=== PATIENT | female | born 1985 | race Caucasian/White ===

== ENCOUNTER 2020-09-02 08:48 | Inpatient (IN) | payer MEDICAID, SELFPAY ==
[2020-09-02] VITALS (14 sets, daily range): BP systolic 111–134; BP diastolic 2–92; PULSE 73–111; RESP 18–20; TEMP 36.5–36.9; O2SAT 94–100; BMI 34.2
--- NOTE | 2020-09-02 09:04 | W.ED.ABDPA2 ---
HPI - Abdominal Pain General: Chief Complaint: Abdominal Pain Stated Complaint: UPPER ABD PAIN W/ N/V Time Seen by Provider: 09/02/20 08:50 Source: patient Mode of arrival: ambulatory Limitations: no limitations History of Present Illness: HPI narrative: 35-year-old female states she has been having epigastric abdominal pain along with vomiting since last night. She states she ate chicken yesterday and started having pain after that. States her pain is currently a 7 out of 10. She continues to have vomiting. Denies any fever. She has had diarrhea as well. MD elicited complaint: abdominal pain Onset (ago): hour(s) Pain Consistency: constant Location: RUQ Associated Symptoms: Reports diarrhea, nausea and vomiting; Denies chills, dysuria and fever(s) Review of Systems Const: Denies: fever(s), chills, body aches or change in appetite Eyes: Denies: blurry vision or eye discomfort ENMT: Denies: throat pain or dental pain Card: Denies: chest pain Resp: Denies: dyspnea GI: Reports: abdominal pain, nausea, vomiting and diarrhea : Denies: dysuria Musc: Denies: neck pain or back pain Skin/Breast: Denies: rash Neuro: Denies: headache(s) Psych: Denies: depression Jorge/Lymph: Denies: easy bruising All/Imm: Denies: urticaria Physical Exam Const: COMMON NORMALS: no acute distress, patient oriented x3 and healthy appearing HENMT: COMMON NORMALS: normocephalic and atraumatic HEAD & SCALP: normocephalic and atraumatic Eye: COMMON NORMALS: Equal, round and reactive pupils present and EOMs intact bilaterally PUPIL: Yes Equal, round and reactive pupils present Neck/C-Spine: COMMON NORMALS: full ROM and supple Chest: COMMONS NORMALS: normal inspection of the chest and normal palpation of entire chest wall Resp: COMMON NORMALS: normal respiratory effort, No retractions, No use of accessory muscles and clear to auscultation bilaterally AUSCULTATION: clear to auscultation bilaterally Cardio: COMMON NORMALS: regular rate, regular rhythm and No murmurs present (Cardio) RATE: regular rate RHYTHM: regular rhythm GI: COMMON NORMALS: Normal to inspection, nondistended, normoactive bowel sounds present, Soft to palpation and no masses PALPATION: Yes Soft to palpation and Yes Tenderness to palpation present (GI) (epigastric and ruq tenderness) Extremity: COMMON NORMALS: normal to inspection and full ROM Neuro: COMMON NORMALS: patient oriented x3, moves all extremities and no focal motor deficits Psych: COMMON NORMALS: mental status grossly normal, Normal thought process present and cooperative THOUGHT PROCESS: Normal thought process present Skin: COMMON NORMALS: no rashes or lesions noted and no wounds GENERAL SKIN EXAM: no rashes or lesions noted Course Vital Signs: Vital signs: Vital Signs Temperature 97.9 F 09/02/20 09:01 Pulse Rate 98 09/02/20 10:24 Respiratory Rate 18 09/02/20 10:24 Blood Pressure 111/57 09/02/20 10:24 Pulse Oximetry 95 09/02/20 10:24 MDM - Abdominal Pain MDM Narrative: Medical decision making narrative: Patient presents with abdominal pain along with vomiting. CT shows a small bowel obstruction likely from adhesions. Will place an NG tube I spoke to Dr. Mirza of surgery and will admit. Patient has been stable while here. Lab Data: Labs: Lab Results 09/02/20 09/02/20 09/02/20 Range/Units 09:21 09:21 09:50 WBC 10.9 H (4.0-10.0) 10^3/ uL RBC 4.01 L (4.1-5.3) 10^6/u L Hgb 14.1 (11.5-15.3) g/dL Hct 41.0 (37.0-47.0) % MCV 102.2 H (81-99) fL MCH 35.2 H (28.0-34.0) pg MCHC 34.4 (30.0-36.0) g/dL RDW 13.1 (12.1-15.1) % Plt Count 327 (130-400) 10^3/c mm MPV 9.0 (7.4-10.4) fL Neut % (Auto) 74.6 % Lymph % (Auto) 17.2 % [place] % (Auto) 6.5 % Eos % (Auto) 0.8 % Baso % (Auto) 0.6 % Neut # (Auto) 8.15 H (1.8-7.7) 10^3/u L Lymph # (Auto) 1.9 (0.8-4.8) 10^3/u L [place] # (Auto) 0.7 (0.2-0.9) 10^3/u L Eos # (Auto) 0.1 (0.0-0.8) 10^3/u L Baso # (Auto) 0.1 (0.0-0.1) 10^3/u L Nucleated RBC % (a uto) 0 % Nucleated RBCs # 0.0 /100WBC Sodium 139 (136-145) mmol/L Potassium 3.9 (3.5-5.1) mmol/L Chloride 102 (98-107) mmol/L Carbon Dioxide 27 (22-29) mmol/L Anion Gap 13.9 (5-19) BUN 16 (6-20) mg/dL Creatinine 0.8 (0.5-0.9) mg/dL GFR Calculation 81.2 L (90-130) mL/min Glucose 109 (65-115) mg/dL Calculated Osmolal ity 290 (285-295) mOsm/k g Calcium 9.1 (8.5-10.5) mg/dL Total Bilirubin 0.2 (0.15-1.2) mg/dL AST 45 H (0-32) U/L ALT 42 H (0-33) U/L Alkaline Phosphata se 68 (35-105) IU/L Total Protein 6.6 (6.6-8.7) g/dL Albumin 3.9 (3.5-5.2) g/dL Globulin 2.7 (1.3-4.6) g/dL Lipase 37 (13-60) U/L HCG, Qual Negative (Negative) Imaging Data ^: US: Radiologist's impression: [address] [address] Ultrasound Report Signed Patient: Domi Charles Unit #: [id number] : 1985 Age/Sex: 35 / F ADM Date: 09/02/20 Loc: ER Room/Bed: Attending Dr: Ordering Provider/Ordering MD: Yamile Maldonado MD Date of Service: 09/02/20 Procedure(s): US gall bladder 43213 Accession Number(s): [id number] Report Number: [id number] WS: [id number] RIGHT UPPER QUADRANT ULTRASOUND HISTORY: ruq pain COMPARISON: None available. Liver: 16.8 cm in length. Normal size liver. No bile duct dilatation or mass. Gallbladder: Normally distended gallbladder with no stones or wall thickening. CBD: 0.4 cm Pancreas: Normal size and echogenicity. Right kidney: 10.6 cm in length. Normal size and echogenicity. No hydronephrosis or mass. Aorta and IVC: Unremarkable abdominal aorta and IVC. No ascites. US/US gall bladder [id number] IMPRESSION: Normal RIGHT upper quadrant ultrasound. CT Abd/Pel: Radiologist's impression: [facility] [address] [place] [address] CT Scan Report Signed Patient: Domi Charles Unit #: [id number] : 1985 Age/Sex: 35 / F ADM Date: 09/02/20 Loc: ER Room/Bed: Attending Dr: Ordering Provider/Ordering MD: Yamile Maldonado MD Date of Service: 09/02/20 Procedure(s): CT abdomen pelvis w con* [id number] Accession Number(s): [id number] Report Number: [id number] WS: [id number] CT ABDOMEN AND PELVIS WITH CONTRAST HISTORY: Abdominal and epigastric pain with nausea, vomiting and diarrhea. TECHNIQUE: Imaging performed of the abdomen and pelvis with IV contrast. Single phase imaging of the abdomen. Coronal and sagittal reformats are submitted. All CT scans at [facility] use at least one of these dose optimization techniques: automated exposure control; mA and/or kV adjustment per patient size (includes targeted exams where dose is matched to clinical indication); or iterative reconstruction. IV CONTRAST: Omnipaque 300; 95 mL IV. Oral contrast: No DLP: 883.06 mGy.cm COMPARISON: None available. Lower thorax: Lung bases are clear. Heart is normal size. No hiatal hernia. Liver/biliary system: Normal size liver. 12 mm cyst in the lateral LEFT lobe. Gallbladder: Normal. No gallstones or wall thickening. No pericholecystic fluid. Pancreas: Normal. Spleen: Normal. Adrenal glands: Normal. Right kidney: Normal. Left kidney: Cortical cyst measures 4 mm in the mid kidney. No obstruction. Aorta: Normal. Lymphadenopathy: None. Free fluid: There is a small amount of free fluid in the RIGHT lower quadrant surrounding several of the distal small bowel loops. No free air is identified. GI tract: Mildly dilated small bowel loops. Loops are distended with fluid measuring up to 2.8 cm in diameter. There is increased hyperemia involving the distal small bowel mucosa and there is a changing caliber in the RIGHT lower quadrant of the small bowel loops with adjacent free fluid. The appendix is normal. The abnormal small bowel process extends to the uterus and RIGHT fallopian tube. Abdominal wall: Unremarkable abdominal wall. No hernia. Pelvis: Small amount of free fluid in the pelvis. Uterus is midline. Free fluid in RIGHT lower quadrant Bones: Unremarkable. CT/CT abdomen pelvis w con* [id number] IMPRESSION: 1. Small bowel obstruction with a changing caliber in the RIGHT lower quadrant which may be due to adhesions. No mass is identified. The fluid extends to the uterus and surrounds the RIGHT fallopian tube. 2. Free fluid in the RIGHT lower quadrant adjacent to the small bowel changing caliber. 3. Normal appendix. Discharge Plan Discharge Patient Disposition: Admitted As Inpatient Clinical Impression: Small bowel obstruction Condition: Stable Coding Level of Care Code ED Incident Engineer for Nikig Fwd Exam Comprehensive
[2020-09-02] MEDS: morphine 4 mg/mL SDV 1 mL IVP (09:26)
[2020-09-02] MEDS: ondansetron 2 mg/ML SDV 2 mL 4 MG IVP (09:26)
[2020-09-02] MEDS: sodium chloride 0.9% 1,000 ML 999 ML IV (09:27)
[2020-09-02 09:33] LABS: Basophils # 0.1 10^3/uL (0.0-0.1); Basophils % 0.6 %; Eosinophils # 0.1 10^3/uL (0.0-0.8); Eosinophils % 0.8 %; Hemoglobin 14.1 g/dL (11.5-15.3); Lymphocytes # 1.9 10^3/uL (0.8-4.8); Lymphocytes % 17.2 %; Mean Corpuscular HGB Conc 34.4 g/dL (30.0-36.0); Mean Corpuscular Hemoglobin 35.2 pg (28.0-34.0); Mean Corpuscular Volume 102.2 fL (81-99); Monocytes # 0.7 10^3/uL (0.2-0.9); Monocytes % 6.5 %; Neutrophils # 8.15 10^3/uL (1.8-7.7); Neutrophils % 74.6 %; Nucleated Red Blood Cells % 0 %; Platelet Count 327 10^3/cmm (130-400); Red Blood Count 4.01 10^6/uL (4.1-5.3); Red Cell Distribution Width 13.1 % (12.1-15.1); White Blood Count 10.9 10^3/uL (4.0-10.0)
[2020-09-02 09:46] LABS: Alanine Aminotransferase 42 U/L (0-33); Albumin Level 3.9 g/dL (3.5-5.2); Alkaline Phosphatase 68 IU/L (35-105); Blood Urea Nitrogen 16 mg/dL (6-20); Calcium 9.1 mg/dL (8.5-10.5); Carbon Dioxide 27 mmol/L (22-29); Chloride 102 mmol/L (98-107); Globulin 2.7 g/dL (1.3-4.6); Glomerular Filtration Rate 81.2 mL/min (90-130); Glucose 109 mg/dL (65-115); Lipase 37 U/L (13-60); Osmolality Calculated 290 mOsm/kg (285-295); Total Bilirubin 0.2 mg/dL (0.15-1.2); Total Protein 6.6 g/dL (6.6-8.7)
--- NOTE | 2020-09-02 09:58 | CT_ITS ---
WS: [id number] CT ABDOMEN AND PELVIS WITH CONTRAST HISTORY: Abdominal and epigastric pain with nausea, vomiting and diarrhea. TECHNIQUE: Imaging performed of the abdomen and pelvis with IV contrast. Single phase imaging of the abdomen. Coronal and sagittal reformats are submitted. All CT scans at [facility] use at least one of these dose optimization techniques: automated exposure control; mA and/or kV adjustment per patient size (includes targeted exams where dose is matched to clinical indication); or iterativ e reconstruction. IV CONTRAST: Omnipaque 300; 95 mL IV. Oral contrast: No DLP: 883.06 mGy.cm COMPARISON: None available. Lower thorax: Lung bases are clear. Heart is normal size. No hiatal hernia. Liver/biliary system: Normal size liver. 12 mm cyst in the lateral LEFT lobe. Gallbladder: Normal. No gallstones or wall thickening. No pericholecystic fluid. Pancreas: Normal. Spleen: Normal. Adrenal glands: Normal. Right kidney: Normal. Left kidney: Cortical cyst measures 4 mm in the mid kidney. No obstruction. Aorta: Normal. Lymphadenopathy: None. Free fluid: There is a small amount of free fluid in the RIGHT lower quadrant surrounding several of the distal small bowel loops. No free air is identified. GI tract: Mildly dilated small bowel loops. Loops are distended with fluid measuring up to 2.8 cm in diameter. There is increased hyperemia involving the distal small bowel mucosa and there is a changin g caliber in the RIGHT lower quadrant of the small bowel loops with adjacent free fluid. The appendix is normal. The abnormal small bowel process extends to the uterus and RIGHT fallopian tube. Abdominal wall: Unremarkable abdominal wall. No hernia. Pelvis: Small amount of free fluid in the pelvis. Uterus is midline. Free fluid in RIGHT lower quadra nt Bones: Unremarkable. CT/CT abdomen pelvis w con* [id number] IMPRESSION: 1. Small bowel obstruction with a changing caliber in the RIGHT lower quadrant which may be due to adhesions. No mass is identified. The fluid extends to the uterus and surrounds the RIGHT fallopian tube. 2. Free fluid in the RIGHT lower quadrant adjacent to the small bowel changing caliber. 3. Normal appendix.
[2020-09-02 10:03] LABS: Anion Gap 13.9 (5-19); Potassium 3.9 mmol/L (3.5-5.1); Sodium 139 mmol/L (136-145)
[2020-09-02 10:11] LABS: Aspartate Amino Transferase 45 U/L (0-32)
[2020-09-02 10:19] LABS: HCG Qualitative Urine. Negative (Negative)
[2020-09-02] MEDS: iohexol 300 mg/mL 100 mL Btl IV (10:31)
[2020-09-02] MEDS: LORazepam 2 mg/mL INJ 1 mL 1 MG IVP (11:20)
[2020-09-02] MEDS: HYDROmorphone 1 mg/mL INJ 1 mL 0.5 MG IVP (11:20)
--- NOTE | 2020-09-02 11:48 | XR_ITS ---
WS: [id number] PORTABLE CHEST HISTORY: post NGT placement COMPARISON: None available. Nasogastric tube is been placed with tip terminating at the GE junction. The proximal port is above t he GE junction. Lungs are clear and well expanded. No pleural effusion or pneumothorax. Cardiac size: Normal. Mediastinum/Aorta: Normal mediastinum. No osseous abnormality seen. XR/XR chest 1V portable [id number] IMPRESSION: Nasogastric tube needs to be advanced at least 10 cm for more optimal positioni ng.
[2020-09-02] MEDS: sodium chloride 0.9% 1,000 ML 100 ML IV (16:23)
--- NOTE | 2020-09-02 17:45 | XR_ITS ---
WS: [id number] XR chest 1V portable [id number] REASON FOR EXAM: NG TUBE PLACEMENT CONFIRMATION FINDINGS: NG tube has been advanced since the previous examination of earlier this same day. The tube is moved from the midesophagus to a position compatible with the body of the stomach. The lung thomas appear clear and the heart and mediastinum are within normal limits. XR/XR chest 1V portable [id number] IMPRESSION: Nasogastric tube now in proper position.
--- NOTE | 2020-09-02 21:56 | PM.HP ---
Providers/Chief Complaint Admitting Physician: Maximiliano Mirza MD Primary Care Provider: Alena Doss Chief Complaint: UPPER ABD PAIN W/ N/V History of Present Illness Domi Charles is a 35 year old female who presents to the ER today with generalized abdominal pain worse on the right than the left associate with multiple episodes of nausea and vomiting since yesterday evening. Patient states that the pain is constant, sharp, does not radiate, no aggravating or relieving factors. She denies any fevers or chills. She states that she has a longstanding history of constipation for which she takes MiraLAX daily and she usually has loose bowel movements. No prior colonoscopy. No prior admissions for bowel obstruction. Review of Systems General: Reports: 10 or more systems reviewed and unremarkable except in HPI and below Medications/Allergies Home Medications Medication Instructions Recorded Confirmed Last Taken Type fexofenadine [Samaria] 180 mg PO DAILY@08 09/02/20 09/02/20 09/01/20 History Allergies Allergy/AdvReac Type Severity Reaction Status Date / Time No Known Allergies Allergy Verified 09/02/20 09:05 PFSH Acute PFSH: Surgical History H/O oophorectomy History of delivery Female Reproductive History: Date of last menstrual period: 07/17/20 Vitals/I&O/Wt Last Vital Signs Temp 98.4 F 09/02/20 20:00 Pulse 95 09/02/20 20:00 Resp 19 H 09/02/20 20:00 BP 134/82 09/02/20 20:00 Pulse Ox 94 09/02/20 20:00 Weight last 48 hrs Weight 187 lb Physical Exam Narrative: EXAM NARRATIVE: HEENT: Normocephalic Eye: Sclera /conjunctiva normal Respiratory and chest: Bilateral clear breath sounds on auscultation Cardiovascular: Normal S1 and S2 heart sounds Abdomen: Soft to palpation, mildly tender right lower quadrant, no guarding or rigidity Neurological: Oriented to place person and time Skin: Intact, no lesions appreciated on gross exam Data : 09/02/20 09:21 09/02/20 09:21 A&P Assessment and plan (1) Small bowel obstruction: 35-year-old female who presents with abdominal pain, nausea, vomiting with a longstanding history of constipation. She has had prior and oophorectomy. CT scan showed possible small bowel obstruction. Currently patient is hemodynamically stable with no evidence of peritonitis. Admit as inpatient NG tube to low intermittent suction IV fluids Pepcid for GI prophylaxis Lovenox for DVT prophylaxis Abdominal series in the morning CBC, BMP daily Status: Acute Attestations Medical Necessity Statement*: Patient will need greater than 2 nights of inpatient stay to ensure resolution of obstruction. Coding Level of Care Code Acute Weight Loss Consultant for Leidy Agosto Diagnoses Small bowel obstruction K56.609
[2020-09-02] MEDS: morphine 4 mg/mL SDV 1 mL 2 MG IVP (23:44)
[2020-09-02] MEDS: famotidine 20 mg/2 mL INJ IVP (23:45)
[2020-09-03] VITALS (10 sets, daily range): BP systolic 115–132; BP diastolic 66–83; PULSE 70–104; RESP 16–20; TEMP 36.7–37.2; O2SAT 89–98
[2020-09-03] MEDS: D5-NS 0.45% + KCL 20 mEq 20 MEQ/1,000 ML BAG 100 MEQ IV ×3 (02:27→22:04)
[2020-09-03 05:04] LABS: Basophils % 0.4 %; Eosinophils # 0.2 10^3/uL (0.0-0.8); Eosinophils % 2.5 %; Hematocrit 36.4 % (37.0-47.0); Hemoglobin 12.1 g/dL (11.5-15.3); Lymphocytes # 2.4 10^3/uL (0.8-4.8); Lymphocytes % 30.5 %; Mean Corpuscular HGB Conc 33.2 g/dL (30.0-36.0); Mean Corpuscular Hemoglobin 34.4 pg (28.0-34.0); Mean Corpuscular Volume 103.4 fL (81-99); Mean Platelet Volume 8.9 fL (7.4-10.4); Monocytes # 0.7 10^3/uL (0.2-0.9); Monocytes % 8.8 %; Neutrophils # 4.52 10^3/uL (1.8-7.7); Neutrophils % 57.4 %; Nucleated Red Blood Cells % 0 %; Platelet Count 280 10^3/cmm (130-400); Red Blood Count 3.52 10^6/uL (4.1-5.3); Red Cell Distribution Width 13.2 % (12.1-15.1); White Blood Count 7.9 10^3/uL (4.0-10.0)
[2020-09-03 05:30] LABS: Anion Gap 11.5 (5-19); Blood Urea Nitrogen 14 mg/dL (6-20); Calcium 8.3 mg/dL (8.5-10.5); Carbon Dioxide 26 mmol/L (22-29); Chloride 107 mmol/L (98-107); Glomerular Filtration Rate 62.7 mL/min (90-130); Glucose 91 mg/dL (65-115); Osmolality Calculated 292 mOsm/kg (285-295); Potassium 3.5 mmol/L (3.5-5.1); Sodium 141 mmol/L (136-145)
--- NOTE | 2020-09-03 05:31 | PC.NURSE ---
AT THE START OF THE SHIFT THE NG TUBE WAS ADVANCED APPROXIMATELY 10 CM FURTHER. STOMACH CONTENTS WERE CLEAR TO YELLOW BILE AT THIS TIME. THROUGH OUT THE NIGHT IT MAINTAINED THIS CONTENT. THE PATIENT REPORTS SHE WAS ABLE TO REST AND SLEEP WELL.
--- NOTE | 2020-09-03 06:00 | XR_ITS ---
WS: [id number] XR abdomen min 2V [id number] REASON FOR EXAM: sbo FINDINGS: The nasogastric tube has been passed to a position beyond the ligament of Treitz. Gas is seen within the colon and there is a dilated loop of small bowel in the upper mid abdomen. No free air or retroperitoneal air. No mass or significant calcification. XR/XR abdomen min 2V [id number] IMPRESSION: Nasogastric tube position and bowel gas pattern as above.
[2020-09-03] MEDS: enoxaparin 40 mg/0.4 mL Syringe SUBCUT (06:39)
[2020-09-03] MEDS: morphine 4 mg/mL SDV 1 mL 2 MG IVP ×4 (10:13→22:30)
[2020-09-03] MEDS: famotidine 20 mg/2 mL INJ IVP ×2 (10:13→22:29)
--- NOTE | 2020-09-03 12:51 | PC.CHAP ---
Pastoral Care Encounter/Spiritual Assessment Type of Contact [] Declined artificial insemination technician visit [] Patient/Family/Request visit [] Outpatient visit [] Follow-up visit [] Physician referral [] Code/Alert [] Routine visit [] Staff referral [] Actively dying [] Patient sleeping [] Family support [] [] Out of room [] Palliative care [] [] Receiving care in room [] Pre-surgical visit [] Trauma [] Long length of stay [] ICU visit [xx] Other: Follow up needed Relational/Emotional Strength [] Patient feels connected with others/family/visitors/staff [] Distress [] Loneliness/isolation [] Abandonment Spirituality of Patient [] Person of Sheila [] Attends [employer] of their Sheila [] Believes in Prayer [] Reads Bible or Christian materials [] There are Spiritual issues to be addressed Shirrer Interventions [] Prayer [] Active listening [] Non-anxious presence [] Spiritual/emotional support [] Crisis/trauma care [] Spiritual counseling [] Bereavement support [] Provided bereavement packet [] Provided Bible/devotional materials [] Provided toy/stuffed animal, coloring book to patient or family member [] Provided Communion [] Anointing/[place] [] Salvation [] Completed spiritual assessment [] Other: Impact on Illness or Injury [] Angry [] Fearful [] Anxious [] Often cries [] Exhaustion [] Unable to work [] Unable to attend amish [] Unable to walk/stand [] Unable to read [] Unable to drive [] Unable to eat/drink [] Unable to sleep [] Unable to be with family [] Patient intubated [] Other: Summary Very messy mishap occurred requiring housekeeping and med staff lelngth of time to clean up. No artificial insemination technician visit. Time spent with patient
--- NOTE | 2020-09-03 17:22 | P.PN_ITS ---
Subjective Subjective: Interval history: Patient denies significant abdominal pain, no nausea or vomiting, NG tube to suction, flatus present, no BM Vitals/I&O/Wt Last Vital Signs Temp 99.0 F 09/03/20 15:12 Pulse 89 09/03/20 15:12 Resp 17 09/03/20 15:12 BP 115/66 09/03/20 15:12 Pulse Ox 89 L 09/03/20 15:12 09/03/20 09/03/20 09/03/20 06:59 14:59 22:59 Intake Total 1000 / 1000 Output Total 300 / 500 Balance -300 / -500 1000 / 1000 Weight last 48 hrs Weight 187 lb Physical Exam Narrative: EXAM NARRATIVE: Abdomen: Soft, nondistended, minimally tender Data : 09/03/20 04:39 09/03/20 04:39 A&P Assessment and plan (1) Small bowel obstruction: 35-year-old female who presents with small bowel obstruction currently patient is hemodynamically stable with no evidence of peritonitis. Abdominal x- ray shows air in the colon Admit as inpatient NG tube to be clamped 1 bottle magnesium citrate and milk of molasses enema Abdominal series tomorrow morning Start clear liquid diet IV fluids Pepcid for GI prophylaxis Lovenox for DVT prophylaxis Abdominal series in the morning CBC, BMP daily Status: Acute Attestations Medical Necessity Statement*: Small bowel obstruction requiring continued inpatient stay Coding Level of Care Code Acute Certified Medicine Aide for Leidy Agosto Diagnoses Small bowel obstruction K56.609
[2020-09-04] VITALS (11 sets, daily range): BP systolic 116–131; BP diastolic 74–88; PULSE 70–90; RESP 16–20; TEMP 36.3–36.8; O2SAT 94–98
--- NOTE | 2020-09-04 03:27 | PC.NURSE ---
AT APPROXIMATELY 2200 THE PATIENT REPORTED SHE WAS HAVING AN INCREASE IN ABDOMINAL PAIN AND FELT LIKE HER STOMACH WAS GETTING FULL. SHE DENIED ANY BOWEL MOVEMENTS. SHE IS PASSING GAS. PATIENT HOOKED BACK UP TO SUCTION. AFTER ABOUT 30 MINUTES THE PATIENT WAS REASSESSED AND REPORTED SHE FELT SOME RELIEF. THE PATIENT HAS BEEN ABLE TO REST SINCE.
[2020-09-04] MEDS: morphine 4 mg/mL SDV 1 mL 2 MG IVP ×5 (03:43→22:51)
--- NOTE | 2020-09-04 06:00 | XRR_ITS ---
PROCEDURE INFORMATION: Exam: XR Abdomen, 2 Views Exam date and time: 09/04/2020 6:07 AM Age: 35 years old Clinical indication: Abdominal pain; Generalized; Additional info: Sbo TECHNIQUE: Imaging protocol: XR of the abdomen. Views: 2 Views. COMPARISON: CR XR abdomen min 2V [id number] 09/03/2020 6:31 AM FINDINGS: Tubes, catheters and devices: NG tube terminates in the distal stomach. Gastrointestinal tract: Minimal scattered air-fluid levels in bowel loops in the left upper quadrant, slightly decreased. Bowel gas is noted in the colon and distal rectum. Intraperitoneal space: No free air. Bones/joints: Left hip prosthesis. XR/XR abdomen min 2V [id number] IMPRESSION: Minimal scattered air-fluid levels in bowel loops in the left upper quadrant, slightly decreased. Bowel gas is noted in the colon and distal rectum.
[2020-09-04] MEDS: enoxaparin 40 mg/0.4 mL Syringe SUBCUT (06:25)
[2020-09-04 06:56] LABS: Basophils % 0.5 %; Eosinophils # 0.3 10^3/uL (0.0-0.8); Eosinophils % 4.7 %; Hemoglobin 11.2 g/dL (11.5-15.3); Lymphocytes # 1.8 10^3/uL (0.8-4.8); Lymphocytes % 32.4 %; Mean Corpuscular Hemoglobin 34.3 pg (28.0-34.0); Mean Platelet Volume 9.2 fL (7.4-10.4); Monocytes # 0.6 10^3/uL (0.2-0.9); Monocytes % 9.9 %; Neutrophils # 2.89 10^3/uL (1.8-7.7); Neutrophils % 52.1 %; Nucleated Red Blood Cells % 0 %; Platelet Count 271 10^3/cmm (130-400); Red Blood Count 3.27 10^6/uL (4.1-5.3); Red Cell Distribution Width 13.2 % (12.1-15.1); White Blood Count 5.6 10^3/uL (4.0-10.0)
[2020-09-04 07:03] LABS: Anion Gap 10.5 (5-19); Blood Urea Nitrogen 7 mg/dL (6-20); Calcium 8.3 mg/dL (8.5-10.5); Carbon Dioxide 28 mmol/L (22-29); Chloride 106 mmol/L (98-107); Glomerular Filtration Rate 81.2 mL/min (90-130); Glucose 112 mg/dL (65-115); Osmolality Calculated 291 mOsm/kg (285-295); Potassium 3.5 mmol/L (3.5-5.1); Sodium 141 mmol/L (136-145)
[2020-09-04] MEDS: ondansetron 2 mg/ML SDV 2 mL 4 MG IVP ×3 (08:12→22:50)
[2020-09-04] MEDS: famotidine 20 mg/2 mL INJ IVP ×2 (08:20→22:43)
[2020-09-04] MEDS: D5-NS 0.45% + KCL 20 mEq 20 MEQ/1,000 ML BAG 100 MEQ IV ×2 (08:21→18:31)
--- NOTE | 2020-09-04 09:04 | P.PN_ITS ---
Subjective Subjective: Interval history: Patient had NG tube clamped last night and this morning developed nausea and vomiting and the NG tube was hooked back to low intermittent suction. She received enemas yesterday with no significant respone. Today she complains of generalized abdominal pain Vitals/I&O/Wt Last Vital Signs Temp 98.1 F 09/04/20 07:19 Pulse 86 09/04/20 07:19 Resp 18 09/04/20 08:10 BP 118/77 09/04/20 07:19 Pulse Ox 98 09/04/20 07:19 09/03/20 09/04/20 09/04/20 22:59 06:59 14:59 Intake Total 1573.333 / 2933.333 360 / 2933.333 1000 / 1000 Balance 1573.333 / 2933.333 360 / 2933.333 1000 / 1000 Physical Exam Narrative: EXAM NARRATIVE: Abdomen: Soft, tender right lower quadrant, no guarding or rigidity, NG tube to low abdomen suction Data : 09/04/20 05:34 09/04/20 05:34 A&P Assessment and plan (1) Small bowel obstruction: 35-year-old female who presents with small bowel obstruction currently patient is hemodynamically stable with no evidence of peritonitis. Abdominal x- ray shows air in the colon NG tube to low intermittent suction Fleets enema and soapsuds enema today Abdominal series tomorrow morning Keep n.p.o. Continue IV fluids Pepcid for GI prophylaxis Lovenox for DVT prophylaxis CBC, BMP daily Status: Acute Attestations Medical Necessity Statement*: Patient will need greater than 2 nights of inpatient stay to ensure resolution of obstruction Coding Level of Care Code Acute Community Outreach Specialist for Leidy Agosto Diagnoses Small bowel obstruction K56.609
[2020-09-04] MEDS: Fleet Enema 133 mL Enema PR (14:38)
[2020-09-05] VITALS (9 sets, daily range): BP systolic 108–136; BP diastolic 69–84; PULSE 66–86; RESP 16–20; TEMP 36.4–36.7; O2SAT 97–99
[2020-09-05] MEDS: morphine 4 mg/mL SDV 1 mL 2 MG IVP ×3 (03:14→22:39)
[2020-09-05] MEDS: ondansetron 2 mg/ML SDV 2 mL 4 MG IVP ×2 (03:15→07:22)
[2020-09-05 05:44] LABS: Basophils % 0.4 %; Eosinophils # 0.2 10^3/uL (0.0-0.8); Eosinophils % 3.5 %; Hematocrit 33.2 % (37.0-47.0); Hemoglobin 10.5 g/dL (11.5-15.3); Lymphocytes # 1.5 10^3/uL (0.8-4.8); Lymphocytes % 27.5 %; Mean Corpuscular HGB Conc 31.6 g/dL (30.0-36.0); Mean Corpuscular Volume 107.4 fL (81-99); Mean Platelet Volume 9.4 fL (7.4-10.4); Monocytes # 0.6 10^3/uL (0.2-0.9); Monocytes % 10.9 %; Neutrophils # 3.17 10^3/uL (1.8-7.7); Neutrophils % 57.5 %; Nucleated Red Blood Cells % 0 %; Platelet Count 253 10^3/cmm (130-400); Red Blood Count 3.09 10^6/uL (4.1-5.3); Red Cell Distribution Width 13.1 % (12.1-15.1); White Blood Count 5.5 10^3/uL (4.0-10.0)
--- NOTE | 2020-09-05 06:00 | XRR_ITS ---
PROCEDURE INFORMATION: Exam: XR Abdomen, 2 Views Exam date and time: 09/05/2020 5:51 AM Age: 35 years old Clinical indication: Other: Sbo TECHNIQUE: Imaging protocol: XR of the abdomen. Views: 2 Views. COMPARISON: CR (ABDOMEN, ) 09/04/2020 6:07 AM FINDINGS: Tubes, catheters and devices: Continued positioning of the distal end of the enteric tube in the left upper abdomen likely in a jejunal loop. Heart/Mediastinum: Still no cardiomegaly or consolidation in the lung bases. Gastrointestinal tract: Still no bowel dilatation. Intraperitoneal space: Still no free air. Bones/joints: Left hip prosthesis still in normal alignment. No apparent acute bony disease. Other findings: Still no hepatosplenomegaly. XR/XR abdomen min 2V [id number] IMPRESSION: No acute findings or significant change. Tip of the enteric tube still in the left upper abdomen likely in a jejunal loop.
[2020-09-05 06:05] LABS: Anion Gap 9.8 (5-19); Blood Urea Nitrogen 3 mg/dL (6-20); Calcium 8.6 mg/dL (8.5-10.5); Carbon Dioxide 28 mmol/L (22-29); Chloride 105 mmol/L (98-107); Creatinine Clr Calc Pharmacy 87.2934; Glomerular Filtration Rate 70.8 mL/min (90-130); Glucose 91 mg/dL (65-115); Osmolality Calculated 284 mOsm/kg (285-295); Potassium 3.8 mmol/L (3.5-5.1); Sodium 139 mmol/L (136-145)
[2020-09-05] MEDS: enoxaparin 40 mg/0.4 mL Syringe SUBCUT (06:20)
[2020-09-05] MEDS: D5-NS 0.45% + KCL 20 mEq 20 MEQ/1,000 ML BAG 100 MEQ IV (06:21)
[2020-09-05] MEDS: famotidine 20 mg/2 mL INJ IVP ×2 (07:22→21:59)
--- NOTE | 2020-09-05 08:11 | CTR_ITS ---
PROCEDURE INFORMATION: Exam: CT Abdomen And Pelvis With Contrast Exam date and time: 09/05/2020 9:25 AM Age: 35 years old Clinical indication: Abdominal pain; Additional info: Sbo TECHNIQUE: Imaging protocol: Computed tomography of the abdomen and pelvis with intravenous contrast. Radiation optimization: All CT scans at this facility use at least one of these dose optimization techniques: automated exposure control; mA and/or kV adjustment per patient size (includes targeted exams where dose is matched to clinical indication); or iterative reconstruction. Contrast material: OMNI 300; Contrast volume: 95 ml; Contrast route: INTRAVENOUS (IV); COMPARISON: CT abdomen pelvis w con* [id number] 09/02/2020 10:21 AM RADIATION DOSE METRICS: Total DLP (mGy-cm): 962.74 FINDINGS: Tubes, catheters and devices: Distal end of the feeding tube is positioned in the proximal jejunum. Liver: 11 mm cyst in the left hepatic lobe has benign features. Follow-up is not necessary. Gallbladder and bile ducts: Normal. No calcified stones. No ductal dilation. Pancreas: Normal. No ductal dilation. Spleen: Normal. No splenomegaly. Adrenal glands: Normal. No mass. Kidneys and ureters: There is a sub cm cyst with benign features in the left kidney. Follow-up is not necessary. Stomach and bowel: There is mild mucosal thickening of the distal ileum and large bowel. There is diverticulosis of the colon without evidence of diverticulitis. There is diverticulosis of the colon without evidence of diverticulitis. Appendix: A normal appendix is identified. Intraperitoneal space: Unremarkable. No free air. No significant fluid collection. Vasculature: Unremarkable. No abdominal aortic aneurysm. Lymph nodes: Unremarkable. No enlarged lymph nodes. Urinary bladder: Unremarkable as visualized. Reproductive: 4.0 cm septated cystic lesion in the right ovary. Bones/joints: Left total hip replacement with resultant artifact obscuring adjacent structures. Soft tissues: Tiny fat containing umbilical hernia. CT/CT abdomen pelvis w con* [id number] IMPRESSION: 1. Mild mucosal thickening of the distal ileum and large bowel, consistent with nonspecific enteritis. 2. There is a 4.0 cm septated cystic lesion in the right ovary. Pelvic ultrasound recommended for further evaluation. COMMENTS: Consistent with the [employer]'s Incidental Findings Committee white paper (J Am Kacie Radiol 2018): Any incidental renal lesion less than 1 cm or classified as too small to characterize, or any incidental cystic renal lesion characterized as simple-appearing, is likely benign. No follow-up imaging is recommended for these lesions per consensus recommendations based on imaging criteria. Radiation Dose CTDIVOL = (mGy): DLP = 962.74 (mGy-cm)
--- NOTE | 2020-09-05 08:13 | PM.PN ---
Subjective Subjective: Interval history: Patient continues to complain of abdominal pain, no nausea or vomiting, NG tube to suction, denies passing flatus no BM Medications: Reviewed: Yes Vitals/I&O/Wt Last Vital Signs Temp 98.0 F 09/05/20 08:01 Pulse 66 09/05/20 08:01 Resp 18 09/05/20 08:01 BP 116/81 09/05/20 08:01 Pulse Ox 97 09/05/20 08:01 09/04/20 09/05/20 09/05/20 22:59 06:59 14:59 Intake Total 1000 / 3000 1000 / 3000 Output Total 200 / 400 200 / 400 Balance 800 / 2600 800 / 2600 Physical Exam Narrative: EXAM NARRATIVE: Abdomen: Soft, nondistended, tender Data : 09/05/20 05:10 09/05/20 05:10 A&P Assessment and plan (1) Small bowel obstruction: 35-year-old female who presents with small bowel obstruction currently patient is hemodynamically stable with no evidence of peritonitis. Abdominal x-ray shows air in the colon but patient passing any flatus, no BM even with enemas NG tube to low intermittent suction CT abdomen pelvis with p.o. and IV contrast Keep n.p.o. Continue IV fluids Pepcid for GI prophylaxis Lovenox for DVT prophylaxis CBC, BMP daily Status: Acute Attestations Medical Necessity Statement*: sbo requiring continued inpatient stay to ensure resolution Coding Level of Care Code Acute Treasury Associate for Leidy Agosto Diagnoses Small bowel obstruction K56.609
--- NOTE | 2020-09-05 09:49 | PC.NURSE ---
contrast contrast drank orally - ng clamped
[2020-09-05] MEDS: iohexol 300 mg/mL 100 mL Btl IV (12:55)
[2020-09-05] MEDS: iohexol 300 mg/mL 50 mL Btl PO (12:56)
--- NOTE | 2020-09-05 13:12 | PC.NURSE ---
Dr Hermes Mirza in pts room with CT update - orders rec'd to leave NG clamped -
[2020-09-05] MEDS: ketorolac 30 mg/mL INJ 15 MG IVP ×2 (15:53→21:59)
--- NOTE | 2020-09-05 18:54 | PC.NURSE ---
LATE ENTRY AT APPROXIMATELY 1730 WHILE IN PTS ROOM - THIS NURSE QUESTIONED PT REGARDING ABILITY TO TOLERATE CLEAR LIQUID - PT STATES SHE IS TOLERATING IT WELL AND HAS BEEN EATING SOME OF HER HUSBANDS JOHNATHAN FRIAMELIE - EDUCATED PT TO DIET OF CLEAR LIQUID AND DR ALMAZAN'S ORDERS TO REMAIN CLEAR LIQUID - ZULEIKA WELL
[2020-09-06] MEDS: diphenhydrAMINE 50 mg/mL SDV 1mL 12.5 MG IVP (00:20)
[2020-09-06 00:31] VITALS: BP 126/86; PULSE 72; RESP 18; TEMP 36.9; O2SAT 98
[2020-09-06] MEDS: D5-NS 0.45% + KCL 20 mEq 20 MEQ/1,000 ML BAG 100 MEQ IV (03:18)
[2020-09-06 04:11] VITALS: BP 120/75; PULSE 48; RESP 18; TEMP 36.3; O2SAT 95
[2020-09-06] MEDS: enoxaparin 40 mg/0.4 mL Syringe SUBCUT (05:43)
--- NOTE | 2020-09-06 06:08 | PC.NURSE ---
SHIFT SUMMARY Rested well after receiving IV Benadryl for sleep. Was medicated with IV Toradol for abd pain but c/o it did not work as well and received IV Morphine to relieve pain. No further c/o through night. Abd is tender on right side but soft. Bowel sounds present and reports is passing gas but no BM. IV infusing without difficulty at 100ml/hr rate. NG tube intact and remains clamped. Kalyan clear liquid diet well.
[2020-09-06 07:50] VITALS: BP 121/77; PULSE 93; RESP 16; TEMP 36.7; O2SAT 95
[2020-09-06] MEDS: HYDROcodone-acetaminophen 5-325 mg Tablet 1 TAB PO ×2 (08:55→14:45)
[2020-09-06 11:22] VITALS: BP 122/86; PULSE 78; RESP 14; TEMP 36.6; O2SAT 99
--- NOTE | 2020-09-06 13:54 | PM.PN ---
Subjective Subjective: Interval history: Patient did well overnight after NG tube was clamped, denies any nausea or vomiting, passing flatus, no BM Medications: Reviewed: Yes Vitals/I&O/Wt Last Vital Signs Temp 97.9 F 09/06/20 11:22 Pulse 78 09/06/20 11:22 Resp 14 09/06/20 11:22 BP 122/86 09/06/20 11:22 Pulse Ox 99 09/06/20 11:22 09/05/20 09/06/20 09/06/20 22:59 06:59 14:59 Intake Total 1000 / 1600 600 / 1600 1999 Balance 1000 / 1500 600 / 1500 1999 Physical Exam Narrative: EXAM NARRATIVE: Abdomen: Soft, mildly tender, no guarding or rigidity Data : 09/05/20 05:10 09/05/20 05:10 A&P Assessment and plan (1) Small bowel obstruction: 35-year-old female who presents with small bowel obstruction currently patient is hemodynamically stable with no evidence of peritonitis. CT did not show any evidence of obstruction. DC NG tube Advance to full liquid diet Continue IV fluids Pepcid for GI prophylaxis Lovenox for DVT prophylaxis CBC, BMP daily If she does well today she can go home on full liquid diet which can be advanced as tolerated. Status: Acute Attestations Medical Necessity Statement*: Small bowel obstruction, appears to be resolving Coding Level of Care Code Acute Human Resources Receptionist for Leidy Agosto Diagnoses Small bowel obstruction K56.609
--- NOTE | 2020-09-06 14:03 | P.DS_ITS ---
Discharge Providers Date of Admission: 09/02/20 11:16 Date of Discharge: September 06, 2020 Attending Provider at Admission: Maximiliano Mriza MD Attending Provider at Discharge: Maximiliano Mirza MD Primary Care Provider: Alena Doss Diagnoses at Discharge Discharge Diagnosis (1) Small bowel obstruction: Status: Acute Reason for Visit Reason for Visit: UPPER ABD PAIN W/ N/V Hospital Course Hospital Course This is a 35-year-old female presented to the ER with abdominal pain nausea vomiting and was noted to have small bowel obstruction which is assumed to be secondary to adhesions. Patient was managed conservatively with NG tube and bowel rest. By day 3 patient was passing bowel movements and a subsequent CT scan showed contrast within the colon. At time of discharge patient is tolerating full liquid diet, ambulating and pain controlled with oral pain medications. Her vital signs are stable. CT scan of the abdomen pelvis showed possible enteritis and therefore she was discharged home on oral Cipro and Flagyl Discharge Data Data Completed and Pending: Completed Studies During Hospitalization Category Date Time Status CT abdomen pelvis w con* [id number] Rout ine Cat Scan 09/05/20 08:[address] abdomen pelvis w con* [id number] Urge nt Cat Scan 09/02/20 09:58 Completed XR abdomen min 2V [id number] Routine Exams 09/03/20 06:00 Completed XR abdomen min 2V [id number] Routine Exams 09/04/20 06:00 Completed XR abdomen min 2V [id number] Routine Exams 09/05/20 06:00 Completed XR chest 1V rachel ble [id number] Routine Exams 09/02/20 11:48 Completed XR chest 1V rachel ble [id number] Stat Exams 09/02/20 17:45 Completed US gall bladder 7 6705 Urgent Ultrasound 09/02/20 09:04 Completed Vitals: Last Vital Signs Temp 97.9 F 09/06/20 11:22 Pulse 78 09/06/20 11:22 Resp 14 09/06/20 11:22 BP 122/86 09/06/20 11:22 Pulse Ox 99 09/06/20 11:22 Discharge Plan Discharge Patient Disposition: Home Condition: Stable Prescriptions: New ciprofloxacin HCl [Cipro] 500 mg tablet 500 mg PO BID Qty: 10 RF: 0 lactulose 10 gram/15 mL solution 15 ml PO BID Qty: 237 RF: 2 metronidazole [Flagyl] 500 mg tablet 500 mg PO Q8H 5 Days Qty: 15 RF: 0 pantoprazole [Protonix] 40 mg tablet,delayed release (DR/EC) 40 mg PO DAILY 42 Days RF: 3 Continued Samaria 180 mg Tablet 180 mg PO DAILY@08 RF: 0 Discharge Orders: Discharge Order (Routine); Ordered 09/06/20 Ordered By: Maximiliano Mirza Referrals: Alena Doss, CAREER PLACEMENT SPECIALIST, [place] [Primary Care Provider] - Maximiliano Mirza MD [Physician] - 6 Weeks Discharge Diet: Advance as tolerated Discharge Activity: Resume usual activity Discharge Attestations Time Spent in Discharge Care*: less than 30 min Quality Metrics Clinical Quality Measures During this hospital stay, did patient experience: None Coding Level of Care Code Acute Criminal Justice Social Worker for Chg Fwd Diagnoses Small bowel obstruction K56.609
[2020-09-06 15:56] VITALS: BP 133/88; PULSE 85; RESP 16; TEMP 36.7; O2SAT 97
[2020-09-06 16:03] VITALS: BP 133/88; PULSE 85; RESP 16; TEMP 36.7; O2SAT 97
== END 2020-09-06 16:03 | disposition home or self-care (01) | DRG 390 ==
LOC: ER 11:13 → MEDSURG 11:37
PROVIDERS: Admitting Provider Surgery; Emergency Provider Emergency Medicine; PCP Chiropractor Orthopedic; Visit Provider Surgery
DX: K56.50 Intestinal adhesions [bands], unspecified as to partial versus complete obstruction (principal); K59.00 Constipation, unspecified
CPT/HCPCS: 12345; 36415; 71045; 74019; 74177; 76705; 80048; 80053; 81025; 83690; 85025; 96372; 96375; 99283; J1170; J1200; J1650; J1885; J2060; J2270; J2405; J3490; J7030; Q9967

== ENCOUNTER → 2020-10-01 14:53 | Outpatient (BNVA) | payer BC, MEDICAID, SELFPAY | PROVIDERS: PCP Chiropractor Orthopedic; Referring Provider Surgery; Visit Provider Surgery | DX: Z20.828 Contact with and (suspected) exposure to other viral communicable diseases (principal); K56.609 Unspecified intestinal obstruction, unspecified as to partial versus complete obstruction | CPT/HCPCS: 87635 ==

== ENCOUNTER 2020-10-07 07:55 | Day surgery (SDC) | payer BC, MEDICAID, SELFPAY ==
[2020-10-05 13:56] VITALS: BMI 34.2
[2020-10-07 08:12] VITALS: BP 141/78; PULSE 87; RESP 16; TEMP 36.6; O2SAT 98
[2020-10-07] MEDS: sodium chloride 0.9% 1,000 ML 30 ML IV (08:29)
--- NOTE | 2020-10-07 08:36 | ANES.PREANE2 ---
Pre-Anesthetic Assessment Pre-Anesthetic Assessment: Height/Weight: Height 1.57 m Weight 84.822 kg Temp Pulse Resp BP Pulse Ox 97.8 F 87 16 141/78 98 10/07/20 08:12 10/07/20 08:12 10/07/20 08:12 10/07/20 08:12 10/07/20 08:12 Preop Diagnosis: diagnostic Proposed Procedure: Operation Date: 10/07/20 08:45 Proposed Procedures p Colonoscopy 67656 k56.609(Not Applicable) - Maximiliano Mirza MD Was Beta Barbi taken within 24 hours: N/A Last intake: Intake Last Liquid Date 10/06/20 Last Liquid Time 22:00 Last Solid Date 10/05/20 Last Solid Time 22:00 Social: Social History: Tobacco and No alcohol Exam: Pre-Anes Outpt Exam: alert, oriented x 3, clear to auscultation bilaterally and regular rate & rhythm Airway: Submandibular: WNL Cervical ROM: WNL MP: 2 Dentition: False GI: GI: GERD Metabolic: Metabolic: Morbid obesity Anesthetic Plan: ASA status: 2 Anesthesia: MAC Risk of > 500 ml blood loss (7ml/kg in children): No Meds/Allergies Current Medications: Current Medications Generic Name Dose Route Start Last Admin Trade Name Freq PRN Reason Stop Dose Admin Sodium Chloride 1,000 mls @ 30 ml s/hr 10/07/20 08:15 10/07/20 08:29 Sodium Chloride 0.9% IV 10/08/20 08:14 30 mls/hr .Q24H ABELARDO Administration PFSH Anesthesia PFSH: Medical History (Updated 09/30/20 @ 15:12 by Maximiliano Mirza MD) Small bowel obstruction Surgical History (Updated 09/30/20 @ 15:12 by Maximiliano Mirza MD) H/O oophorectomy History of delivery History of hip replacement, total x 3 Family History Grandmother Cancer lung Other Diabetes Denies family history of CAD (coronary artery disease) Anesthesia complication Bleeding disorder Social History Smoking and tobacco status: current every day smoker Alcohol intake: current Alcohol intake frequency: few times a week Alcohol type: hard liquor Household members: children Marital status: Single Current occupational status: employed History of recent travel: No Female Reproductive History: Date of last menstrual period: 07/17/20 Data Anesthesia Cardiac Studies: No Data to Display
--- NOTE | 2020-10-07 09:10 | W.PM.OPSUD ---
Surgery/Procedure H&P Update DATE OF PROCEDURE: October 07, 2020 DATE H&P PERFORMED: 09/28/20 H&P UPDATE INFORMATION: I have reviewed H&P completed within last 30 days, I have examined patient prior to procedure and No changes to prior documentation PREOP DIAGNOSIS: diagnostic PLANNED PROCEDURE: Operation Date: 10/07/20 08:45 Proposed Procedures p Colonoscopy 51709 k56.609(Not Applicable) - Maximiliano Mirza MD
[2020-10-07 09:43] VITALS: BP 111/64; PULSE 85; RESP 16; TEMP 36.2; O2SAT 98
--- NOTE | 2020-10-07 09:47 | ANE.PACU2 ---
Inpatient post-anesthesia follow up: Vital signs: Temperature 97.8 F Pulse Rate 87 Respiratory Rate 16 Blood Pressure 141/78 Pulse Oximetry 98 Oxygen Delivery Me thod Room Air Oxygen Flow Rate Fraction of Inspir ed Oxygen
[2020-10-07 10:03] VITALS: BP 123/77; PULSE 81; RESP 22; O2SAT 100
--- NOTE | 2020-10-07 10:29 | ANE.PACU2 ---
Inpatient post-anesthesia follow up: Airway intact: Yes Vital signs: Temperature 97.2 F Pulse Rate 81 Respiratory Rate 22 Blood Pressure 123/77 Pulse Oximetry 100 Oxygen Delivery Me thod Room Air Oxygen Flow Rate Fraction of Inspir ed Oxygen Hydration adequate: Yes Nausea and vomiting: No Pain level: 1 Mental status: Baseline
== END 2020-10-07 10:16 | disposition home or self-care (01) ==
PROVIDERS: Anesthesiology; PCP Chiropractor Orthopedic; Visit Provider Surgery
PROC: 0DJD8ZZ Inspection of Lower Intestinal Tract, Via Natural or Artificial Opening Endoscopic (ICD-10-PCS; CPT 45378; principal; 2020-10-07 08:45)
DX: K57.30 Diverticulosis of large intestine without perforation or abscess without bleeding (principal); F17.210 Nicotine dependence, cigarettes, uncomplicated; K21.9 Gastro-esophageal reflux disease without esophagitis; E66.01 Morbid (severe) obesity due to excess calories; Z68.34 Body mass index [BMI] 34.0-34.9, adult
CPT/HCPCS: 12345; 36415; 45380; 84702; 88305; J2405; J2704; J7030

== ENCOUNTER 2020-10-11 07:53 | Outpatient (CLI) | payer BC, MEDICAID, SELFPAY ==
--- NOTE | 2020-10-11 08:30 | FL_ITS ---
WS: [id number] DOUBLE CONTRAST UPPER GI EXAMINATION HISTORY: K56.609 - Unspecified intestinal obstruction, unspecified as to partial versus complete obst ruction COMPARISON: None available. FLUOROSCOPY TIME: 1.5 minutes. Integrated Circuit Layout Designer film reveals normal distribution of gas throughout the GI tract. No suspicious masses or calcif ications. Barium mixture traversed normally throughout the esophagus. No filling defects within the stomach. Du odenal bulb was normally distensible and pliable. No gastroesophageal reflux Very small reducible hiatal hernia was demonstrated during the examination. FL/FL upper GI w air* [id number] IMPRESSION: 1. Small reducible hiatal hernia. 2. Otherwise negative.
== END 2020-10-11 07:54 | disposition home or self-care (01) ==
LOC: RAD 07:56
PROVIDERS: PCP Chiropractor Orthopedic; Visit Provider Surgery
DX: K56.609 Unspecified intestinal obstruction, unspecified as to partial versus complete obstruction (principal); K44.9 Diaphragmatic hernia without obstruction or gangrene
CPT/HCPCS: 74246

== ENCOUNTER 2020-10-18 09:03 | Outpatient (CLI) | payer BC, MEDICAID, SELFPAY ==
--- NOTE | 2020-10-18 09:30 | US_ITS ---
WS: [id number] ULTRASOUND PELVIS TECHNIQUE: Transabdominal and transvaginal. ULTRASOUND PELVIS TECHNIQUE: Transabdominal. CLINICAL INFORMATION: N83.9 - Noninflammatory disorder of ovary, fallopian tube and broad ligament, u nspecified : No. COMPARISON: None. FINDINGS: Uterus Orientation: Anteverted. Size: 6.6,7.9 cm x 4.9 cm x 3.7 cm. Masses: None. Cervix: 3.4 cm. Incidental nabothian cysts. Endometrium: History of endometrial ablation Endometrium thickness: 0.4 cm. Adnexa: Left ovary removed. Simple right ovarian cyst measuring 1.2 x 0.8 x 1.0 cm Right ovary size: 3.0 cm x 2.5 cm x 2.7 cm. Right ovary volume: 10.6 ccm3. Free fluid: None. Other findings: None. US/US pelvic with transvaginal IMPRESSION: 1. Normal uterus and endometrium. History of endometrial ablation. Endometrium measures 4 mm. 2. Left ovary has been removed. 3. Simple right ovarian cyst measuring 1.2 cm. 4. No other significant findings.
== END 2020-10-18 09:04 | disposition home or self-care (01) ==
LOC: US 09:05
PROVIDERS: PCP Chiropractor Orthopedic; Visit Provider Surgery
DX: N83.9 Noninflammatory disorder of ovary, fallopian tube and broad ligament, unspecified (principal)
CPT/HCPCS: 76830; 76856

== ENCOUNTER → 2021-03-18 15:03 | Outpatient (BNVA) | payer BC, MEDICAID, SELFPAY | PROVIDERS: PCP Chiropractor Orthopedic; Visit Provider Family Medicine | DX: M79.671 Pain in right foot (principal); M25.571 Pain in right ankle and joints of right foot; M25.561 Pain in right knee | CPT/HCPCS: 73562; 73610; 73630 ==

== ENCOUNTER → 2021-05-13 13:49 | Outpatient (BNVA) | payer BC, MEDICAID, SELFPAY | PROVIDERS: PCP Chiropractor Orthopedic; Visit Provider Obstetrics & Gynecology | DX: R10.31 Right lower quadrant pain (principal); N94.10 Unspecified dyspareunia; N83.201 Unspecified ovarian cyst, right side | CPT/HCPCS: 76830 ==

== ENCOUNTER → 2021-05-18 11:21 | Outpatient (BNVA) | payer BC, MEDICAID, SELFPAY | PROVIDERS: PCP Chiropractor Orthopedic; Visit Provider Obstetrics & Gynecology | DX: R23.8 Other skin changes (principal); A63.0 Anogenital (venereal) warts; R10.2 Pelvic and perineal pain | CPT/HCPCS: 80053; 85025 ==

== ENCOUNTER → 2021-06-16 12:51 | Outpatient (BNVA) | payer BC, MEDICAID, SELFPAY | PROVIDERS: PCP Chiropractor Orthopedic; Visit Provider Obstetrics & Gynecology | DX: A63.0 Anogenital (venereal) warts (principal); R10.2 Pelvic and perineal pain; N93.9 Abnormal uterine and vaginal bleeding, unspecified | CPT/HCPCS: 87635 ==

== ENCOUNTER 2021-06-21 09:15 | Inpatient (IN) | payer BC, MEDICAID, SELFPAY ==
[2021-06-20 12:24] VITALS: BMI 34.2
[2021-06-21] VITALS (23 sets, daily range): BP systolic 109–143; BP diastolic 7–90; PULSE 78–109; RESP 12–29; TEMP 36.2–37.3; O2SAT 93–98; BMI 34.2
[2021-06-21] MEDS: sodium chloride 0.9% 1,000 ML 30 ML IV (06:34)
[2021-06-21] MEDS: CELEcoxib 200 mg Capsule 400 MG PO (06:44)
[2021-06-21] MEDS: gabapentin 300 mg Capsule PO (06:44)
[2021-06-21] MEDS: ketorolac 30 mg/mL INJ IVP ×3 (06:44→21:15)
[2021-06-21] MEDS: scopolamine 1.5 Patch 1 PATCH TRANSDERMA (06:44)
[2021-06-21] MEDS: acetaminophen 1,000 MG/100 ML PIGGYBACK 400 MG IV (06:44)
[2021-06-21] MEDS: phenazopyridine 100 mg Tablet 200 MG PO (06:44)
--- NOTE | 2021-06-21 06:44 | ANES.PREANE2 ---
Pre-Anesthetic Assessment Pre-Anesthetic Assessment: Height/Weight: Height 1.57 m Weight 84.822 kg Temp Pulse Resp BP Pulse Ox 97.2 F L 102 H 18 130/86 97 06/21/21 06:10 06/21/21 06:10 06/21/21 06:10 06/21/21 06:10 06/21/21 06:10 Preop Diagnosis: abnormal uterine bleeding, pelvic pain Proposed Procedure: Operation Date: 06/21/21 07:00 Proposed Procedures p Total Abdominal Hysterectomy 85626 r10.2 a63.0(Not Applicable) - Roxi Ramirez MD s Salpingo Oophorectomy (Open)(Not Applicable) - Roxi Ramirez MD Familial anesthetic complications: None Was Beta Barbi taken within 24 hours: N/A Was Clonidine taken within 24 hours: N/A Last intake: Intake Last Liquid Date 06/20/21 Last Liquid Time 19:30 Last Solid Date 06/20/21 Last Solid Time 19:30 Social: Social History: Alcohol and Tobacco Comment: 1-2 shots a day Exam: Pre-Anes Outpt Exam: alert, oriented x 3, clear to auscultation bilaterally and regular rate & rhythm Airway: Cervical ROM: WNL MP: 3 Dentition: Full Musc/skel: Comments: chronci pain - hip Anesthetic Plan: ASA status: 2 Anesthesia: General Risk of > 500 ml blood loss (7ml/kg in children): No Meds/Allergies Current Medications: Current Medications Generic Name Dose Route Start Last Admin Trade Name Freq PRN Reason Stop Dose Admin Sodium Chloride 1,000 mls @ 30 ml s/hr 06/21/21 06:00 06/21/21 06:34 Sodium Chloride 0.9% IV 06/22/21 05:59 30 mls/hr .Q24H ABELARDO Administration PFSH Anesthesia PFSH: Medical History Chronic nausea Lffe-Vfmfx-Utdqpjg disease Small bowel obstruction Surgical History H/O oophorectomy (~2006) Left History of bilateral tubal ligation (~2005) At time of section. History of delivery (~2005) 2001, 2002, and 2006. 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 Last in 2017 S/P endometrial ablation (~03/2019) Performed at [facility]. Status post colonoscopy (10/07/20) Diverticulosis Family History Grandmother Cancer lung Other Diabetes Denies family history of CAD (coronary artery disease) Anesthesia complication Bleeding disorder Social History (Updated 06/03/21 @ 07:32 by Ania Pacheco LPN) Smoking and tobacco status: current every day smoker cigarettes Packs smoked per day: 1 [ Other cigarette details: Started age 16. ] Alcohol intake: current Alcohol intake frequency: few times a week Alcohol type: hard liquor Household members: children Marital status: Single Current occupational status: employed History of recent travel: No Female Reproductive History: Date of last menstrual period: 07/17/20 Spontaneous abortions: No Data Anesthesia Cardiac Studies: No Data to Display
--- NOTE | 2021-06-21 06:55 | W.PM.OPSUD ---
Surgery/Procedure H&P Update DATE OF PROCEDURE: June 21, 2021 DATE H&P PERFORMED: 06/16/21 H&P UPDATE INFORMATION: I have reviewed H&P completed within last 30 days, I have examined patient prior to procedure and No changes to prior documentation PREOP DIAGNOSIS: abnormal uterine bleeding, pelvic pain PLANNED PROCEDURE: Operation Date: 06/21/21 07:00 Proposed Procedures p Total Abdominal Hysterectomy 34176 r10.2 a63.0(Not Applicable) - Roxi Ramirez MD s Salpingo Oophorectomy (Open)(Not Applicable) - Roxi Ramirez MD
[2021-06-21 07:10] LABS: Alanine Aminotransferase 47 U/L (0-33); Albumin Level 4.1 g/dL (3.5-5.2); Alkaline Phosphatase 64 IU/L (35-105); Anion Gap 15.3 (5-19); Aspartate Amino Transferase 76 U/L (0-32); Blood Urea Nitrogen 11 mg/dL (6-20); Carbon Dioxide 23 mmol/L (22-29); Chloride 103 mmol/L (98-107); Globulin 2.7 g/dL (1.3-4.6); Glomerular Filtration Rate 94.2 mL/min (90-130); Glucose 106 mg/dL (65-115); Osmolality Calculated 286 mOsm/kg (285-295); Potassium 3.3 mmol/L (3.5-5.1); Sodium 138 mmol/L (136-145); Total Bilirubin 0.9 mg/dL (0.15-1.2); Total Protein 6.8 g/dL (6.6-8.7)
[2021-06-21 07:53] LABS: OR HCG Qualitative Urine Negative (Negative)
[2021-06-21 07:53] LABS: Basophils % 0.4 %; Eosinophils # 0.2 10^3/uL (0.0-0.8); Eosinophils % 1.9 %; Hematocrit 36.7 % (37.0-47.0); Hemoglobin 12.4 g/dL (11.5-15.3); Lymphocytes # 1.6 10^3/uL (0.8-4.8); Lymphocytes % 17.6 %; Mean Corpuscular HGB Conc 33.8 g/dL (30.0-36.0); Mean Corpuscular Hemoglobin 36.8 pg (28.0-34.0); Mean Corpuscular Volume 108.9 fl (81-99); Mean Platelet Volume 9.2 fL (7.4-10.4); Monocytes # 0.9 10^3/uL (0.2-0.9); Monocytes % 10.3 %; Neutrophils # 6.31 10^3/uL (1.8-7.7); Neutrophils % 69.4 %; Nucleated Red Blood Cells % 0 %; Platelet Count 302 10^3/cmm (130-400); Red Blood Count 3.37 10^6/uL (4.1-5.3); Red Cell Distribution Width 14.4 % (12.1-15.1); White Blood Count 9.1 10^3/uL (4.0-10.0)
--- NOTE | 2021-06-21 09:28 | PM.OP ---
Operative Report Date of procedure: June 21, 2021 Pre-op Diagnosis: abnormal uterine bleeding, pelvic pain Post-op diagnosis: same Post-op Findings: Small uterus, normal appearing fallopian tubes and right ovary Procedure Done: total abdominal hysterectomy with bilateral salpingectomy and right oophorectomy. Left ovary previously removed Specimens removed/disposition: uterus, fallopian tubes and right ovary to pathology Surgeon: Roxi Ramirez Anesthesia: General Estimated blood loss (mL): 50 IV fluids (mL): 1,000 Urine output (mL): 50 Complications: none Condition: stable Disposition: floor Brief History: The patient presented for abnormal uterine bleeding and pelvic pain. Procedure: The patient was taken to the operating room where general anesthesia was administered and found to be adequate. She was prepped and draped in the normal sterile fashion in the dorsal supine position. A romano catheter was placed. A Pfannenstiel skin incision was made and carried down to the underlying layer of fascia. The previous scars were removed. The fascia was nicked in the midline and extended laterally with the Jacobo scissors. The fascia was then tented up and the rectus muscles dissected off sharply. The rectus muscles were in the midline and the abdomen entered bluntly with the digit. This peritoneal incision was extended superiorly and inferiorly with good visualization of the bladder. The O'Jordi-O'Mclean retractor was placed and the bowel packed away. There was adhesions of the omentum to the left pelvic sidewall. The round ligament was suture-ligated and opened. This was performed bilaterally. A window was made medial to the infundibulopelvic ligament and inferior to the fallopian tube and ovary. The infundibulopelvic ligament was clamped cut and suture-ligated bilaterally. There was no left ovary as it had been previously removed. The bladder flap was created sharply with the metzenbaum scissors and the bladder reflected caudally. The uterine arteries were then clamped cut and suture-ligated. The cardinal ligaments were cauterized down to the angle of the vagina. The vaginal cuff was clamped and cut and the specimen was removed. The vaginal cuff was closed with 0 Vicryl incorporating the uterosacral ligaments into the lateral aspects of the vaginal cuff. There was excellent hemostasis. The O'Jordi-O'Mclean retractor as well as the packing was removed. The peritoneum was closed with 3-0 Monocryl in a running fashion. The fascia was closed with 0 Vicryl in a running fashion with 2 separate sutures overlapping in the midline. The skin was closed with absorbable rashi. The patient tolerated the procedure well. Sponge lap and needle counts were correct x2. She was taken to the recovery room in stable condition.
[2021-06-21] MEDS: HYDROmorphone 1 mg/mL INJ 1 mL 0.5 MG IVP ×3 (09:38→10:01)
[2021-06-21] MEDS: HYDROcodone-acetaminophen 5-325 mg Tablet PO (15:44)
--- NOTE | 2021-06-21 18:53 | PC.NURSE ---
BLADDER SCAN DONE AFTER PATIENT VOIDED 300MLS AND NO RESIDUAL SEEN. THIS TRAIN DIRECTOR TALKED WITH DR. BRAGG AND SHE IS GOOD WITH NO MORE SCANS. ALSO TOLD NOT TO REMOVED THE WHITE TAPE LIKE DRESSING THAT IS COVERING THE INCISION, MAY REMOVE FOAM TAPE AND ABD DRESSING BUT NOT THE ONE THAT IS COVERING THE INCISION. THIS TRAIN DIRECTOR WILL SHOW NEXT SHIFT WHAT WE ARE TALKING ABOUT.
[2021-06-21] MEDS: docusate sodium 100 mg Capsule PO (21:15)
[2021-06-21] MEDS: nicotine 14 mg Patch 1 PATCH TRANSDERMA (21:16)
[2021-06-22] MEDS: HYDROcodone-acetaminophen 5-325 mg Tablet PO ×3 (02:16→20:25)
[2021-06-22 04:50] VITALS: BP 108/63; PULSE 75; TEMP 36.8; O2SAT 97
[2021-06-22 06:18] LABS: Hematocrit 33.6 % (37.0-47.0); Mean Corpuscular HGB Conc 32.7 g/dL (30.0-36.0); Mean Corpuscular Hemoglobin 37.3 pg (28.0-34.0); Mean Corpuscular Volume 113.9 fl (81-99); Mean Platelet Volume 9.5 fL (7.4-10.4); Platelet Count 265 10^3/cmm (130-400); Red Blood Count 2.95 10^6/uL (4.1-5.3); Red Cell Distribution Width 14.6 % (12.1-15.1); White Blood Count 11.8 10^3/uL (4.0-10.0)
--- NOTE | 2021-06-22 06:35 | P.PN_ITS ---
Subjective Subjective: Interval history: The patient has passed gas last night. She is doing well this morning. A nicotine patch was placed. Her pain is well controlled. She is ambulating and reports no vaginal bleeding. Medications: Reviewed: Yes Vitals/I&O/Wt Last Vital Signs Temp 98.2 F 06/22/21 04:50 Pulse 75 06/22/21 04:50 Resp 16 06/21/21 22:00 BP 108/63 06/22/21 04:50 Pulse Ox 97 06/22/21 04:50 06/21/21 06/21/21 06/22/21 14:59 22:59 06:59 Intake Total 150 / 150 2060 / 2210 Output Total 150 / 150 1450 / 1600 700 / 2300 Balance 0 / 0 610 / 610 -700 / -90 Weight last 48 hrs Weight 187 lb Weight 187 lb Physical Exam Narrative: EXAM NARRATIVE: The patient has no concerns this morning Const: COMMON NORMALS: no acute distress, patient oriented x3, no limitations, healthy appearing, alert and well nourished GENERAL APPEARANCE: cooperative, comfortable, well kempt and well developed ORIENTATION/CONSCIOUSNESS: Yes awake, Yes oriented to person, Yes oriented to place and Yes oriented to time Resp: COMMON NORMALS: normal respiratory effort EFFORT & INSPECTION: Yes able to speak in complete sentences GI: COMMON NORMALS: Soft to palpation and non-tender PALPATION: Yes Soft to palpation Extremity: COMMON NORMALS: no clubbing, cyanosis or edema and no calf tenderness Neuro: COMMON NORMALS: patient oriented x3 SENSORIUM/ORIENTATION: Yes alert, Yes oriented to person, Yes oriented to place and Yes oriented to time Psych: COMMON NORMALS: mental status grossly normal, Normal thought process present, cooperative, normal affect and speech normal APPEARANCE: Yes grossly normal and Yes well kempt ATTITUDE: Yes calm and Yes engaged ACTIVITY/MOTOR BEHAVIOR: Yes appropriate eye contact SPEECH: Yes normal speech THOUGHT PROCESS: Normal thought process present Urinary Catheter Management^: [place]: Cath Placed During This Visit: yes, but has since been removed by the nurse Reason for Continuing Indwelling Catheter: Other Urinary Catheter Date of Insertion: 06/21/21 Urinary Catheter Time of Insertion: 07:30 Date Urinary Catheter Removed: 06/21/21 Time Urinary Catheter Discontinued: 16:05 Data : 06/22/21 05:04 06/21/21 06:30 Attestations Medical Necessity Statement*: The patient had abdominal hysterectomy. She will be here for 2 days. Coding Level of Care Code Acute Cardiac Care Unit Nurse for Leidy Agosto
[2021-06-22] MEDS: ibuprofen 800 mg tablet PO ×2 (09:27→17:09)
[2021-06-22] MEDS: docusate sodium 100 mg Capsule PO ×2 (09:27→17:09)
[2021-06-22 11:00] VITALS: BP 132/81; PULSE 80; RESP 17; TEMP 37.2
--- NOTE | 2021-06-22 16:02 | PC.RESP ---
sent smoking cessation information
[2021-06-22 16:08] VITALS: BP 138/79; PULSE 82; RESP 14; TEMP 36.8
[2021-06-22 22:58] VITALS: BP 105/71; PULSE 76; RESP 18; TEMP 37; O2SAT 97
[2021-06-22] MEDS: nicotine 14 mg Patch 1 PATCH TRANSDERMA (23:11)
[2021-06-23 04:00] VITALS: BP 113/74; PULSE 67; RESP 16; TEMP 36.7
--- NOTE | 2021-06-23 08:27 | P.DS_ITS ---
Discharge Providers Date of Admission: 06/21/21 09:15 Date of Discharge: June 23, 2021 Attending Provider at Admission: Roxi Ramirez MD Attending Provider at Discharge: Roxi Ramirez MD Primary Care Provider: Alena Doss Diagnoses at Discharge Discharge Diagnosis (1) Postoperative state: Status: Acute Reason for Visit Reason for Visit: pelvic pain Hospital Course Hospital Course The patient was admitted for surgery. She did well postoperatively and was ready for discharge on day #2. Physical Exam Narrative: EXAM NARRATIVE: The patient is doing well this morning. No concerns. Const: COMMON NORMALS: no acute distress, patient oriented x3, healthy appear ing, alert and well nourished GENERAL APPEARANCE: cooperative, comfortable, well kempt and well developed ORIENTATION/CONSCIOUSNESS: Yes awake, Yes oriented to person, Yes oriented to place and Yes oriented to time Resp: COMMON NORMALS: normal respiratory effort EFFORT & INSPECTION: Yes able to speak in complete sentences GI: COMMON NORMALS: Soft to palpation and non-tender PALPATION: Yes Soft to palpation Extremity: COMMON NORMALS: no clubbing, cyanosis or edema and no calf tenderness Neuro: COMMON NORMALS: patient oriented x3 SENSORIUM/ORIENTATION: Yes alert, Yes oriented to person, Yes oriented to place and Yes oriented to time Psych: APPEARANCE: Yes well kempt Skin: WOUNDS: Yes surgical site (clean/dry/covered) Urinary Catheter Management^: [place]: Cath Placed During This Visit: yes, but has since been removed by the nurse Reason for Continuing Indwelling Catheter: Other Urinary Catheter Date of Insertion: 06/21/21 Urinary Catheter Time of Insertion: 07:30 Date Urinary Catheter Removed: 06/21/21 Time Urinary Catheter Discontinued: 16:05 Discharge Data Data Completed and Pending: Completed Studies During Hospitalization Category Date Time Status Pathology: Surgic al [PTH] Routine Pth 06/21/21 09:18 Completed Pending at discharge Category Date Time Status Antibody Identifi cation Routine Lab 06/21/21 06:30 Results Antigen Typing Pa tient Routine Lab 06/21/21 06:30 Results Leukocyte Reduced RBC Routine Lab 06/21/21 06:30 Results Type and Screen R outine Lab 06/21/21 06:30 Results Urine Culture [place] Lab 06/21/21 07:40 Results Vitals: Last Vital Signs Temp 98.1 F 06/23/21 04:00 Pulse 67 06/23/21 04:00 Resp 16 06/23/21 04:00 BP 113/74 06/23/21 04:00 Pulse Ox 97 06/22/21 22:58 Discharge Plan Discharge Patient Disposition: Home Condition: Stable Prescriptions: New hydrocodone-acetaminophen 5-325 mg Tablet 1 tab PO Q4H PRN (Reason: Moderate To Severe Pain) Qty: 30 RF: 0 Continued tramadol 50 mg tablet 50 mg PO BID PRN (Reason: Pain) RF: 0 calcium carbonate [Tums] 200 mg calcium (500 mg) tablet,chewable 200 mg PO BID PRN (Reason: Heartburn) RF: 0 naproxen 250 mg tablet 250 mg PO BID PRN (Reason: Pain) RF: 0 ibuprofen [Advil] 200 mg tablet 200 mg PO DAILY PRN (Reason: Pain) RF: 0 Discharge Orders: Discharge Order (Routine); Ordered 06/23/21 Ordered By: Roxi Ramirez Referrals: Roxi Ramirez MD [Physician] - 06/27/21 10:30 am Patient Instructions: Abdominal Hysterectomy (DC), OB Abdominal Surgery - [facility], OB Discharge Report, OB Food/Drug Interaction Guide, Opioid Safety Discharge Attestations Time Spent in Discharge Care*: less than 30 min Quality Metrics Clinical Quality Measures During this hospital stay, did patient experience: None Coding Level of Care Code Acute Chg FW DC note Diagnoses Postoperative state Z98.890
[2021-06-23] MEDS: ibuprofen 800 mg tablet PO (08:51)
[2021-06-23] MEDS: docusate sodium 100 mg Capsule PO (08:51)
[2021-06-23] MEDS: HYDROcodone-acetaminophen 5-325 mg Tablet PO (11:26)
[2021-06-23 11:45] VITALS: BP 129/73; PULSE 82; RESP 16; TEMP 36.8; O2SAT 98
== END 2021-06-23 11:45 | disposition home or self-care (01) | DRG 743 ==
LOC: OBGYN 06-22 11:11
PROVIDERS: Admitting Provider Obstetrics & Gynecology; PCP Chiropractor Orthopedic; Visit Provider Obstetrics & Gynecology
PROC: 0UT90ZZ Resection of Uterus, Open Approach (ICD-10-PCS; CPT 58150; principal; 2021-06-21 07:00)
PROC: 0UT90ZZ Resection of Uterus, Open Approach (ICD-10-PCS; CPT 58720; 2021-06-21 07:00)
DX: N93.9 Abnormal uterine and vaginal bleeding, unspecified (principal); R10.2 Pelvic and perineal pain; M91.10 Juvenile osteochondrosis of head of femur [Legg-Calve-Perthes], unspecified leg; Z96.649 Presence of unspecified artificial hip joint; F17.210 Nicotine dependence, cigarettes, uncomplicated
CPT/HCPCS: 36415; 80053; 80500; 84703; 85025; 85027; 86850; 86870; 86900; 86902; 86920; 87086; 88307; 96365; 96374; J0690; J1100; J1170; J1885; J2405; J2704; J2710; J3010; J3490; J7030

== ENCOUNTER 2021-06-24 12:59 | Emergency (ER) | payer BC, MEDICAID, SELFPAY ==
[2021-06-24 13:09] VITALS: BP 132/71; PULSE 90; RESP 18; TEMP 36.9; O2SAT 96; BMI 35.9
--- NOTE | 2021-06-24 14:47 | W.ED.WOUNDLC ---
Documented by User: Melissa San PA-C 06/24/21 15:48 HPI - Wound/Laceration General: Chief Complaint: Wound/Laceration Stated Complaint: HYSTERECTOMY YESTERDAY:INCISION BLEEDING TODAY Time Seen by Provider: 06/24/21 14:41 Source: patient Mode of arrival: ambulatory Limitations: no limitations History of Present Illness: HPI narrative: 36-year-old female presents to the ER today for worsening drainage from her hysterectomy incision. Patient had a total hysterectomy on Sunday by Dr. Ramirez. Patient was released from the hospital yesterday and was doing well. She was told she could go home and shower which she did this morning quickly and when she got out of the shower she felt a gush and has since had continued drainage from under the bandage. Patient reports she has changed the pad on the outside twice at this point. She reports some achy tenderness but no significant pain at this time. The drainage is red/clear. There is no michael blood reported. Patient denies any fever or chills at this time. Patient denies headache, chest pain, shortness of breath, nausea, vomiting, diarrhea, constipation. Onset (ago): hour(s) (4) Associated symptoms: Denies chills, fever(s), nausea or vomiting Review of Systems Const: Denies: fever(s), chills or body aches ENMT: Denies: throat pain, nasal discharge or nasal congestion Card: Denies: chest pain or palpitations Resp: Denies: dyspnea or wheezing GI: Denies: abdominal pain, nausea, vomiting, diarrhea or constipation Musc: Denies: back pain or extremity pain Skin/Breast: Reports: other (Red/clear drainage from hysterectomy incision site); Denies: rash Neuro: Denies: headache(s) [facility] PFSH: Medical History Chronic nausea Mbzm-Reutm-Ycrlolc disease Small bowel obstruction Surgical History H/O oophorectomy (~2006) Left History of bilateral tubal ligation (~2005) At time of section. History of delivery (~2005) 2001, 2002, and 2005. 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 Last in 2017 S/P endometrial ablation (~03/2019) Performed at [facility]. Status post colonoscopy (10/07/20) Diverticulosis Family History Grandmother Cancer lung Other Diabetes Denies family history of CAD (coronary artery disease) Anesthesia complication Bleeding disorder Social History Smoking and tobacco status: current every day smoker cigarettes Packs smoked per day: 1 [ Other cigarette details: Started age 16. ] Alcohol intake: current Alcohol intake frequency: few times a week Alcohol type: hard liquor Household members: children Marital status: Single Current occupational status: employed History of recent travel: No Female Reproductive History: Date of last menstrual period: 07/17/20 Spontaneous abortions: No Physical Exam Const: COMMON NORMALS: no acute distress, patient oriented x3 and healthy appearing GENERAL APPEARANCE: cooperative and comfortable HENMT: COMMON NORMALS: normocephalic HEAD & SCALP: normocephalic Eye: COMMON NORMALS: conjunctivae normal CONJUNCTIVA: Yes conjunctivae normal Neck/C-Spine: COMMON NORMALS: no lymphadenopathy Resp: COMMON NORMALS: normal respiratory effort, No retractions and clear to auscultation bilaterally AUSCULTATION: clear to auscultation bilaterally, no rales, no rhonchi and no wheezes Cardio: COMMON NORMALS: regular rate, regular rhythm and No murmurs present (Cardio) RATE: regular rate RHYTHM: regular rhythm GI: COMMON NORMALS: Soft to palpation PALPATION: Yes Soft to palpation OTHER: Patient is nontender other than over area of recent surgery in the lower abdomen. There is noted to be a serous drainage coming from beneath the silver bandage covering the incision site. There is no michael blood noted. The incision itself is not overly tender. No swelling is noted. No erythema noted surrounding the bandage. : COMMON NORMALS: Yes no CVA tenderness BLADDER/KIDNEY EXAM: Yes no CVA tenderness Back/Pelvis: COMMON NORMALS: no CVA tenderness and thoracic and lumbar spine normal to inspection Extremity: COMMON NORMALS: normal to inspection and full ROM Neuro: COMMON NORMALS: patient oriented x3 Psych: COMMON NORMALS: mental status grossly normal and Normal thought process present APPEARANCE: Yes grossly normal THOUGHT PROCESS: Normal thought process present Skin: OTHER: see abdominal exam Course ED course: Patient presents to the ER today for drainage from a recent incision site. Patient had a hysterectomy on Sunday and was released from the hospital yesterday. She was showering today when she noticed a gush of fluid and has had continued drainage from beneath the bandage. Patient denies any increased pain. Denies any fever or chills. Dr. Newman also saw this patient and agreed, this is likely a seroma. We will get a CBC to rule out systemic infection and contact Dr. Ramirez office. Consultations: Consultation #1: I spoke with Dr. Baez regarding pts wound draining. She felt like if pt has an appt on Sunday that she can keep that and follow up unless something changes and pt starts having increased pain, fever, or redness. Time: 15:45 Vital Signs: Vital signs: Vital Signs Temperature 98.5 F 06/24/21 13:09 Pulse Rate 82 06/24/21 15:29 Respiratory Rate 18 06/24/21 15:29 Blood Pressure 137/79 06/24/21 15:29 Pulse Oximetry 98 06/24/21 15:29 MDM - Wound/Laceration Lab Data: Attestation: I reviewed the patient's lab results. Lab results narrative: Stable/improved from discharge Labs: Lab Results 06/24/21 15:09 WBC 11.2 10^3/uL H 10 ^3/uL (4.0-10.0) RBC 3.04 10^6/uL L 10 ^6/uL (4.1-5.3) Hgb 11.4 g/dL L g/dL (11.5-15.3) Hct 34.7 % L % (37.0-47.0) MCV 114.1 fl H fl (81-99) MCH 37.5 pg H pg (28.0-34.0) MCHC 32.9 g/dL g/dL (30.0-36.0) RDW 14.7 % % (12.1-15.1) Plt Count 288 10^3/cmm 10^3 /cmm (130-400) MPV 9.5 fL fL (7.4-10.4) Neut % (Auto) 68.9 % % Lymph % (Auto) 18.5 % % Upton % (Auto) 9.0 % % Eos % (Auto) 2.1 % % Baso % (Auto) 0.6 % % Neut # (Auto) 7.69 10^3/uL 10^3 /uL (1.8-7.7) Lymph # (Auto) 2.1 10^3/uL 10^3/ uL (0.8-4.8) Upton # (Auto) 1.0 10^3/uL H 10^ 3/uL (0.2-0.9) Eos # (Auto) 0.2 10^3/uL 10^3/ uL (0.0-0.8) Baso # (Auto) 0.1 10^3/uL 10^3/ uL (0.0-0.1) Nucleated RBC % (a uto) 0 % % Nucleated RBCs # 0.0 /100WBC /100W BC Critical Care Time Critical Care Time: Critical Care Time: No Discharge Plan Discharge Patient Disposition: Home Clinical Impression: Seroma after procedure Condition: Stable Prescriptions: No Action tramadol 50 mg tablet 50 mg PO BID PRN (Reason: Pain) RF: 0 calcium carbonate [Tums] 200 mg calcium (500 mg) tablet,chewable 200 mg PO BID PRN (Reason: Heartburn) RF: 0 naproxen 250 mg tablet 250 mg PO BID PRN (Reason: Pain) RF: 0 ibuprofen [Advil] 200 mg tablet 200 mg PO DAILY PRN (Reason: Pain) RF: 0 hydrocodone-acetaminophen 5-325 mg Tablet 1 tab PO Q4H PRN (Reason: Moderate To Severe Pain) Qty: 30 RF: 0 Discharge Orders: Discharge ED (Routine); Ordered 06/24/21 Ordered By: Melissa San Referrals: Roxi Ramirez MD [Primary Care Provider] - Discharge Diet: Usual diet Discharge Activity: Limit activity as instructed Patient Instructions: Seroma (DC), Opioid Safety Activity Restrictions/Additional Instructions: Continue home medications as prescribed. Continue home care as recommended by [employer]. Follow-up Sunday at already scheduled appointment. Return to the ER with any new or worsening symptoms including fever, nausea, vomiting, redness. Coding Level of Care Code ED New Client Banking Services Clerk for Chg Fwd Exam Comprehensive Documented by User: Aniket Newman DO 06/27/21 06:53 HPI - Wound/Laceration General: Chief Complaint: Wound/Laceration Stated Complaint: HYSTERECTOMY YESTERDAY:INCISION BLEEDING TODAY Time Seen by Provider: 06/24/21 14:41 History of Present Illness: HPI narrative: 36-year-old female who recently had a hysterectomy. Reviewed history of present illness with the patient and with DANY Ayoub. Onset (ago): hour(s) Location: abdomen Associated symptoms: Denies chills, fever(s), nausea, numbness, pain or vomiting Treatments prior to arrival: bandage Review of Systems Const: Denies: fever(s) or chills ENMT: Denies: throat pain, ear or mastoid pain, nasal discharge or nasal congestion Card: Denies: chest pain, edema, dyspnea on exertion or orthopnea Resp: Denies: dyspnea, productive cough or non-productive cough GI: Denies: nausea or vomiting : Denies: flank pain, difficulty voiding, dysuria, urinary frequency or urinary urgency Skin/Breast: Denies: rash or pruritus PFSH ED PFSH: Medical History Chronic nausea Dcau-Xyqpf-Diwmkzt disease Small bowel obstruction Surgical History H/O oophorectomy (~2006) Left History of bilateral tubal ligation (~2005) At time of section. History of delivery (~2005) 2001, 2002, and 2005. 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 Last in 2017 S/P endometrial ablation (~03/2019) Performed at [facility]. Status post colonoscopy (10/07/20) Diverticulosis Family History Grandmother Cancer lung Other Diabetes Denies family history of CAD (coronary artery disease) Anesthesia complication Bleeding disorder Social History (Reviewed 06/27/21 @ 06:52 by TAMRA Calles Smoking and tobacco status: current every day smoker cigarettes Packs smoked per day: 1 [ Other cigarette details: Started age 16. ] Alcohol intake: current Alcohol intake frequency: few times a week Alcohol type: hard liquor Household members: children Marital status: Single Current occupational status: employed History of recent travel: No Physical Exam Const: COMMON NORMALS: no acute distress GENERAL APPEARANCE: cooperative and comfortable ORIENTATION/CONSCIOUSNESS: Yes awake, Yes oriented to person, Yes oriented to place and Yes oriented to time HENMT: COMMON NORMALS: normocephalic, atraumatic and hearing grossly normal bilaterally HEAD & SCALP: normocephalic and atraumatic Neck/C-Spine: COMMON NORMALS: no JVD Resp: COMMON NORMALS: normal respiratory effort, No retractions, No use of accessory muscles and clear to auscultation bilaterally AUSCULTATION: clear to auscultation bilaterally Cardio: COMMON NORMALS: no JVD, regular rate, regular rhythm and No murmurs present (Cardio) RATE: regular rate RHYTHM: regular rhythm GI: COMMON NORMALS: Soft to palpation and No hepatosplenomegaly present AUSCULTATION: Yes normoactive bowel sounds PALPATION: Yes Soft to palpation, No Tenderness to palpation present (GI), No Guarding due to palpation present (GI) and Yes No hepatosplenomegaly present OTHER: Suprapubic Pfannenstiel incision noted with drainage. There is bandage in place was not removed there is no redness no erythema no pain and express small amounts of serous fluid with palpation which is also painless. Extremity: COMMON NORMALS: normal to inspection, capillary refill normal, no clubbing, cyanosis or edema, no calf tenderness and no pedal edema Neuro: SENSORIUM/ORIENTATION: Yes oriented to person, Yes oriented to place and Yes oriented to time Skin: COMMON NORMALS: no rashes or lesions noted GENERAL SKIN EXAM: no rashes or lesions noted Course Vital Signs: Vital signs: Vital Signs Temperature 98.5 F 06/24/21 13:09 Pulse Rate 82 06/24/21 15:29 Respiratory Rate 18 06/24/21 15:29 Blood Pressure 137/79 06/24/21 15:29 Pulse Oximetry 98 06/24/21 15:29 MDM - Wound/Laceration MDM Narrative: Medical decision making narrative: Patient seen and evaluated. Discussed with DANY Ayoub. Agree with assessment and plan. On exam patient appears to have a simple seroma that has begun draining no further intervention needed at this time if has any worsening change symptoms or develops fever return to emergency room immediately otherwise follow-up with gynecology early next week. Lab Data: Labs: Lab Results 06/24/21 15:09 WBC 11.2 10^3/uL H 10 ^3/uL (4.0-10.0) RBC 3.04 10^6/uL L 10 ^6/uL (4.1-5.3) Hgb 11.4 g/dL L g/dL (11.5-15.3) Hct 34.7 % L % (37.0-47.0) MCV 114.1 fl H fl (81-99) MCH 37.5 pg H pg (28.0-34.0) MCHC 32.9 g/dL g/dL (30.0-36.0) RDW 14.7 % % (12.1-15.1) Plt Count 288 10^3/cmm 10^3 /cmm (130-400) MPV 9.5 fL fL (7.4-10.4) Neut % (Auto) 68.9 % % Lymph % (Auto) 18.5 % % Upton % (Auto) 9.0 % % Eos % (Auto) 2.1 % % Baso % (Auto) 0.6 % % Neut # (Auto) 7.69 10^3/uL 10^3 /uL (1.8-7.7) Lymph # (Auto) 2.1 10^3/uL 10^3/ uL (0.8-4.8) Upton # (Auto) 1.0 10^3/uL H 10^ 3/uL (0.2-0.9) Eos # (Auto) 0.2 10^3/uL 10^3/ uL (0.0-0.8) Baso # (Auto) 0.1 10^3/uL 10^3/ uL (0.0-0.1) Nucleated RBC % (a uto) 0 % % Nucleated RBCs # 0.0 /100WBC /100W BC Discharge Plan Discharge Patient Disposition: Home Clinical Impression: Seroma after procedure Condition: Stable Prescriptions: No Action tramadol 50 mg tablet 50 mg PO BID PRN (Reason: Pain) RF: 0 calcium carbonate [Tums] 200 mg calcium (500 mg) tablet,chewable 200 mg PO BID PRN (Reason: Heartburn) RF: 0 naproxen 250 mg tablet 250 mg PO BID PRN (Reason: Pain) RF: 0 ibuprofen [Advil] 200 mg tablet 200 mg PO DAILY PRN (Reason: Pain) RF: 0 hydrocodone-acetaminophen 5-325 mg Tablet 1 tab PO Q4H PRN (Reason: Moderate To Severe Pain) Qty: 30 RF: 0 Discharge Orders: Discharge ED (Routine); Ordered 06/24/21 Ordered By: Melissa San Referrals: Roxi Ramirez MD [Primary Care Provider] - Discharge Diet: Usual diet Discharge Activity: Limit activity as instructed Patient Instructions: Seroma (DC), Opioid Safety Activity Restrictions/Additional Instructions: Continue home medications as prescribed. Continue home care as recommended by [employer]. Follow-up Sunday at already scheduled appointment. Return to the ER with any new or worsening symptoms including fever, nausea, vomiting, redness. Coding Level of Care Code ED New Client Banking Services Clerk for Leidy Fwd Exam Comprehensive
[2021-06-24 15:14] VITALS: BP 150/80; PULSE 87; RESP 18; O2SAT 96
[2021-06-24 15:20] LABS: Basophils # 0.1 10^3/uL (0.0-0.1); Basophils % 0.6 %; Eosinophils # 0.2 10^3/uL (0.0-0.8); Eosinophils % 2.1 %; Hematocrit 34.7 % (37.0-47.0); Hemoglobin 11.4 g/dL (11.5-15.3); Lymphocytes # 2.1 10^3/uL (0.8-4.8); Lymphocytes % 18.5 %; Mean Corpuscular HGB Conc 32.9 g/dL (30.0-36.0); Mean Corpuscular Hemoglobin 37.5 pg (28.0-34.0); Mean Corpuscular Volume 114.1 fl (81-99); Mean Platelet Volume 9.5 fL (7.4-10.4); Neutrophils # 7.69 10^3/uL (1.8-7.7); Neutrophils % 68.9 %; Nucleated Red Blood Cells % 0 %; Platelet Count 288 10^3/cmm (130-400); Red Blood Count 3.04 10^6/uL (4.1-5.3); Red Cell Distribution Width 14.7 % (12.1-15.1); White Blood Count 11.2 10^3/uL (4.0-10.0)
[2021-06-24 15:29] VITALS: BP 137/79; PULSE 82; RESP 18; O2SAT 98
== END 2021-06-24 16:05 | disposition home or self-care (01) ==
PROVIDERS: Emergency Provider Physician Assistant; PCP Obstetrics & Gynecology
DX: N99.843 Postprocedural seroma of a genitourinary system organ or structure following other procedure (principal); F17.210 Nicotine dependence, cigarettes, uncomplicated
CPT/HCPCS: 85025; 99283

== ENCOUNTER → 2021-08-16 08:07 | Outpatient (BNVA) | payer BC, MEDICAID, SELFPAY | PROVIDERS: PCP Obstetrics & Gynecology; Visit Provider Nurse Practitioner | DX: Z20.822 Contact with and (suspected) exposure to COVID-19 (principal) | CPT/HCPCS: 87635 ==

== ENCOUNTER 2022-02-01 05:41 | Inpatient (IN) | payer BC, SELFPAY ==
[2022-02-01] VITALS (14 sets, daily range): BP systolic 111–166; BP diastolic 67–98; PULSE 91–110; RESP 16–22; TEMP 36.3–36.8; O2SAT 95–99; BMI 35.1
--- NOTE | 2022-02-01 06:06 | CTR_ITS ---
PROCEDURE INFORMATION: Exam: CT Abdomen And Pelvis Without Contrast Exam date and time: 02/01/2022 6:33 AM Age: 36 years old Clinical indication: Nausea and vomiting; Abdominal pain; Prior surgery; Surgery type: Hysterectomy. Csection x3; Patient HX: C/p periumbilical pain with n/v. History of sbo. TECHNIQUE: Imaging protocol: Computed tomography of the abdomen and pelvis without contrast. Radiation optimization: All CT scans at this facility use at least one of these dose optimization techniques: automated exposure control; mA and/or kV adjustment per patient size (includes targeted exams where dose is matched to clinical indication); or iterative reconstruction. COMPARISON: CT abdomen pelvis w con* [id number] 09/05/2020 12:39 PM RADIATION DOSE METRICS: Total DLP (mGy-cm): 1544.45 FINDINGS: Liver: A small cyst measuring 1.9 cm is again seen in the left hepatic lobe. The liver is otherwise unremarkable. Gallbladder and bile ducts: Normal. No calcified stones. No ductal dilation. Pancreas: Normal. No ductal dilation. Spleen: Normal. No splenomegaly. Adrenal glands: Normal. No mass. Kidneys and ureters: Normal. No hydronephrosis. Stomach and bowel: There is diverticulosis without evidence of diverticulitis. In the right lower quadrant, there is loops of small bowel demonstrating wall thickening, fecalization and haziness of the surrounding fat, resulting in mild prominence of small bowel loops in the right hemiabdomen and scattered air-fluid levels. Appendix: No evidence of appendicitis. Intraperitoneal space: Unremarkable. No free air. No significant fluid collection. Vasculature: Unremarkable. No abdominal aortic aneurysm. Lymph nodes: Unremarkable. No enlarged lymph nodes. Urinary bladder: Unremarkable as visualized. Reproductive: The uterus is surgically absent. Bones/joints: The patient is status post left total hip arthroplasty. Soft tissues: Unremarkable. CT/CT abdomen pelvis wo con [id number] IMPRESSION: Inflammation of small bowel loops in the right lower quadrant, resulting in bowel obstruction. Mechanical, infectious and inflammatory etiologies should be considered.
[2022-02-01] MEDS: ondansetron 2 mg/ML SDV 2 mL 4 MG IVP (06:15)
[2022-02-01] MEDS: morphine 4 mg/mL SDV 1 mL IVP ×4 (06:15→20:48)
[2022-02-01] MEDS: sodium chloride 0.9% 1,000 ML 999 ML IV (06:16)
--- NOTE | 2022-02-01 06:18 | W.ED.ABDPA2 ---
HPI - Abdominal Pain General: Chief Complaint: Abdominal Pain Stated Complaint: abd pain/ n/v Time Seen by Provider: 02/01/22 05:52 Source: patient Mode of arrival: ambulatory History of Present Illness: 36-year-old female presents emergency room complaining constipation take multiple laxatives is getting watery results has not had any fever sweats chills no dysuria urgency or frequency MD elicited complaint: abdominal pain Onset (ago): day(s) (5) Pain Consistency: constant Location: None Severity: moderate Quality: cramping Radiation: none Migration to: no migration Exacerbating factors: nothing Relieving factors: nothing Associated Symptoms: Reports constipation, GI cramping, nausea, poor appetite and vomiting; Denies anorexia, belching, bloating, change in bowel habits, change in stool character, chills, coffee ground emesis, diarrhea, dyspepsia, dysuria, excessive flatus, fever(s), heartburn, hematochezia, hematuria, hematemesis, fecal incontinence, loose stools, melena and syncope Related Data: Date of Last Menstrual Period: 07/17/20 Review of Systems Const: Denies: fever(s), chills or body aches Card: Denies: chest pain, palpitations, irregular heart rhythm, edema, swelling of feet/ankles, lightheadedness or syncope GI: Reports: abdominal pain, nausea, vomiting, constipation and GI cramping; Denies: hematemesis, coffee ground emesis, heartburn, diarrhea, bloating, belching, excessive flatus, fecal incontinence, change in bowel habits, change in stool character, hematochezia or melena : Denies: flank pain, difficulty voiding, dysuria, urinary frequency, urinary urgency or hematuria Musc: Denies: neck pain or back pain Neuro: Denies: headache(s) PFSH ED PFSH: Medical History Chronic nausea Zwpx-[id number]-Ysnmcuj disease Partial small bowel obstruction Small bowel obstruction Surgical History H/O oophorectomy (~2006) Left History of bilateral tubal ligation (~2005) At time of section. History of delivery (~2005) 2001, 2002, and 2006. 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 Last in 2017 S/P endometrial ablation (~03/2019) Performed at [facility]. Status post colonoscopy (10/07/20) Diverticulosis Family History Grandmother Cancer lung Other Diabetes Denies family history of CAD (coronary artery disease) Anesthesia complication Bleeding disorder Social History Smoking and tobacco status: current every day smoker cigarettes Packs smoked per day: 1 [ Other cigarette details: Started age 16.] Alcohol intake: current Alcohol intake frequency: few times a week Alcohol type: hard liquor Household members: children Marital status: Single Current occupational status: employed History of recent travel: No Female Reproductive History: Date of last menstrual period: 07/17/20 Spontaneous abortions: No Physical Exam Const: GENERAL APPEARANCE: cooperative and comfortable ORIENTATION/CONSCIOUSNESS: Yes awake, Yes oriented to person, Yes oriented to place and Yes oriented to time HENMT: COMMON NORMALS: normocephalic, atraumatic and hearing grossly normal bilaterally HEAD & SCALP: normocephalic and atraumatic Neck/C-Spine: COMMON NORMALS: no JVD Resp: COMMON NORMALS: normal respiratory effort, No retractions, No use of accessory muscles and clear to auscultation bilaterally AUSCULTATION: clear to auscultation bilaterally Cardio: COMMON NORMALS: no JVD, regular rate, regular rhythm and No murmurs present (Cardio) RATE: regular rate RHYTHM: regular rhythm GI: COMMON NORMALS: No hepatosplenomegaly present AUSCULTATION: Yes Absent bowel sounds PALPATION: Yes Tenderness to palpation present (GI), No Guarding due to palpation present (GI) and Yes No hepatosplenomegaly present PERCUSSION: tympanic to percussion Extremity: COMMON NORMALS: normal to inspection, capillary refill normal, no clubbing, cyanosis or edema, no calf tenderness and no pedal edema Neuro: SENSORIUM/ORIENTATION: Yes oriented to person, Yes oriented to place and Yes oriented to time Skin: COMMON NORMALS: no rashes or lesions noted GENERAL SKIN EXAM: no rashes or lesions noted Course Vital Signs: Vital signs: Vital Signs Temperature 97.8 F 02/03/22 11:52 Pulse Rate 74 02/03/22 11:52 Respiratory Rate 17 02/03/22 11:52 Blood Pressure 138/90 02/03/22 11:52 Pulse Oximetry 99 02/03/22 11:52 MDM - Abdominal Pain Medical Decision Making Small bowel obstruction discussed with surgery will admit NG placed Medical Records I reviewed the patient's medical records. Lab Data I reviewed the patient's lab results. : 02/03/22 03:31 02/03/22 03:31 Labs/Radiology: Radiology Impressions Abdomen/Pelvis CT 02/01/22 06:06 IMPRESSION: Inflammation of small bowel loops in the right lower quadrant, resulting in bowel obstruction. Mechanical, infectious and inflammatory etiologies should be considered. Chest/Abdomen X-ray 02/02/22 06:29 IMPRESSION: No sign of bowel obstruction at this time. Laboratory Results WBC 12.3 10^3/uL (4.0-10.0) H 02/01/22 06:10 RBC 4.10 10^6/uL (4.1-5.3) 02/01/22 06:10 Hgb 14.6 g/dL (11.5-15.3) 02/01/22 06:10 Hct 43.6 % (37.0-47.0) 02/01/22 06:10 MCV 106.3 fl (81-99) H 02/01/22 06:10 MCH 35.6 pg (28.0-34.0) H 02/01/22 06:10 MCHC 33.5 g/dL (30.0-36.0) 02/01/22 06:10 RDW 13.9 % (12.1-15.1) 02/01/22 06:10 Plt Count 362 10^3/cmm (130-400) 02/01/22 06:10 MPV 8.6 fL (7.4-10.4) 02/01/22 06:10 Neut % (Auto) 74.7 % 02/01/22 06:10 Lymph % (Auto) 16.0 % 02/01/22 06:10 [place] % (Auto) 7.0 % 02/01/22 06:10 Eos % (Auto) 1.5 % 02/01/22 06:10 Baso % (Auto) 0.4 % 02/01/22 06:10 Neut # (Auto) 9.17 10^3/uL (1.8-7.7) H 02/01/22 06:10 Lymph # (Auto) 2.0 10^3/uL (0.8-4.8) 02/01/22 06:10 [place] # (Auto) 0.9 10^3/uL (0.2-0.9) 02/01/22 06:10 Eos # (Auto) 0.2 10^3/uL (0.0-0.8) 02/01/22 06:10 Baso # (Auto) 0.1 10^3/uL (0.0-0.1) 02/01/22 06:10 Nucleated RBC % (auto) 0 % 02/01/22 06:10 Nucleated RBCs # 0.0 /100WBC 02/01/22 06:10 Sodium 136 mmol/L (136-145) 02/01/22 06:10 Potassium 4.2 mmol/L (3.5-5.1) 02/01/22 06:10 Chloride 100 mmol/L (98-107) 02/01/22 06:10 Carbon Dioxide 26 mmol/L (22-29) 02/01/22 06:10 Anion Gap 14.2 (5-19) 02/01/22 06:10 BUN 9 mg/dL (6-20) 02/01/22 06:10 Creatinine 0.7 mg/dL (0.5-0.9) 02/01/22 06:10 GFR Calculation 94.2 mL/min (90-130) 02/01/22 06:10 Glucose 120 mg/dL (65-115) H 02/01/22 06:10 Calculated Osmolality 282 mOsm/kg (285-295) L 02/01/22 06:10 Lactic Acid 1.7 mmol/L (0.5-2.2) 02/01/22 06:10 Calcium 9.8 mg/dL (8.5-10.5) 02/01/22 06:10 Total Bilirubin 0.3 mg/dL (0.15-1.2) 02/01/22 06:10 AST 50 U/L (0-32) H 02/01/22 06:10 ALT 46 U/L (0-33) H 02/01/22 06:10 Alkaline Phosphatase 73 IU/L (35-105) 02/01/22 06:10 Total Protein 7.3 g/dL (6.6-8.7) 02/01/22 06:10 Albumin 4.5 g/dL (3.5-5.2) 02/01/22 06:10 Globulin 2.8 g/dL (1.3-4.6) 02/01/22 06:10 Lipase 55 U/L (13-60) 02/01/22 06:10 Discharge Plan Discharge Patient Disposition: Admitted As Inpatient Admit Provider: Kanu Dillon Clinical Impression: Small bowel obstruction Condition: Stable Discharge Diet: GI Soft Discharge Activity: Resume usual activity Coding Level of Care Code ED Associate Professor Of Automation for Nikig Fwd Exam Comprehensive
[2022-02-01 06:20] LABS: Basophils # 0.1 10^3/uL (0.0-0.1); Basophils % 0.4 %; Eosinophils # 0.2 10^3/uL (0.0-0.8); Eosinophils % 1.5 %; Hematocrit 43.6 % (37.0-47.0); Hemoglobin 14.6 g/dL (11.5-15.3); Mean Corpuscular HGB Conc 33.5 g/dL (30.0-36.0); Mean Corpuscular Hemoglobin 35.6 pg (28.0-34.0); Mean Corpuscular Volume 106.3 fl (81-99); Mean Platelet Volume 8.6 fL (7.4-10.4); Monocytes # 0.9 10^3/uL (0.2-0.9); Neutrophils # 9.17 10^3/uL (1.8-7.7); Neutrophils % 74.7 %; Nucleated Red Blood Cells % 0 %; Platelet Count 362 10^3/cmm (130-400); Red Cell Distribution Width 13.9 % (12.1-15.1); White Blood Count 12.3 10^3/uL (4.0-10.0)
[2022-02-01 06:46] LABS: Alanine Aminotransferase 46 U/L (0-33); Albumin Level 4.5 g/dL (3.5-5.2); Alkaline Phosphatase 73 IU/L (35-105); Anion Gap 14.2 (5-19); Aspartate Amino Transferase 50 U/L (0-32); Blood Urea Nitrogen 9 mg/dL (6-20); Calcium 9.8 mg/dL (8.5-10.5); Carbon Dioxide 26 mmol/L (22-29); Chloride 100 mmol/L (98-107); Globulin 2.8 g/dL (1.3-4.6); Glomerular Filtration Rate 94.2 mL/min (90-130); Glucose 120 mg/dL (65-115); Lactic Sepsis W/Reflex 1.7 mmol/L (0.5-2.2); Lipase 55 U/L (13-60); Osmolality Calculated 282 mOsm/kg (285-295); Potassium 4.2 mmol/L (3.5-5.1); Sodium 136 mmol/L (136-145); Total Bilirubin 0.3 mg/dL (0.15-1.2); Total Protein 7.3 g/dL (6.6-8.7)
[2022-02-01] MEDS: cetacaine Spray 5 gm Can 1 SPRAY TOPICAL (07:37)
[2022-02-01] MEDS: LORazepam 2 mg/mL INJ 1 mL IVP (07:37)
--- NOTE | 2022-02-01 09:01 | PC.NURSE ---
room assignment given- nurse unavailable for report- report attempted
--- NOTE | 2022-02-01 09:13 | PC.NURSE ---
report given to Shirley OLVERA
[2022-02-01] MEDS: enoxaparin 40 mg/0.4 mL Syringe SUBCUT (09:58)
[2022-02-01] MEDS: pantoprazole 40 mg SDV IVP (09:58)
[2022-02-01] MEDS: ketorolac 30 mg/mL INJ IVP ×2 (10:05→20:07)
[2022-02-01] MEDS: sodium chloride 0.9% 1,000 ML 150 ML IV ×3 (10:07→23:23)
--- NOTE | 2022-02-01 13:16 | PC.CHAP ---
Pastoral Care Encounter/Spiritual Assessment Type of Contact [] Declined industrial arts teacher visit [] Patient/Family/Request visit [] Outpatient visit [] Follow-up visit [] Physician referral [] Code/Alert x[] Routine visit [] Staff referral [] Actively dying [] Patient sleeping [] Family support [] [] Out of room [] Palliative care [] [] Receiving care in room [] Pre-surgical visit [] Trauma [] Long length of stay [] ICU visit [] Other: Relational/Emotional Strength [x] Patient feels connected with others/family/visitors/staff [] Distress [] Loneliness/isolation [] Abandonment Spirituality of Patient [x] Person of Sheila [] Attends Gnosticism of their Sheila [x] Believes in Prayer [] Reads Bible or Religion materials [] There are Spiritual issues to be addressed Fabric Pattern Grader Interventions [x] Prayer [xx] Active listening x] Non-anxious presence [] Spiritual/emotional support [] Crisis/trauma care [] Spiritual counseling [] Bereavement support [] Provided bereavement packet [] Provided Bible/devotional materials [] Provided toy/stuffed animal, coloring book to patient or family member [] Provided Communion [] Anointing/[place] [] Salvation [x] Completed spiritual assessment [] Other: Impact on Illness or Injury [] Angry [] Fearful [] Anxious [] Often cries [] Exhaustion [] Unable to work [] Unable to attend gnosticism [] Unable to walk/stand [] Unable to read [] Unable to drive [] Unable to eat/drink [] Unable to sleep [] Unable to be with family [] Patient intubated [] Other: Summary Time spent with patient 10 min
[2022-02-01 13:19] LABS: Add Urine Microscopic? NO; Charge for UA Resulting for Rev
[2022-02-01 13:22] LABS: Bilirubin Urine Neg (Negative); Blood Urine Neg (Negative); Glucose Urine UA Norm (Normal); Ketones Urine Negative (Negative); Leukocyte Esterase Urine Negative (Negative); Nitrate Urine Negative (Negative); Protein Urine Neg (Negative); Specific Gravity, Urine 1.005 (1.005-1.030); Urine Appearance Clear (CLEAR); Urine Color Yellow (Yellow); Urobilinogen Urine Norm (Negative); pH Urine 7 (5-7)
--- NOTE | 2022-02-01 15:07 | P.HP_ITS ---
Providers/Chief Complaint Admitting Physician: Kanu Dillon DO Primary Care Provider: Roxi Ramirez MD Chief Complaint: abd pain/ n/v History of Present Illness oDmi Charles is a 36 year old female who presented to the hospital with a 1 week history of diffuse abdominal pain nausea and vomiting. She has a history of small bowel obstruction which resolved nonoperatively. She has had 3 sections, tubal ligation, a left oophorectomy and tubal ligations. Her abdomi nal pain is diffuse, dull and constant. Palpation makes pain worse. Nothing makes it better. Pain does not radiate. Emesis has been nonbilious and nonbloody. She reports having diarrhea for the last year and a half, ever since her last small bowel obstruction. Denies any hematochezia or melena. Review of Systems General: Reports: 10 or more systems reviewed and unremarkable except in HPI and below Medications/Allergies Home Medications Medication Instructions Recorded Confirmed Last Taken Type tramadol 50 mg tablet 50 - 100 mg PO Q6H PRN 08/11/21 02/01/22 Unknown History albuterol sulfate 90 mcg/actuation 2 puff INHALATION Q6H PRN #8.5 g 08/19/21 02/01/22 Unknown Rx aerosol inhaler (ProAir HFA) Vitamin B-12 1 tab PO DAILY 02/01/22 02/01/22 Unknown History Vitamin D3 1 cap PO DAILY 02/01/22 02/01/22 Unknown History ascorbic acid (vitamin C) 500 mg 500 mg PO DAILY 02/01/22 02/01/22 Unknown History tablet (Vitamin C) naproxen sodium 220 mg tablet 220 mg PO Q12H PRN 02/01/22 02/01/22 Unknown History (Aleve) omeprazole 20 mg capsule,delayed 20 mg PO BID 02/01/22 02/01/22 Unknown History release podofilox 0.5 % topical solution 1 applic TOPICAL .THREE TIMES A 02/01/22 02/01/22 Unknown History WEEK zinc 50 mg tablet 50 mg PO DAILY 02/01/22 02/01/22 Unknown History Allergies Allergy/AdvReac Type Severity Reaction Status Date / Time No Known Allergies Allergy Verified 02/01/22 07:57 PFSH Acute PFSH: Medical History (Updated 02/01/22 @ 15:19 by Kanu Dillon DO) Chronic nausea Glys-Dmuli-Racyavg disease Partial small bowel obstruction Small bowel obstruction Surgical History H/O oophorectomy (~2006) Left History of bilateral tubal ligation (~2005) At time of section. History of delivery (~2005) 2001, 2002, and 2005. 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 Last in 2017 S/P endometrial ablation (~03/2019) Performed at [facility]. Status post colonoscopy (10/07/20) Diverticulosis Family History Grandmother Cancer lung Other Diabetes Denies family history of CAD (coronary artery disease) Anesthesia complication Bleeding disorder Social History Smoking and tobacco status: current every day smoker cigarettes Packs smoked per day: 1 [ Other cigarette details: Started age 16.] Alcohol intake: current Alcohol intake frequency: few times a week Alcohol type: hard liquor Household members: children Marital status: Single Current occupational status: employed History of recent travel: No Female Reproductive History: Date of last menstrual period: 07/17/20 Spontaneous abortions: No Vitals/I&O/Wt Last Vital Signs Temp 97.4 F L 02/01/22 08:34 Pulse 95 02/01/22 14:36 Resp 18 02/01/22 14:36 BP 127/67 02/01/22 09:00 Pulse Ox 97 02/01/22 14:36 Weight last 48 hrs Weight 192 lb Physical Exam Narrative: General : Patient is well developed , no acute distress, oriented x3 Head : Normal cephalic, a-traumatic. Ears : TM's are without erythema or bulging, Pinnae and external canal are normal.? Hearing is normal. ? Eyes : PERRLA,? Sclera and injection are normal. No conjunctival discharge. Nose : Mucous membranes are without erythema. Throat : buccal mucosa is normal, gums are without significant recession or hypertrophy. Lungs : Clear to ausculation, trachea is midline. Cor : Rate and rhythm are normal.? ? Abdomen : Soft, mild distension, minimal RLQ tenderness, no g/r/m Extremities : No edema, no cyanosis or clubbing, dorsalis pedis pulses are present bilaterally, non-tender to palpation of calves.? Upper extremities are normal bilaterally. Back : non-tender to palpation, no CVA tenderness. Neuro : CN II - XII intact, Upper and lower extremities have equal and full strength Data : 02/01/22 06:10 02/01/22 06:10 CT Abd/Pel: My impression: Inflammation R side of abdomen with air-fluid levels in small bowel. A&P Assessment and plan (1) Partial small bowel obstruction: Secondary to adhesions versus infections etiology. Status: Acute Plan IVF Daily labs NPO NGT to LIWS Abdominal exams No acute surgical intervention at this time. Attestations Medical Necessity Statement*: partial small bowel obstruction Coding Level of Care Code Established Pt Acute Burglar Alarm Installer for Chg Fwd Patient Type Established History Expanded Problem Focused Exam Expanded Problem Focused Medical Decision Making Low Complexity Diagnoses Partial small bowel obstruction K56.600
[2022-02-01] MEDS: nicotine 14 mg Patch 1 PATCH TRANSDERMA (21:33)
[2022-02-02] VITALS (13 sets, daily range): BP systolic 105–189; BP diastolic 67–89; PULSE 75–90; RESP 16–20; TEMP 36.5–36.8; O2SAT 92–99
[2022-02-02] MEDS: morphine 4 mg/mL SDV 1 mL IVP ×6 (01:03→22:38)
[2022-02-02] MEDS: ketorolac 30 mg/mL INJ IVP ×2 (04:04→11:39)
[2022-02-02 04:56] LABS: Basophils % 0.5 %; Eosinophils # 0.3 10^3/uL (0.0-0.8); Eosinophils % 3.5 %; Hematocrit 35.8 % (37.0-47.0); Hemoglobin 11.7 g/dL (11.5-15.3); Lymphocytes # 2.9 10^3/uL (0.8-4.8); Lymphocytes % 39.2 %; Mean Corpuscular HGB Conc 32.7 g/dL (30.0-36.0); Mean Corpuscular Hemoglobin 36.3 pg (28.0-34.0); Mean Corpuscular Volume 111.2 fl (81-99); Mean Platelet Volume 8.7 fL (7.4-10.4); Monocytes # 0.7 10^3/uL (0.2-0.9); Monocytes % 9.4 %; Neutrophils # 3.47 10^3/uL (1.8-7.7); Neutrophils % 47.1 %; Nucleated Red Blood Cells % 0 %; Platelet Count 278 10^3/cmm (130-400); Red Blood Count 3.22 10^6/uL (4.1-5.3); Red Cell Distribution Width 14.2 % (12.1-15.1); White Blood Count 7.4 10^3/uL (4.0-10.0)
[2022-02-02 05:25] LABS: Blood Urea Nitrogen 14 mg/dL (6-20); Calcium 8.7 mg/dL (8.5-10.5); Carbon Dioxide 24 mmol/L (22-29); Chloride 106 mmol/L (98-107); Glomerular Filtration Rate 80.7 mL/min (90-130); Glucose 89 mg/dL (65-115); Magnesium 1.8 mg/dL (1.7-2.3); Osmolality Calculated 288 mOsm/kg (285-295); Phosphorus 5.2 mg/dL (2.5-4.5); Sodium 139 mmol/L (136-145)
[2022-02-02 05:30] LABS: Anion Gap 12.6 (5-19); Potassium 3.6 mmol/L (3.5-5.1)
[2022-02-02] MEDS: sodium chloride 0.9% 1,000 ML 150 ML IV ×2 (05:49→17:15)
--- NOTE | 2022-02-02 06:29 | XRR_ITS ---
PROCEDURE INFORMATION: Exam: XR Abdomen Exam date and time: 02/02/2022 5:45 AM Age: 36 years old Clinical indication: Condition or disease; Intestinal condition; Obstruction; Prior surgery; Surgery type: Hysterectomy. Csection x 3; Patient HX: F/u for rlq sbo. Ng tube in place. TECHNIQUE: Imaging protocol: XR of the abdomen. Views: 2 Views. Upright and supine views. COMPARISON: CT abdomen pelvis con [id number] 02/01/2022 6:33 AM FINDINGS: Tubes, catheters and devices: There is an enteric tube extending down into the stomach. Heart/Mediastinum: The cardiac silhouette is not enlarged. The mediastinal contours are normal. Lungs: No pneumonia or pulmonary edema. Pleural space: No pleural effusion or pneumothorax. Gastrointestinal tract: No dilated gas-filled loops of bowel. No suspicious air-fluid levels. Gas is primarily in the colon and rectum. Intraperitoneal space: No gross pneumoperitoneum. Bones/joints: Prior left bipolar hip arthroplasty. XR/XR acute abdomen series [id number] IMPRESSION: No sign of bowel obstruction at this time.
--- NOTE | 2022-02-02 09:33 | PM.PN ---
Subjective Subjective: Patient reports feeling better this morning. No N/V. She reports that she is not passing flatus or having BM's since arrival. Vitals/I&O/Wt Last Vital Signs Temp 97.8 F 02/02/22 07:57 Pulse 90 02/02/22 08:29 Resp 18 02/02/22 08:29 BP 119/83 02/02/22 07:57 Pulse Ox 94 02/02/22 08:29 02/01/22 02/02/22 02/02/22 22:59 06:59 14:59 Intake Total 1000 / 1000 1670 / 2670 Output Total 925 / 925 700 / 1625 Balance 75 / 75 970 / 1045 Weight last 48 hrs Weight 192 lb 1.6 oz Weight 192 lb Physical Exam Narrative: Gen: NAD, AAOx3 Abd: S, mod D, mild diffuse tenderness, no g/r/m Data : 02/02/22 04:39 02/02/22 04:39 KUB: My impression: NGT in proper position. No air-fluid levels or bowel dilation A&P Assessment and plan (1) Partial small bowel obstruction: Secondary to adhesions versus infections etiology. Status: Acute Plan IVF Daily labs- replace electrolytes NPO NGT to LIWS Abdominal exams Stool studies Xray doesn't show significant obstruction. No acute surgical intervention at this time. Attestations Medical Necessity Statement*: Patient has NGT Coding Level of Care Code Acute Bondactor Machine Operator for Leidy Agosto Medical Decision Making Low Complexity Diagnoses Partial small bowel obstruction K56.600
[2022-02-02] MEDS: nicotine 14 mg Patch 1 PATCH TRANSDERMA (10:13)
[2022-02-02] MEDS: magnesium sulfate premix 2 GM/50 ML PIGGYBACK IV (10:13)
[2022-02-02] MEDS: potassium chloride premix 100 ML 25 MEQ IV (10:13)
[2022-02-02] MEDS: pantoprazole 40 mg SDV IVP (10:13)
[2022-02-02] MEDS: enoxaparin 40 mg/0.4 mL Syringe SUBCUT (10:14)
--- NOTE | 2022-02-02 10:58 | PC.CHAP ---
Pastoral Care Encounter/Spiritual Assessment Type of Contact [] Declined cloth washer operator visit [] Patient/Family/Request visit [] Outpatient visit [] Follow-up visit [] Physician referral [] Code/Alert [x] Routine visit [] Staff referral [] Actively dying [] Patient sleeping [] Family support [] [] Out of room [] Palliative care [] [] Receiving care in room [x] Pre-surgical visit [] Trauma [] Long length of stay [] ICU visit [] Other: Relational/Emotional Strength [x] Patient feels connected with others/family/visitors/staff [] Distress [] Loneliness/isolation [] Abandonment Spirituality of Patient [] Person of Sheila [] Attends Anabaptist of their Sheila [] Believes in Prayer [] Reads Bible or Faith materials [] There are Spiritual issues to be addressed Food Storeroom Clerk Interventions [] Prayer [] Active listening [] Non-anxious presence [] Spiritual/emotional support [] Crisis/trauma care [] Spiritual counseling [] Bereavement support [] Provided bereavement packet [] Provided Bible/devotional materials [] Provided toy/stuffed animal, coloring book to patient or family member [] Provided Communion [] Anointing/[place] [] Salvation [] Completed spiritual assessment [] Other: Impact on Illness or Injury [] Angry [] Fearful [] Anxious [] Often cries [] Exhaustion [] Unable to work [] Unable to attend zoroastrian [] Unable to walk/stand [] Unable to read [] Unable to drive [] Unable to eat/drink [] Unable to sleep [] Unable to be with family [] Patient intubated [] Other: Summary She is feeling better + 1 well be going home Time spent with patient 10 mins
[2022-02-03] VITALS: BP 130/82; PULSE 75; RESP 17; TEMP 36.7; O2SAT 98
[2022-02-03] MEDS: sodium chloride 0.9% 1,000 ML 150 ML IV (00:22)
[2022-02-03 03:22] VITALS: RESP 18; O2SAT 98
[2022-02-03] MEDS: morphine 4 mg/mL SDV 1 mL IVP (03:22)
[2022-02-03 03:54] LABS: Basophils % 0.6 %; Eosinophils # 0.2 10^3/uL (0.0-0.8); Eosinophils % 3.4 %; Hemoglobin 11.2 g/dL (11.5-15.3); Lymphocytes # 2.1 10^3/uL (0.8-4.8); Lymphocytes % 31.3 %; Mean Corpuscular Hemoglobin 35.9 pg (28.0-34.0); Mean Corpuscular Volume 112.2 fl (81-99); Monocytes # 0.6 10^3/uL (0.2-0.9); Monocytes % 8.5 %; Neutrophils # 3.72 10^3/uL (1.8-7.7); Neutrophils % 55.8 %; Nucleated Red Blood Cells % 0 %; Platelet Count 280 10^3/cmm (130-400); Red Blood Count 3.12 10^6/uL (4.1-5.3); Red Cell Distribution Width 14.1 % (12.1-15.1); White Blood Count 6.7 10^3/uL (4.0-10.0)
[2022-02-03 04:00] VITALS: BP 107/68; PULSE 80; RESP 16; TEMP 36.7; O2SAT 96
[2022-02-03 04:22] LABS: Anion Gap 10.1 (5-19); Blood Urea Nitrogen 11 mg/dL (6-20); Calcium 8.4 mg/dL (8.5-10.5); Carbon Dioxide 26 mmol/L (22-29); Chloride 105 mmol/L (98-107); Glomerular Filtration Rate 94.2 mL/min (90-130); Glucose 96 mg/dL (65-115); Magnesium 2.2 mg/dL (1.7-2.3); Osmolality Calculated 283 mOsm/kg (285-295); Phosphorus 3.8 mg/dL (2.5-4.5); Potassium 4.1 mmol/L (3.5-5.1); Sodium 137 mmol/L (136-145)
[2022-02-03 07:35] VITALS: BP 140/85; PULSE 83; RESP 17; TEMP 36.9; O2SAT 94
[2022-02-03] MEDS: nicotine 14 mg Patch 1 PATCH TRANSDERMA (08:51)
[2022-02-03] MEDS: enoxaparin 40 mg/0.4 mL Syringe SUBCUT (08:52)
[2022-02-03] MEDS: pantoprazole 40 mg SDV IVP (08:52)
[2022-02-03 09:03] VITALS: PULSE 81; RESP 18; O2SAT 97
--- NOTE | 2022-02-03 09:41 | PM.DCS ---
Discharge Providers Date of Admission: 02/01/22 07:29 Date of Discharge: February 03, 2022 Attending Provider at Admission: Kanu Dillon DO Attending Provider at Discharge: Kanu Dillon DO Consults: none Primary Care Provider: Roxi Ramirez MD Diagnoses at Discharge Discharge Diagnosis (1) Partial small bowel obstruction: Details from hospital stay: Partial small bowel obstruction Gastroenteritis Status: Acute Reason for Visit Reason for Visit: abd pain/ n/v Brief History: Patient presented with her second episode of partial small bowel obstruction which resolved. Hospital Course Hospital Course 36-year-old female who presented to hospital with her second episode of partial small bowel obstruction. She was having 2 days of abdominal pain prior to arrival. CT showed extensive enteritis, consistent with gastroenteritis. Partial obstruction related to adhesions cannot be ruled out however. An NG tube was placed and she was made NPO. She progressed until she was able to tolerate a soft diet and was discharged home in good condition. Physical Exam Narrative: General : Patient is well developed , no acute distress, oriented x3 Head : Normal cephalic, a-traumatic. Ears : TM's are without erythema or bulging, Pinnae and external canal are normal.? Hearing is normal. ? Eyes : PERRLA,? Sclera and injection are normal. No conjunctival discharge. Nose : Mucous membranes are without erythema. Throat : buccal mucosa is normal, gums are without significant recession or hypertrophy. Lungs : Clear to ausculation, trachea is midline. Cor : Rate and rhythm are normal.? ? Abdomen : Soft, mild distension, minimal RLQ tenderness, no g/r/m Extremities : No edema, no cyanosis or clubbing, dorsalis pedis pulses are present bilaterally, non-tender to palpation of calves.? Upper extremities are normal bilaterally. Back : non-tender to palpation, no CVA tenderness. Neuro : CN II - XII intact, Upper and lower extremities have equal and full strength Discharge Data Studies Completed and Pending Completed Studies During Hospitalization Category Date Time Status CT abdomen pelvis wo con [id number] Stat Cat Scan 02/01/22 06:06 Completed XR acute abdomen series [id number] Routine Exams 02/02/22 06:29 Completed Pending at discharge Category Date Time Status Basic Metabolic Panel AM LABS Lab 02/04/22 04:00 Ordered Complete Blood Count w/Auto AM LABS Lab 02/04/22 04:00 Ordered Magnesium AM LABS Lab 02/04/22 04:00 Ordered Phosphorus AM LABS Lab 02/04/22 04:00 Ordered Rota Virus AG Stool Routine Lab 02/02/22 21:15 Received Stool Culture, Bacterial [Enteric Bacterial Panel by Lab 02/02/22 21:15 Received PCR] Routine stool Ova and Parasite [Enteric Parasite Panel by PCR] Lab 02/02/22 21:15 Received Routine Radiology Impressions Abdomen/Pelvis CT 02/01/22 06:06 IMPRESSION: Inflammation of small bowel loops in the right lower quadrant, resulting in bowel obstruction. Mechanical, infectious and inflammatory etiologies should be considered. Chest/Abdomen X-ray 02/02/22 06:29 IMPRESSION: No sign of bowel obstruction at this time. Laboratory Results WBC 6.7 10^3/uL (4.0-10.0) 02/03/22 03:31 RBC 3.12 10^6/uL (4.1-5.3) L 02/03/22 03:31 Hgb 11.2 g/dL (11.5-15.3) L 02/03/22 03:31 Hct 35.0 % (37.0-47.0) L 02/03/22 03:31 MCV 112.2 fl (81-99) H 02/03/22 03:31 MCH 35.9 pg (28.0-34.0) H 02/03/22 03:31 MCHC 32.0 g/dL (30.0-36.0) 02/03/22 03:31 RDW 14.1 % (12.1-15.1) 02/03/22 03:31 Plt Count 280 10^3/cmm (130-400) 02/03/22 03:31 MPV 9.0 fL (7.4-10.4) 02/03/22 03:31 Neut % (Auto) 55.8 % 02/03/22 03:31 Lymph % (Auto) 31.3 % 02/03/22 03:31 [place] % (Auto) 8.5 % 02/03/22 03:31 Eos % (Auto) 3.4 % 02/03/22 03:31 Baso % (Auto) 0.6 % 02/03/22 03:31 Neut # (Auto) 3.72 10^3/uL (1.8-7.7) 02/03/22 03:31 Lymph # (Auto) 2.1 10^3/uL (0.8-4.8) 02/03/22 03:31 [place] # (Auto) 0.6 10^3/uL (0.2-0.9) 02/03/22 03:31 Eos # (Auto) 0.2 10^3/uL (0.0-0.8) 02/03/22 03:31 Baso # (Auto) 0.0 10^3/uL (0.0-0.1) 02/03/22 03:31 Nucleated RBC % (auto) 0 % 02/03/22 03:31 Nucleated RBCs # 0.0 /100WBC 02/03/22 03:31 Sodium 137 mmol/L (136-145) 02/03/22 03:31 Potassium 4.1 mmol/L (3.5-5.1) 02/03/22 03:31 Chloride 105 mmol/L (98-107) 02/03/22 03:31 Carbon Dioxide 26 mmol/L (22-29) 02/03/22 03:31 Anion Gap 10.1 (5-19) 02/03/22 03:31 BUN 11 mg/dL (6-20) 02/03/22 03:31 Creatinine 0.7 mg/dL (0.5-0.9) 02/03/22 03:31 GFR Calculation 94.2 mL/min (90-130) 02/03/22 03:31 Glucose 96 mg/dL (65-115) 02/03/22 03:31 Calculated Osmolality 283 mOsm/kg (285-295) L 02/03/22 03:31 Lactic Acid 1.7 mmol/L (0.5-2.2) 02/01/22 06:10 Calcium 8.4 mg/dL (8.5-10.5) L 02/03/22 03:31 Phosphorus 3.8 mg/dL (2.5-4.5) 02/03/22 03:31 Magnesium 2.2 mg/dL (1.7-2.3) 02/03/22 03:31 Total Bilirubin 0.3 mg/dL (0.15-1.2) 02/01/22 06:10 AST 50 U/L (0-32) H 02/01/22 06:10 ALT 46 U/L (0-33) H 02/01/22 06:10 Alkaline Phosphatase 73 IU/L (35-105) 02/01/22 06:10 Total Protein 7.3 g/dL (6.6-8.7) 02/01/22 06:10 Albumin 4.5 g/dL (3.5-5.2) 02/01/22 06:10 Globulin 2.8 g/dL (1.3-4.6) 02/01/22 06:10 Lipase 55 U/L (13-60) 02/01/22 06:10 Urine Color Yellow (Yellow) 02/01/22 10:00 Urine Appearance Clear (CLEAR) 02/01/22 10:00 Urine pH 7 (5-7) 02/01/22 10:00 Ur Specific [place] 1.005 (1.005-1.030) 02/01/22 10:00 Urine Protein Neg (Negative) 02/01/22 10:00 Urine Glucose (UA) Norm (Normal) 02/01/22 10:00 Urine Ketones Negative (Negative) 02/01/22 10:00 Urine Blood Neg (Negative) 02/01/22 10:00 Urine Nitrate Negative (Negative) 02/01/22 10:00 Urine Bilirubin Neg (Negative) 02/01/22 10:00 Urine Urobilinogen Norm mg/dL (Negative) 02/01/22 10:00 Ur Leukocyte Esterase Negative (Negative) 02/01/22 10:00 Vitals Last Vital Signs Temp 98.5 F 02/03/22 07:35 Pulse 81 02/03/22 09:03 Resp 18 02/03/22 09:03 BP 140/85 02/03/22 07:35 Pulse Ox 97 02/03/22 09:03 Discharge Plan Discharge Patient Disposition: Home Condition: Stable Prescriptions: Continued albuterol sulfate [ProAir HFA] 90 mcg/actuation HFA aerosol inhaler 2 puff inhalation Q6H PRN (Reason: shortness of breath or wheezing) Qty: 8.5 0RF tramadol 50 mg tablet 50 - 100 mg PO Q6H PRN (Reason: Pain) 0RF Vitamin C 500 mg Tablet 500 mg PO DAILY 0RF podofilox 0.5 % solution 1 applic TOPICAL .THREE TIMES A WEEK 0RF Aleve 220 mg Tablet 220 mg PO Q12H PRN (Reason: Pain) 0RF omeprazole 20 mg capsule,delayed release(DR/EC) 20 mg PO BID 0RF zinc 50 mg Tablet 50 mg PO DAILY 0RF Vitamin B-12 1 tab PO DAILY 0RF Vitamin D3 1 cap PO DAILY 0RF Discharge Orders: Discharge Order (Routine); Ordered 02/03/22 Ordered By: Kanu Dillon Referrals: Roxi Ramirez MD [Primary Care Provider] - Discharge Diet: GI Soft Discharge Activity: Resume usual activity Patient Instructions: Opioid Safety Discharge Attestations Time Spent in Discharge Care*: less than 30 min Quality Metrics Clinical Quality Measures [ No reported AMI, CVA or VTE this stay] Coding Level of Care Code Established Pt Acute Chg FW DC note Patient Type Established History Expanded Problem Focused Exam Expanded Problem Focused Medical Decision Making Low Complexity Diagnoses Partial small bowel obstruction K56.600
[2022-02-03] MEDS: ketorolac 30 mg/mL INJ IVP (10:28)
[2022-02-03 11:52] VITALS: BP 138/90; PULSE 74; RESP 17; TEMP 36.6; O2SAT 99
== END 2022-02-03 15:22 | disposition home or self-care (01) | DRG 390 ==
LOC: ER 07:44 → MEDSURG 08:38
PROVIDERS: Admitting Provider Surgery; Emergency Provider Family Medicine; PCP Obstetrics & Gynecology; Visit Provider Surgery
DX: K56.51 Intestinal adhesions [bands], with partial obstruction (principal); F17.210 Nicotine dependence, cigarettes, uncomplicated; K52.9 Noninfective gastroenteritis and colitis, unspecified
CPT/HCPCS: 36415; 74022; 74176; 80048; 80053; 81003; 83605; 83630; 83690; 83735; 84100; 85025; 87425; 87506; 96361; 96374; 96375; 96376; 99285; C9113; J1650; J1885; J2060; J2270; J2405; J3475; J3480; J7030

== ENCOUNTER → 2022-02-09 08:06 | Outpatient (BNVA) | payer BC, SELFPAY | PROVIDERS: PCP Obstetrics & Gynecology; Visit Provider Surgery | DX: Z09 Encounter for follow-up examination after completed treatment for conditions other than malignant neoplasm (principal) | CPT/HCPCS: 99202 ==

== ENCOUNTER 2023-01-16 18:54 | Emergency (ER) | payer BC, MEDICAID, SELFPAY ==
--- NOTE | 2023-01-16 19:03 | XRR_ITS ---
PROCEDURE INFORMATION: Exam: XR Left Ribs with PA Chest Exam date and time: 01/16/2023 7:14 PM Age: 37 years old Clinical indication: Chest wall pain; Left TECHNIQUE: Imaging protocol: Radiologic exam of the left ribs with PA chest. Views: 3 views COMPARISON: CR XR chest 1V portable [id number] 09/02/2020 5:55 PM FINDINGS: Lungs: Unremarkable. No consolidation. Pleural spaces: Unremarkable. No pleural effusion. No pneumothorax. Heart/Mediastinum: Unremarkable. No cardiomegaly. Bones/joints: Unremarkable. XR/XR ribs LT mn 3V w CXR1V [id number] IMPRESSION: No acute findings.
[2023-01-16 19:34] VITALS: BP 152/94; PULSE 116; RESP 18; TEMP 36.8; O2SAT 97
--- NOTE | 2023-01-16 20:44 | ED_ITS ---
HPI - URI/Sore Throat General: Chief Complaint: Upper Respiratory Infection Stated Complaint: Left side rib pain Time Seen by Provider: 01/16/23 20:43 History of Present Illness: 37-year-old female comes in today with complaints of left lateral rib pain. Patient reports cough with congestion for about 10 days. Patient reports last week she had coughed real hard instead some left lateral rib discomfort. Over the past 2 to 3 days patient has had worsening left rib pain. Patient at this time is on antibiotics, doxycycline, and prednisone for a lower respiratory infection. Patient appears in mild to moderate pain. Patient appears in no acute distress. Associated symptoms: Deny chest pain, fever(s) or vomiting Review of Systems Const: Denies: fever(s) Card: Denies: chest pain Resp: Denies: dyspnea GI: Denies: vomiting : Denies: flank pain Musc: Reports: other (Rib pain) Skin/Breast: Denies: rash PFSH ED PFSH: Medical History Chronic nausea Hgnt-Icqut-Vrajgmt disease Partial small bowel obstruction Small bowel obstruction Surgical History H/O oophorectomy (~2006) Left History of bilateral tubal ligation (~2005) At time of section. History of delivery (~2005) 2001, 2002, and 2005. 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 Last in 2017 S/P endometrial ablation (~03/2019) Performed at [facility]. Status post colonoscopy (10/07/20) Diverticulosis Family History Grandmother Cancer lung Other Diabetes Denies family history of CAD (coronary artery disease) Anesthesia complication Bleeding disorder Social History Smoking and tobacco status: current every day smoker cigarettes Packs smoked per day: 1 [ Other cigarette details: Started age 16.] Alcohol intake: current Alcohol intake frequency: few times a week Alcohol type: hard liquor Substance/Drug Use: never Household members: children Marital status: Single Current occupational status: employed Female Reproductive History: Spontaneous abortions: No Physical Exam Const: COMMON NORMALS: alert HENMT: COMMON NORMALS: normocephalic HEAD & SCALP: normocephalic Neck/C-Spine: COMMON NORMALS: full ROM Chest: CHEST: Yes tenderness (Left lateral ribs) Resp: COMMON NORMALS: normal respiratory effort and clear to auscultation bilaterally AUSCULTATION: clear to auscultation bilaterally Back/Pelvis: COMMON NORMALS: thoracic and lumbar spine normal to inspection Extremity: COMMON NORMALS: no pedal edema Neuro: SENSORIUM/ORIENTATION: Yes alert Skin: COMMON NORMALS: turgor normal GENERAL SKIN EXAM: turgor normal Course Vital Signs: Vital signs: Vital Signs Temperature 98.3 F 01/16/23 19:34 Pulse Rate 116 H 01/16/23 19:34 Respiratory Rate 18 01/16/23 19:34 Blood Pressure 152/94 01/16/23 19:34 Pulse Oximetry 97 01/16/23 19:34 Oxygen Delivery Me thod Room Air 01/16/23 19:34 MDM - URI/Sore Throat Medical Decision Making 37-year-old female comes in today with complaints of left lateral rib pain. On exam patient has some tenderness to palpation in the left lateral ribs without crepitus or subcu emphysema. Lungs are clear to auscultation. No spinal tenderness is noted on palpation. No edema is noted. Differential diagnosis includes but not limited to fracture of the rib, pneumonia, costochondritis. X- ray notes no fracture or pneumonia. Reviewed exam with patient with recommendations for treatment for costochondritis. Patient reported understanding and agreed to plan. Lab Data Radiology Impressions Ribs X-Ray 01/16/23 19:03 IMPRESSION: No acute findings. Discharge Plan Discharge Patient Disposition: Home Clinical Impression: Sprain of ribs, initial encounter Condition: Stable Prescriptions: New hydrocodone-acetaminophen 5-325 mg tablet 1 tab PO Q8H PRN (Reason: pain (scale score 7-10)) Qty: 7 0RF No Action albuterol sulfate [ProAir HFA] 90 mcg/actuation HFA aerosol inhaler 2 puff inhalation Q6H PRN (Reason: shortness of breath or wheezing) Qty: 8.5 0RF tramadol 50 mg tablet 50 - 100 mg PO Q6H PRN (Reason: Pain) Vitamin C 500 mg Tablet 500 mg PO DAILY podofilox 0.5 % solution 1 applic TOPICAL .THREE TIMES A WEEK Aleve 220 mg Tablet 220 mg PO Q12H PRN (Reason: Pain) omeprazole 20 mg capsule,delayed release(DR/EC) 20 mg PO BID zinc 50 mg Tablet 50 mg PO DAILY Vitamin B-12 1 tab PO DAILY Vitamin D3 1 cap PO DAILY Discharge Orders: Discharge ED (Routine); Ordered 01/16/23 Ordered By: Chris Encarnacion Referrals: Sunny Botello [Primary Care Provider] - Discharge Diet: Usual diet Discharge Activity: Increase activity as tolerated Patient Instructions: Costochondritis (ED) Activity Restrictions/Additional Instructions: Increase activity as tolerated. Use ice or heat for further pain relief. Use Tylenol and ibuprofen to control pain. Use hydrocodone for severe pain. Follow-up with primary care for further recommendations. Return to ED for worsening symptoms such as fever greater than 100.4, increasing shortness of breath, or new concerns. Coding Level of Care Code ED Nurse Aide Evaluator for Leidy Agosto
[2023-01-16] MEDS: HYDROcodone-acetaminophen 7.5-325 mg Tablet 1 TAB PO (21:29)
== END 2023-01-16 21:31 | disposition home or self-care (01) ==
PROVIDERS: Emergency Provider Nurse Practitioner Family; PCP Family Medicine
DX: S23.41XA Sprain of ribs, initial encounter (principal); F17.210 Nicotine dependence, cigarettes, uncomplicated; X50.9XXA Other and unspecified overexertion or strenuous movements or postures, initial encounter
CPT/HCPCS: 71101; 99283

== ENCOUNTER 2023-07-05 10:42 | Observation (INO) | payer BC, MEDICAID, SELFPAY ==
[2023-07-05] VITALS (10 sets, daily range): BP systolic 107–145; BP diastolic 67–104; PULSE 89–128; RESP 16–18; TEMP 36.7–37; O2SAT 92–98; BMI 26.6
--- NOTE | 2023-07-05 11:24 | ED_ITS ---
HPI - Abdominal Pain General: Chief Complaint: Abdominal Pain Stated Complaint: low abd pain Time Seen by Provider: 07/05/23 11:07 Source: patient Mode of arrival: ambulatory History of Present Illness: 38-year-old female presents emergency room complaining of worsening abdominal pain. She is not had a bowel movement on the last 24 hours the several days prior to that she only had small mucousy stools nothing solid. She denies any medic easy melena hematemesis coffee-ground emesis no dysuria urgency or frequency. She has a history of previous bowel obstruction was treated earlier this yearconservatively with success. No fevers sweats or chills at home. MD elicited complaint: abdominal pain Onset (ago): week(s) (1) Location: Diffuse and Suprapubic Severity: mild Quality: cramping Exacerbating factors: nothing Relieving factors: nothing Associated Symptoms: Reports poor appetite; Denies chills, coffee ground emesis, dysuria, fever(s), hematemesis, loose stools and melena Review of Systems Const: Denies: fever(s) or chills Card: Denies: chest pain Resp: Denies: dyspnea GI: Denies: abdominal pain, hematemesis, coffee ground emesis or melena : Denies: dysuria, urinary frequency or urinary urgency Musc: Denies: neck pain or back pain Skin/Breast: Denies: rash PFSH ED PFSH: Medical History Chronic nausea Gvrd-Kpuah-Bvvxcts disease Partial small bowel obstruction Small bowel obstruction Surgical History H/O oophorectomy (~2006) Left History of bilateral tubal ligation (~2005) At time of section. History of delivery (~2005) 2001, 2002, and 2005. 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 Last in 2017 S/P endometrial ablation (~03/2019) Performed at [facility]. Status post colonoscopy (10/07/20) Diverticulosis Family History Grandmother Cancer lung Other Diabetes Denies family history of CAD (coronary artery disease) Anesthesia complication Bleeding disorder Social History Smoking and tobacco/nicotine status: current every day tobacco/nicotine user cigarettes Packs smoked per day: 1 [ Other cigarette details: Started age 16.] Alcohol intake: current Alcohol intake frequency: few times a week Alcohol type: hard liquor Substance/Drug Use: never Household members: children Marital status: Single Current occupational status: employed Female Reproductive History: Spontaneous abortions: No Physical Exam Const: GENERAL APPEARANCE: cooperative and comfortable ORIENTATION/CONS CIOUSNESS: Yes awake, Yes oriented to person, Yes oriented to place and Yes oriented to time HENMT: COMMON NORMALS: normocephalic, atraumatic and hearing grossly normal bilaterally HEAD & SCALP: normocephalic and atraumatic Resp: COMMON NORMALS: normal respiratory effort, No retractions, No use of accessory muscles and clear to auscultation bilaterally AUSCULTATION: clear to auscultation bilaterally Cardio: COMMON NORMALS: regular rate, regular rhythm and No murmurs present (Cardio) RATE: regular rate RHYTHM: regular rhythm GI: COMMON NORMALS: No hepatosplenomegaly present AUSCULTATION: Yes Absent bowel sounds PALPATION: Yes Tenderness to palpation present (GI) (Diffuse), No Guarding due to palpation present (GI) and Yes No hepatosplenomegaly present Extremity: COMMON NORMALS: normal to inspection, capillary refill normal, no clubbing, cyanosis or edema, no calf tenderness and no pedal edema Neuro: SENSORIUM/ORIENTATION: Yes oriented to person, Yes oriented to place and Yes oriented to time Skin: COMMON NORMALS: no rashes or lesions noted GENERAL SKIN EXAM: no rashes or lesions noted Course Vital Signs: Vital signs: Vital Signs Temperature 98.0 F 07/05/23 11:06 Pulse Rate 114 H 07/05/23 13:18 Respiratory Rate 18 07/05/23 13:18 Blood Pressure 145/98 07/05/23 13:18 Pulse Oximetry 92 07/05/23 13:18 Oxygen Delivery Me thod Room Air 07/05/23 13:18 MDM - Abdominal Pain Medical Decision Making Labs reviewed. CT shows: Inflammation suggestive of colitis patient significantly hypokalemic. She has had persistent nausea and vomiting. She is still tachycardic despite fluids we will place her on observation continue IV fluids potassium replacement. Medical Records I reviewed the patient's medical records. Lab Data I reviewed the patient's lab results. 07/05/23 11:47 07/05/23 11:47 Labs/Radiology: Laboratory Results WBC 5.56 10^3/uL (3.29-11.43) 07/05/23 11:47 RBC 2.84 10^6/uL (3.85-5.65) L 07/05/23 11:47 Hgb 12.20 g/dL (11.27-16.99) 07/05/23 11:47 Hct 33.6 % (36-47) L 07/05/23 11:47 MCV 118.3 fl (85-98) H 07/05/23 11:47 MCH 43.0 pg (27-33) H 07/05/23 11:47 MCHC 36.3 g/dL (30-55) 07/05/23 11:47 RDW 14.2 % (12.1-15.1) 07/05/23 11:47 Plt Count 193 10^3/cmm (157-399) 07/05/23 11:47 MPV 9.3 fL (7.4-10.4) 07/05/23 11:47 Neut % (Auto) 60.6 % 07/05/23 11:47 Lymph % (Auto) 25.9 % 07/05/23 11:47 [place] % (Auto) 9.0 % 07/05/23 11:47 Eos % (Auto) 3.4 % 07/05/23 11:47 Baso % (Auto) 0.9 % 07/05/23 11:47 Neut # (Auto) 3.37 10^3/uL (1.8-7.7) 07/05/23 11:47 Lymph # (Auto) 1.4 10^3/uL (0.8-4.8) 07/05/23 11:47 [place] # (Auto) 0.5 10^3/uL (0.2-0.9) 07/05/23 11:47 Eos # (Auto) 0.2 10^3/uL (0.0-0.8) 07/05/23 11:47 Baso # (Auto) 0.1 10^3/uL (0.0-0.1) 07/05/23 11:47 Nucleated RBC % (auto) 0 % 07/05/23 11:47 Nucleated RBCs # 0.0 /100WBC 07/05/23 11:47 Sodium 140 mmol/L (136-145) 07/05/23 11:47 Potassium 2.9 mmol/L (3.5-5.1) L 07/05/23 11:47 Chloride 98 mmol/L (98-107) 07/05/23 11:47 Carbon Dioxide 32 mmol/L (22-29) H 07/05/23 11:47 Anion Gap 12.9 (5-19) 07/05/23 11:47 BUN 7 mg/dL (6-20) 07/05/23 11:47 Creatinine 0.5 mg/dL (0.5-0.9) 07/05/23 11:47 GFR Calculation 137.4 mL/min (90-130) H 07/05/23 11:47 Glucose 85 mg/dL (65-115) 07/05/23 11:47 Calculated Osmolality 287 mOsm/kg (285-295) 07/05/23 11:47 Lactic Acid 2.1 mmol/L (0.5-2.2) 07/05/23 11:47 Calcium 8.4 mg/dL (8.5-10.5) L 07/05/23 11:47 Total Bilirubin 0.6 mg/dL (0.15-1.2) 07/05/23 11:47 AST 99 U/L (0-32) H 07/05/23 11:47 ALT 49 U/L (0-33) H 07/05/23 11:47 Alkaline Phosphatase 103 U/L (35-105) 07/05/23 11:47 Total Protein 6.5 g/dL (6.6-8.7) L 07/05/23 11:47 Albumin 4.3 g/dL (3.5-5.2) 07/05/23 11:47 Globulin 2.2 g/dL (1.3-4.6) 07/05/23 11:47 Lipase 57 U/L (13-60) 07/05/23 11:47 Urine Color Yellow (Yellow) 07/05/23 13:36 Urine Appearance Clear (CLEAR) 07/05/23 13:36 Urine pH 7 (5-7) 07/05/23 13:36 Ur Specific [place] 1.010 (1.005-1.030) 07/05/23 13:36 Urine Protein Neg (Negative) 07/05/23 13:36 Urine Glucose (UA) Norm (Normal) 07/05/23 13:36 Urine Ketones Negative (Negative) 07/05/23 13:36 Urine Blood Neg (Negative) 07/05/23 13:36 Urine Nitrate Negative (Negative) 07/05/23 13:36 Urine Bilirubin Neg (Negative) 07/05/23 13:36 Urine Urobilinogen Norm mg/dL (Negative) 07/05/23 13:36 Ur Leukocyte Esterase Negative (Negative) 07/05/23 13:36 All radiology interpretation(s) finalized by discharge Discharge Plan Discharge Patient Disposition: Admitted As Inpatient Admit Provider: Rohan Mason Clinical Impression: Nausea and vomiting, Acute hypokalemia, Colitis Condition: Stable Coding Level of Care Code ED Slot Operations Director for Leidy Agosto
[2023-07-05 11:51] LABS: Basophils # 0.1 10^3/uL (0.0-0.1); Basophils % 0.9 %; Eosinophils # 0.2 10^3/uL (0.0-0.8); Eosinophils % 3.4 %; Hematocrit 33.6 % (36-47); Lymphocytes # 1.4 10^3/uL (0.8-4.8); Lymphocytes % 25.9 %; Mean Corpuscular HGB Conc 36.3 g/dL (30-55); Mean Corpuscular Volume 118.3 fl (85-98); Mean Platelet Volume 9.3 fL (7.4-10.4); Monocytes # 0.5 10^3/uL (0.2-0.9); Neutrophils # 3.37 10^3/uL (1.8-7.7); Neutrophils % 60.6 %; Nucleated Red Blood Cells % 0 %; Platelet Count 193 10^3/cmm (157-399); Red Blood Count 2.84 10^6/uL (3.85-5.65); Red Cell Distribution Width 14.2 % (12.1-15.1); White Blood Count 5.56 10^3/uL (3.29-11.43)
[2023-07-05 12:07] LABS: Lactic Sepsis W/Reflex 2.1 mmol/L (0.5-2.2)
[2023-07-05 12:11] LABS: Alanine Aminotransferase 49 U/L (0-33); Albumin Level 4.3 g/dL (3.5-5.2); Alkaline Phosphatase 103 U/L (35-105); Anion Gap 12.9 (5-19); Aspartate Amino Transferase 99 U/L (0-32); Blood Urea Nitrogen 7 mg/dL (6-20); Calcium 8.4 mg/dL (8.5-10.5); Carbon Dioxide 32 mmol/L (22-29); Chloride 98 mmol/L (98-107); Globulin 2.2 g/dL (1.3-4.6); Glomerular Filtration Rate 137.4 mL/min (90-130); Glucose 85 mg/dL (65-115); Lipase 57 U/L (13-60); Osmolality Calculated 287 mOsm/kg (285-295); Sodium 140 mmol/L (136-145); Total Bilirubin 0.6 mg/dL (0.15-1.2); Total Protein 6.5 g/dL (6.6-8.7)
[2023-07-05 12:14] LABS: Potassium 2.9 mmol/L (3.5-5.1)
--- NOTE | 2023-07-05 12:14 | CT_ITS ---
WS: [id number] CT ABDOMEN AND PELVIS WITH CONTRAST HISTORY: abd pain, 1 week with vomiting. TECHNIQUE: Imaging performed of the abdomen and pelvis with IV contrast. Single phase imaging of the abdomen. Coronal and sagittal reformats are submitted. All CT scans at [facility] use at [facility] one of these dose optimization techniques: automated exposure control; mA and/or kV adjustment per patient size (includes targeted exams where dose is matched to clinical indication); or iterative re construction. IV CONTRAST: Omnipaque 350; 100 mL IV. Oral contrast: Yes. DLP: 506.50 mGy.cm COMPARISON: 02/01/2022, 09/05/2020 Lower thorax: Lung bases are clear. Heart is normal size. No hiatal hernia. Liver/biliary system: Liver is enlarged with scattered hepatic steatosis. Heterogeneous appearance of the liver is probably areas of fatty sparing in steatosis. Low-attenuation mass in the LEFT lobe of liver measures 2.4 x 1.6 cm and has been present since at least 09/05/[address] Very slight incr ease in size since that examination. Gallbladder: Normal. No gallstones or wall thickening. No pericholecystic fluid. Pancreas: Normal size pancreas and pancreatic duct. No adjacent inflammation. Spleen: Normal size spleen. No mass or infarct. Adrenal glands: Normal. Right kidney: Normal. Left kidney: Too small to characterize cortical hypodensities. No mass or obstruction. Aorta: Normal. Lymphadenopathy: None. Free fluid: None. GI tract: Normal stomach. Normal small bowel. Normal appendix. There is diffuse mild submucosal edema with mild mucosal enhancement. This is most significant in the RIGHT colon but also persists in the descending colon towards the rectum. There is no obstructive pattern and no significant pericolonic i nflammation. There are a few scattered diverticula. Abdominal wall: Fat containing umbilical hernia. Pelvis: No free fluid or adenopathy within the pelvis. Bones: Prior LEFT hip arthroplasty. IMPRESSION: 1. Mild diffuse submucosal edema with mucosal enhancement throughout the colon. Most typical for inf ectious colitis. Mild acute exacerbation of ulcerative colitis should be considered. Similar findings but to a lesser extent were present on the CT of 02/01/2022. 2. Hepatic steatosis with stable low-attenuation mass in the LEFT lobe of the liver. This is probabl y a cyst. 3. No free air or ascites. 4. Normal appendix.
[2023-07-05] MEDS: ondansetron 2 mg/ML SDV 2 mL 4 MG IVP (12:16)
[2023-07-05] MEDS: sodium chloride 0.9% 1,000 ML 999 ML IV (12:16)
[2023-07-05] MEDS: iohexol 350 mg/mL 500 mL Btl (per mL) IV (12:23)
[2023-07-05] MEDS: potassium chloride premix 100 ML 25 MEQ IV (12:34)
[2023-07-05 13:36] LABS: Reflex Lactate Order REFLEX LACTIC ORDERD
[2023-07-05 13:50] LABS: Add Urine Microscopic? NO; Charge for UA Resulting for Rev
[2023-07-05 13:55] LABS: Urine Appearance Clear (CLEAR); Urine Color Yellow (Yellow); pH Urine 7 (5-7)
[2023-07-05 13:56] LABS: Bilirubin Urine Neg (Negative); Blood Urine Neg (Negative); Glucose Urine UA Norm (Normal); Ketones Urine Negative (Negative); Leukocyte Esterase Urine Negative (Negative); Nitrate Urine Negative (Negative); Protein Urine Neg (Negative); Urobilinogen Urine Norm (Negative)
--- NOTE | 2023-07-05 15:08 | PM.HP ---
Providers/Chief Complaint Admitting Physician: Rohan Mason MD Primary Care Provider: Sunny Botello Chief Complaint: low abd pain History of Present Illness Domi Charles is a 38 year old female with past medical history of recurrent colitis, small bowel obstruction, previous colonoscopy did not show any sign of microscopic colitis or malignancy present today with chief complaint abdominal cramps, mucous diarrhea and recurrent vomiting. 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 She has not noticed any fever she has not noticed blood in the stool. She drinks 6 shots of hard liquor every day, she smokes as well She takes care of her children and grandchildren, active, works full-time at a gas station Review of Systems Const: Reports: chills Eyes: Denies: change in vision ENMT: Denies: throat pain Card: Denies: chest pain Resp: Denies: dyspnea GI: Reports: abdominal pain, nausea and vomiting : Denies: flank pain Musc: Denies: neck pain Medications/Allergies Home Medications Medication Instructions Recorded Confirmed Last Taken Type tramadol 50 mg tablet 50 - 100 mg PO Q6H PRN Pain 08/11/21 07/05/23 Unknown History albuterol sulfate 90 mcg/actuation 2 puff inhalation Q6H PRN 08/19/21 07/05/23 Unknown Rx aerosol inhaler (ProAir HFA) shortness of breath or wheezing #8.5 grams Vitamin B-12 1 tab PO QAM 02/01/22 07/05/23 07/05/23 History Vitamin D3 1 cap PO QAM 02/01/22 07/05/23 07/05/23 History ascorbic acid (vitamin C) 500 mg 500 mg PO QAM 02/01/22 07/05/23 07/05/23 History tablet (Vitamin C) naproxen sodium 220 mg tablet 220 mg PO Q12H PRN Pain 02/01/22 07/05/23 Unknown History (Aleve) polyethylene glycol 3350 17 4 g PO QAM 07/04/23 07/05/23 07/05/23 History gram/dose oral powder (Miralax) prednisone 10 mg tablet 30 mg PO DAILY 5 days #15 tabs 07/04/23 07/05/23 Unknown Rx multivitamin with minerals-folic 1 tab PO QAM 07/05/23 07/05/23 07/05/23 History acid 80 mcg chewable tablet zinc acetate 50 mg (zinc) capsule 50 mg PO QAM 07/05/23 07/05/23 07/05/23 History Allergies Allergy/AdvReac Type Severity Reaction Status Date / Time No Known Allergies Allergy Verified 07/04/23 17:54 PFSH Acute PFSH: Medical History Chronic nausea Batz-Fmtdq-Aydimqp disease Partial small bowel obstruction Small bowel obstruction Surgical History H/O oophorectomy (~2006) Left History of bilateral tubal ligation (~2005) At time of section. History of delivery (~2005) 2001, 2002, and 2005. 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 Last in 2017 S/P endometrial ablation (~03/2019) Performed at [facility]. Status post colonoscopy (10/07/20) Diverticulosis Family History Grandmother Cancer lung Other Diabetes Denies family history of CAD (coronary artery disease) Anesthesia complication Bleeding disorder Social History Smoking and tobacco/nicotine status: current every day tobacco/nicotine user cigarettes Packs smoked per day: 1 [ Other cigarette details: Started age 16.] Alcohol intake: current Alcohol intake frequency: few times a week Alcohol type: hard liquor Substance/Drug Use: never Household members: children Marital status: Single Current occupational status: employed Female Reproductive History: Spontaneous abortions: No Vitals/I&O/Wt Last Vital Signs Temp 98.0 F 07/05/23 11:06 Pulse 109 H 07/05/23 14:16 Resp 18 07/05/23 14:16 BP 137/104 07/05/23 14:16 Pulse Ox 93 07/05/23 14:16 O2 Del Method Room Air 07/05/23 14:16 Weight last 48 hrs Weight 70.307 kg Physical Exam Narrative: Pleasant cooperative This is 50 Abdomen tender midepigastric region S1, S2 Pleasant cooperative Plan: Nonfocal neuro exam No active signs of dehydration Not in any acute discomfort Data 07/05/23 11:47 07/05/23 11:47 A&P Assessment and plan (1) Nausea and vomiting: (2) Acute hypokalemia: (3) Colitis: (4) Chronic nausea: Plan Colitis Hypokalemia: Repleted, check mag level Start liquid diet Start Zosyn Continue IV fluids Check lipase level Patient drinks alcohol on daily basis Active smoker Previous colonoscopy biopsy did not show any malignancy or microscopic colitis I will hold off on adding steroids at this point Will request autoimmune disease work-up DVT prophylaxis on board Patient is full code Check B12, MPO antibodies Anticoagulant antibodies. Attestations Medical Necessity Statement*: Anticipating discharge within 48 hours Diagnoses Nausea and vomiting R11.2 Acute hypokalemia E87.6 Colitis K52.9 Chronic nausea R11.0
[2023-07-05 15:40] LABS: Lactic Acid level (Lactate) 1.8 mmol/L (0.5-2.2)
[2023-07-05 15:41] LABS: Procalcitonin 0.08 ng/mL (0-0.5)
[2023-07-05] MEDS: sodium chloride 0.9% 1,000 ML 75 ML IV (16:03)
[2023-07-05] MEDS: enoxaparin 40 mg/0.4 mL Syringe SUBCUT (16:04)
[2023-07-05] MEDS: piperacillin-tazobactam 3.375 GM in sodium chloride 0.9% (plus) 50 ML IV (17:30)
[2023-07-05] MEDS: pantoprazole 40 mg SDV IVP (17:30)
[2023-07-05 18:33] LABS: Vitamin B12 515 pg/mL (232-1245)
[2023-07-05] MEDS: acetaminophen 500 mg Tablet PO (21:15)
[2023-07-05] MEDS: nicotine 14 mg Patch 1 PATCH TRANSDERMA (21:15)
[2023-07-06] VITALS: BP 119/78; PULSE 82; RESP 18; TEMP 37; O2SAT 97
[2023-07-06] MEDS: piperacillin-tazobactam 3.375 GM in sodium chloride 0.9% (plus) 50 ML IV ×2 (00:32→08:08)
[2023-07-06 04:22] VITALS: BP 120/60; PULSE 75; RESP 16; TEMP 37; O2SAT 98
--- NOTE | 2023-07-06 04:24 | PC.NURSE ---
went to empty hat that is in bathroom hat was in bathroom floor and i was not able to get an out put but pt said that she has voided in toilet 2x
[2023-07-06 05:06] VITALS: PULSE 100
--- NOTE | 2023-07-06 05:12 | PM.DCS ---
Discharge Providers Date of Admission: 07/05/23 14:02 Date of Discharge: July 06, 2023 Attending Provider at Admission: Rohan Mason MD Attending Provider at Discharge: Rohan Mason MD Primary Care Provider: Sunny Botello Diagnoses at Discharge Discharge Diagnosis (1) Nausea and vomiting: Status: Acute (2) Acute hypokalemia: Status: Acute (3) Colitis: Status: Acute (4) Chronic nausea: Status: Acute Reason for Visit Reason for Visit: low abd pain Hospital Course Hospital Course 38-year-old female, with recurrent history of SBO, enteritis previous colonoscopy did not show any malignancy or microscopic colitis findings, presented with chief complaint of abdominal cramps she has been experiencing the symptoms for the last few months which got worse in last 48 hours, she has been noticing mucus diarrhea, she has not noticed any blood in her stool, she is denying fever. She was put on IV antibiotics Zosyn along IV fluids. Signs of dehydration improved, nausea and vomiting improved as well. She tolerated clear liquid diet. She drinks alcohol on daily basis, she was given thiamine and folic acid. I did career technical counselor patient to follow-up with general surgery for EGD and colonoscopy considering history of recurrent colitis/enteritis. I will discharge patient on Protonix 6 to 8-week regimen I will give her general surgery follow-up. Her electrolytes were replenished during hospitalization. Previous pathology report was reviewed which did not show any sign of microscopic colitis and steroids were not used. No sign of malignancy. No history of GI cancer in the family. Physical Exam Narrative: Awake and alert GCS 15 Pleasant and cooperative S1, S2 Doing well on room air Discharge Data Studies Completed and Pending Completed Studies During Hospitalization Category Date Time Status CT abdomen pelvis w con* [id number] Stat Cat Scan 07/05/23 12:14 Completed Pending at discharge Category Date Time Status SHARRI Profile Custom [[facility] SHARRI Profile] Routine Lab 07/05/23 16:08 Received SHARRI Screen w/ Reflex Routine Lab 07/05/23 16:08 Received Basic Metabolic Panel AM LABS Lab 07/06/23 04:00 Ordered C Reactive Protein AM LABS Lab 07/06/23 04:00 Ordered Complete Blood Count w/Auto AM LABS Lab 07/06/23 04:00 Ordered Comprehensive Metabolic Panel AM LABS Lab 07/06/23 04:00 Ordered Enteric Bacteria [Salmonella / Shigella / Campy] Lab 07/05/23 18:30 Received Routine Gliadin Antibody IgG and IgA Routine Lab 07/05/23 16:08 Received Magnesium AM LABS Lab 07/06/23 04:00 Ordered Myeloperoxidase Antibody (MPO) Routine Lab 07/05/23 16:08 Received PHOS [Phosphorus] AM LABS Lab 07/06/23 04:00 Ordered Laboratory Results WBC 5.56 10^3/uL (3.29-11.43) 07/05/23 11:47 RBC 2.84 10^6/uL (3.85-5.65) L 07/05/23 11:47 Hgb 12.20 g/dL (11.27-16.99) 07/05/23 11:47 Hct 33.6 % (36-47) L 07/05/23 11:47 MCV 118.3 fl (85-98) H 07/05/23 11:47 MCH 43.0 pg (27-33) H 07/05/23 11:47 MCHC 36.3 g/dL (30-55) 07/05/23 11:47 RDW 14.2 % (12.1-15.1) 07/05/23 11:47 Plt Count 193 10^3/cmm (157-399) 07/05/23 11:47 MPV 9.3 fL (7.4-10.4) 07/05/23 11:47 Neut % (Auto) 60.6 % 07/05/23 11:47 Lymph % (Auto) 25.9 % 07/05/23 11:47 Armstrong % (Auto) 9.0 % 07/05/23 11:47 Eos % (Auto) 3.4 % 07/05/23 11:47 Baso % (Auto) 0.9 % 07/05/23 11:47 Neut # (Auto) 3.37 10^3/uL (1.8-7.7) 07/05/23 11:47 Lymph # (Auto) 1.4 10^3/uL (0.8-4.8) 07/05/23 11:47 Armstrong # (Auto) 0.5 10^3/uL (0.2-0.9) 07/05/23 11:47 Eos # (Auto) 0.2 10^3/uL (0.0-0.8) 07/05/23 11:47 Baso # (Auto) 0.1 10^3/uL (0.0-0.1) 07/05/23 11:47 Nucleated RBC % (auto) 0 % 07/05/23 11:47 Nucleated RBCs # 0.0 /100WBC 07/05/23 11:47 Sodium 140 mmol/L (136-145) 07/05/23 11:47 Potassium 2.9 mmol/L (3.5-5.1) L 07/05/23 11:47 Chloride 98 mmol/L (98-107) 07/05/23 11:47 Carbon Dioxide 32 mmol/L (22-29) H 07/05/23 11:47 Anion Gap 12.9 (5-19) 07/05/23 11:47 BUN 7 mg/dL (6-20) 07/05/23 11:47 Creatinine 0.5 mg/dL (0.5-0.9) 07/05/23 11:47 GFR Calculation 137.4 mL/min (90-130) H 07/05/23 11:47 Glucose 85 mg/dL (65-115) 07/05/23 11:47 Calculated Osmolality 287 mOsm/kg (285-295) 07/05/23 11:47 Lactic Acid 2.1 mmol/L (0.5-2.2) 07/05/23 11:47 Lactic Acid (Sepsis) 1.8 mmol/L (0.5-2.2) 07/05/23 15:08 Calcium 8.4 mg/dL (8.5-10.5) L 07/05/23 11:47 Total Bilirubin 0.6 mg/dL (0.15-1.2) 07/05/23 11:47 AST 99 U/L (0-32) H 07/05/23 11:47 ALT 49 U/L (0-33) H 07/05/23 11:47 Alkaline Phosphatase 103 U/L (35-105) 07/05/23 11:47 Total Protein 6.5 g/dL (6.6-8.7) L 07/05/23 11:47 Albumin 4.3 g/dL (3.5-5.2) 07/05/23 11:47 Globulin 2.2 g/dL (1.3-4.6) 07/05/23 11:47 Lipase 57 U/L (13-60) 07/05/23 11:47 Vitamin B12 515 pg/mL (232-1245) 07/05/23 11:47 Procalcitonin 0.08 ng/mL (0-0.5) 07/05/23 11:47 Urine Color Yellow (Yellow) 07/05/23 13:36 Urine Appearance Clear (CLEAR) 07/05/23 13:36 Urine pH 7 (5-7) 07/05/23 13:36 Ur Specific [place] 1.010 (1.005-1.030) 07/05/23 13:36 Urine Protein Neg (Negative) 07/05/23 13:36 Urine Glucose (UA) Norm (Normal) 07/05/23 13:36 Urine Ketones Negative (Negative) 07/05/23 13:36 Urine Blood Neg (Negative) 07/05/23 13:36 Urine Nitrate Negative (Negative) 07/05/23 13:36 Urine Bilirubin Neg (Negative) 07/05/23 13:36 Urine Urobilinogen Norm mg/dL (Negative) 07/05/23 13:36 Ur Leukocyte Esterase Negative (Negative) 07/05/23 13:36 Vitals Last Vital Signs Temp 98.6 F 07/06/23 04:22 Pulse 100 07/06/23 05:06 Resp 16 07/06/23 04:22 BP 120/60 07/06/23 04:22 Pulse Ox 98 07/06/23 04:22 O2 Del Method Room Air 07/05/23 19:59 Discharge Plan Discharge Patient Disposition: Home Condition: Stable Prescriptions: New potassium chloride [Klor-Con M20] 20 mEq Tablet,Er Particles/Crystals 40 meq PO DAILY Qty: 10 0RF ciprofloxacin HCl 500 mg tablet 500 mg PO BID Qty: 14 0RF metronidazole 500 mg tablet 500 mg PO Q8H 7 Days Qty: 21 0RF thiamine HCl (vitamin B1) 100 mg tablet 100 mg PO DAILY Qty: 30 0RF Continued albuterol sulfate [ProAir HFA] 90 mcg/actuation HFA aerosol inhaler 2 puff inhalation Q6H PRN (Reason: shortness of breath or wheezing) Qty: 8.5 0RF tramadol 50 mg tablet 50 - 100 mg PO Q6H PRN (Reason: Pain) polyethylene glycol 3350 [Miralax] 17 gram/dose powder 4 g PO QAM prednisone 10 mg tablet 30 mg PO DAILY 5 Days Qty: 15 0RF Rx Instructions: Take 3 tabs in the morning for 5 days. ascorbic acid (vitamin C) [Vitamin C] 500 mg Tablet 500 mg PO QAM Vitamin B-12 1 tab PO QAM Vitamin D3 1 cap PO QAM zinc acetate 50 mg (zinc) Capsule 50 mg PO QAM Centrum MultiGummies 80 mcg Tablet,Chewable 1 tab PO QAM Discontinued naproxen sodium [Aleve] 220 mg Tablet 220 mg PO Q12H PRN (Reason: Pain) Referrals: Sunny Botello [Primary Care Provider] - Patient Instructions: Opioid Safety Discharge Attestations Time Spent in Discharge Care*: greater than 30 min Quality Metrics Clinical Quality Measures [ No reported AMI, CVA or VTE this stay] Coding Level of Care Code Acute Code for Chg Fwd Diagnoses Nausea and vomiting R11.2 Acute hypokalemia E87.6 Colitis K52.9 Chronic nausea R11.0
[2023-07-06] MEDS: sodium chloride 0.9% 1,000 ML 75 ML IV (05:25)
[2023-07-06 05:42] LABS: Basophils % 0.5 %; Eosinophils # 0.3 10^3/uL (0.0-0.8); Hematocrit 30.5 % (36-47); Lymphocytes % 35.7 %; Mean Corpuscular HGB Conc 34.8 g/dL (30-55); Mean Corpuscular Hemoglobin 42.7 pg (27-33); Mean Platelet Volume 9.6 fL (7.4-10.4); Monocytes # 0.5 10^3/uL (0.2-0.9); Monocytes % 8.4 %; Neutrophils # 2.68 10^3/uL (1.8-7.7); Neutrophils % 49.2 %; Nucleated Red Blood Cells % 0 %; Platelet Count 169 10^3/cmm (157-399); Red Blood Count 2.48 10^6/uL (3.85-5.65); Red Cell Distribution Width 14.1 % (12.1-15.1); White Blood Count 5.46 10^3/uL (3.29-11.43)
[2023-07-06 06:07] LABS: Alanine Aminotransferase 48 U/L (0-33); Albumin Level 3.3 g/dL (3.5-5.2); Alkaline Phosphatase 82 U/L (35-105); Anion Gap 10.4 (5-19); Aspartate Amino Transferase 119 U/L (0-32); Blood Urea Nitrogen 5 mg/dL (6-20); Calcium 7.2 mg/dL (8.5-10.5); Carbon Dioxide 28 mmol/L (22-29); Chloride 106 mmol/L (98-107); Glomerular Filtration Rate 111.3 mL/min (90-130); Glucose 107 mg/dL (65-115); Osmolality Calculated 290 mOsm/kg (285-295); Phosphorus 3.2 mg/dL (2.5-4.5); Potassium 3.4 mmol/L (3.5-5.1); Sodium 141 mmol/L (136-145); Total Bilirubin 0.9 mg/dL (0.15-1.2); Total Protein 5.3 g/dL (6.6-8.7)
[2023-07-06 07:53] VITALS: BP 122/73; PULSE 101; RESP 17; TEMP 36.5; O2SAT 96
[2023-07-06] MEDS: acetaminophen 500 mg Tablet PO (08:07)
[2023-07-06] MEDS: potassium chloride ER 20 mEq Tablet 40 MEQ PO (08:08)
[2023-07-06] MEDS: pantoprazole 40 mg SDV IVP (08:39)
--- NOTE | 2023-07-06 08:56 | PM.PN ---
Subjective Subjective: Patient woke up this morning with abdominal cramps, no fever, no active nausea vomiting Patient is stating that she noticed specks of blood in her stool Vitals/I&O/Wt Last Vital Signs Temp 97.7 F 07/06/23 07:53 Pulse 101 H 07/06/23 07:53 Resp 17 07/06/23 07:53 BP 122/73 07/06/23 07:53 Pulse Ox 96 07/06/23 07:53 O2 Del Method Room Air 07/06/23 07:53 07/05/23 07/06/23 07/06/23 22:59 06:59 14:59 Intake Total 1390 / 1390 1170 / 2560 720 / 720 Output Total 350 / 350 Balance 1040 / 1040 1170 / 2210 720 / 720 Weight last 48 hrs Weight 70.307 kg Physical Exam Narrative: Done exam mild tender on deep palpation otherwise soft, benign no signs of peritonitis Signs of dehydration improving Currently on IV antibiotics and IV fluids Tolerating diet Sitting in her bed Nonfocal neuro exam Currently on room air Data 07/06/23 05:12 07/06/23 05:12 A&P Assessment and plan (1) Nausea and vomiting: (2) Acute hypokalemia: (3) Colitis: (4) Chronic nausea: Plan Colitis Patient may benefit from colonoscopy and biopsy outpatient Previous biopsy did not show any send malignancy Afebrile Continue IV fluids and antibiotics I would like to monitor patient 1 more day with IV fluids Advance diet to mechanical soft Full code DVT prophylaxis on board Drop in hemoglobin noted from 12-10.6 which could be dilutional I do not see any signs of hypotension Attestations Medical Necessity Statement*: Possible discharge tomorrow Diagnoses Nausea and vomiting R11.2 Acute hypokalemia E87.6 Colitis K52.9 Chronic nausea R11.0
[2023-07-06 09:03] VITALS: PULSE 100; RESP 16; O2SAT 99
--- NOTE | 2023-07-06 09:22 | PC.CHAP ---
Pastoral Care Encounter/Spiritual Assessment Type of Contact [] Declined water taxi captain visit [] Patient/Family/Request visit [] Outpatient visit [] Follow-up visit [] Physician referral [] Code/Alert [x] Routine visit [] Staff referral [] Actively dying [] Patient sleeping [] Family support [] [] Out of room [] Palliative care [] [] Receiving care in room [] Pre-surgical visit [] Trauma [] Long length of stay [] ICU visit [] Other: Relational/Emotional Strength [x] Patient feels connected with others/family/visitors/staff [] Distress [] Loneliness/isolation [] Abandonment Spirituality of Patient [x] Person of Sheila [] Attends Zoroastrianism of their Sheila [x] Believes in Prayer [] Reads Bible or Congregation materials [] There are Spiritual issues to be addressed Excavating Supervisor Interventions [x] Prayer [x] Active listening [] Non-anxious presence [x] Spiritual/emotional support [] Crisis/trauma care [] Spiritual counseling [] Bereavement support [] Provided bereavement packet [] Provided Bible/devotional materials [] Provided toy/stuffed animal, coloring book to patient or family member [] Provided Communion [] Anointing/[place] [] Salvation [x] Completed spiritual assessment [] Other: Impact on Illness or Injury [] Angry [] Fearful [] Anxious [] Often cries [] Exhaustion [] Unable to work [] Unable to attend alevism [] Unable to walk/stand [] Unable to read [] Unable to drive [] Unable to eat/drink [] Unable to sleep [] Unable to be with family [] Patient intubated [] Other: Summary Time spent with patient 5 min
[2023-07-06 12:55] VITALS: PULSE 100; RESP 16; O2SAT 99
[2023-07-06 15:09] LABS: Anti-Double Strand DNA AB <1 IU/mL; Jo-1 Antibody <1.0 NEG AI (<1.0 NEG); Myeloperoxidase Antibody <1.0 AI; SM/RNP Antibodies <1.0 NEG AI (<1.0 NEG); SS-B/LA IGG <1.0 NEG AI (<1.0 NEG); Scleroderma Ab(Scl-70) Ab <1.0 NEG AI (<1.0 NEG); Ss-A/Ro Igg <1.0 NEG AI (<1.0 NEG)
[2023-07-09 12:04] LABS: Anti-Nuclear Antibody Screen POSITIVE (NEGATIVE)
--- NOTE | 2023-07-16 09:38 | PC.SOCIAL ---
Spoke with patient about GI Referral. She chose for referral to be sent to [facility]. Referral faxed at this time. [facility] phone number provided to patient for followup.
== END 2023-07-06 12:56 | disposition home or self-care (01) ==
LOC: ER 11:26 → MEDSURG 14:08
PROVIDERS: Admitting Provider Internal Medicine; Emergency Provider Family Medicine; PCP Family Medicine; Visit Provider Internal Medicine
DX: R11.2 Nausea with vomiting, unspecified (principal); E87.6 Hypokalemia; K52.9 Noninfective gastroenteritis and colitis, unspecified; R11.0 Nausea; F17.210 Nicotine dependence, cigarettes, uncomplicated; K76.0 Fatty (change of) liver, not elsewhere classified
CPT/HCPCS: 36415; 74177; 80048; 80053; 81003; 82607; 83516; 83605; 83690; 83735; 84100; 84145; 85025; 86021; 86038; 86140; 86225; 86235; 87045; 87427; 87449; 96361; 96365; 96366; 96367; 96372; 96375; 99285; C9113; G0378; J1650; J2405; J2543; J3411; J3480; J7030; Q3014; Q9967

== ENCOUNTER 2023-08-15 09:23 | Day surgery (SDC) | payer BC, MEDICAID, SELFPAY ==
[2023-08-15 09:35] VITALS: BP 149/88; PULSE 105; RESP 18; TEMP 36.1; O2SAT 95; BMI 27.4
[2023-08-15] MEDS: sodium chloride 0.9% 1,000 ML 30 ML IV (09:42)
--- NOTE | 2023-08-15 09:56 | P.ANESASSM_ITS ---
Pre-Anesthetic Assessment Height/Weight: Height 1.57 m Weight 68.039 kg Temp Pulse Resp BP Pulse Ox O2 Del Method 97.0 F L 105 H 18 149/88 95 Room Air 08/15/23 09:35 08/15/23 09:35 08/15/23 09:35 08/15/23 09:35 08/15/23 09:35 08/15/23 09:35 Preop Diagnosis: screening Operation Date: 08/15/23 10:30 Proposed Procedures p 61802 egd 14864 colon G0121 screen colon A risk K52.9,K21.9,R11.2,R10.9(Not Applicable) - Kanu Dillon DO s Colonoscopy(Not Applicable) - Kanu Dillon DO Was Beta Barbi taken within 24 hours: N/A Last intake: Intake Last Liquid Date 08/14/23 Last Liquid Time 22:00 Last Solid Date 08/13/23 Last Solid Time 15:00 Social Tobacco 1 pack(s) per day 20plus pack years Exam alert and oriented x 3 Airway Submandibular: within normal limits Cervical ROM: within normal limits Mallampati: Class II Dentition: false (uppers) History/ROS No significant history except as noted Pulmonary Chronic Obstructive Pulmonary Disease CV/HEM None reported None reported Hepatic None reported GI Gastroesophageal Reflux Disease Metabolic None reported Musc/skel Lower Back Pain Neuropsych None reported Anesthetic Plan ASA status: 2 Anesthesia: MAC Medications/Allergies Home Medications Medication Instructions Recorded Confirmed Last Taken Type tramadol 50 mg tablet 50 - 100 mg PO Q6H PRN Pain 08/11/21 08/15/23 Unknown History albuterol sulfate 90 mcg/actuation 2 puff inhalation Q6H PRN 08/19/21 08/15/23 08/14/23 Rx aerosol inhaler (ProAir HFA) shortness of breath or wheezing #8.5 grams multivitamin with minerals-folic 1 tab PO QAM 07/05/23 08/15/23 08/14/23 History acid 80 mcg chewable tablet pantoprazole 40 mg tablet,delayed 40 mg PO DAILY 6 weeks #45 tabs 07/06/23 08/15/23 08/14/23 Rx release (Protonix) dicyclomine 10 mg capsule 10 mg PO BID 07/31/23 08/15/23 08/14/23 History magnesium 500 mg tablet 15 mg PO DAILY 08/13/23 08/15/23 08/14/23 History Allergies Allergy/AdvReac Type Severity Reaction Status Date / Time No Known Allergies Allergy Verified 08/15/23 09:33 Current Medications Generic Name Dose Route Start Last Admin Trade Name Moris PRN Reason Stop Dose Admin Sodium Chloride 1,000 mls @ 30 mls/hr 08/15/23 09:30 08/15/23 09:42 Sodium Chloride 0.9% IV 08/16/23 09:29 30 mls/hr .Q24H ABELARDO Administration PFSH Anesthesia Medical History Acute hypokalemia Chronic nausea Colitis Qhun-Awenx-Zslzeni disease Nausea and vomiting Partial small bowel obstruction Small bowel obstruction Surgical History H/O oophorectomy (~2006) Left History of bilateral tubal ligation (~2005) At time of section. History of delivery (~2005) 2001, 2002, and 2005. 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 Last in 2017 S/P endometrial ablation (~03/2019) Performed at [facility]. Status post colonoscopy (10/07/20) Diverticulosis Family History Grandmother Cancer lung Other Diabetes Denies family history of CAD (coronary artery disease) Anesthesia complication Bleeding disorder Social History Smoking and tobacco/nicotine status: current every day tobacco/nicotine user cigarettes Packs smoked per day: 1 [ Other cigarette details: Started age 16.] Alcohol intake: current Alcohol intake frequency: few times a week Alcohol type: hard liquor Substance/Drug Use: never Household members: children Marital status: Single Current occupational status: employed Female Reproductive History Spontaneous abortions: No Data Anesthesia Cardiac Studies: No Data to Display
--- NOTE | 2023-08-15 10:07 | W.PM.OPSUD ---
Surgery/Procedure H&P Update DATE OF PROCEDURE: August 15, 2023 DATE H&P PERFORMED: 07/31/23 H&P UPDATE INFORMATION: I have reviewed H&P completed within last 30 days, I have examined patient prior to procedure and No changes to prior documentation PREOP DIAGNOSIS: screening PLANNED PROCEDURE: Operation Date: 08/15/23 10:30 Proposed Procedures p 34559 egd 21006 colon G0121 screen colon A risk K52.9,K21.9,R11.2,R10.9(Not Applicable) - DO marisabel Montenegro Colonoscopy(Not Applicable) - Kanu Dillon DO
[2023-08-15 10:34] VITALS: BP 102/67; PULSE 105; RESP 14; TEMP 36.1; O2SAT 97
[2023-08-15 10:50] VITALS: BP 130/86; PULSE 101; RESP 16; O2SAT 98
--- NOTE | 2023-08-15 12:26 | ANE.PACU2 ---
Inpatient post-anesthesia follow up: Airway intact: Yes Vital signs: Temperature 97.0 F Pulse Rate 101 Respiratory Rate 16 Blood Pressure 130/86 Pulse Oximetry 98 Oxygen Delivery Me thod Room Air Oxygen Flow Rate Fraction of Inspir ed Oxygen Hydration adequate: Yes Nausea and vomiting: No Pain level: 2 Mental status: Baseline
[2023-08-16 15:49] LABS: Clostridium Difficile PCR NOT DETECTED (NOT DETECTED)
== END 2023-08-15 11:08 | disposition home or self-care (01) ==
PROVIDERS: PCP Family Medicine; Visit Provider Surgery
PROC: 0DJ08ZZ Inspection of Upper Intestinal Tract, Via Natural or Artificial Opening Endoscopic (ICD-10-PCS; CPT 43235; principal; 2023-08-15 10:30)
PROC: 0DJD8ZZ Inspection of Lower Intestinal Tract, Via Natural or Artificial Opening Endoscopic (ICD-10-PCS; CPT 45378; 2023-08-15 10:30)
DX: K52.9 Noninfective gastroenteritis and colitis, unspecified (principal); K21.9 Gastro-esophageal reflux disease without esophagitis; R11.2 Nausea with vomiting, unspecified; R10.9 Unspecified abdominal pain; K57.30 Diverticulosis of large intestine without perforation or abscess without bleeding; K29.50 Unspecified chronic gastritis without bleeding; J44.9 Chronic obstructive pulmonary disease, unspecified; F17.210 Nicotine dependence, cigarettes, uncomplicated
CPT/HCPCS: 43239; 45380; 82274; 83630; 87045; 87177; 87209; 87427; 87449; 87493; 88305; 88342; J2704; J3010; J7030

== ENCOUNTER 2023-08-27 07:20 | Outpatient (CLI) | payer BC, MEDICAID, SELFPAY ==
--- NOTE | 2023-08-27 07:45 | US_ITS ---
WS: [id number] RIGHT UPPER QUADRANT ULTRASOUND HISTORY: abdominal pain COMPARISON: 09/02/2020 Liver: 17.8 cm in length. Liver has minimally increased in size since the prior study. Increasing coa rse echotexture and hepatic steatosis throughout the liver. No mass or bile duct dilatation. Portal Vein: Normal hepatopetal flow with monophasic waveform. Gallbladder: Normally distended gallbladder with no stones or wall thickening. CBD: 0.5 cm Pancreas: Poorly visualized. Right kidney: 9.2 cm in length. Normal size and echogenicity. No hydronephrosis or mass. Aorta and IVC: Unremarkable abdominal aorta and IVC. No ascites. IMPRESSION: 1. Normal gallbladder. 2. Mild increase in size and hepatic steatosis of the liver since 09/02/2020. No mass.
== END 2023-08-27 07:21 | disposition home or self-care (01) ==
LOC: RAD 07:20
PROVIDERS: PCP Family Medicine; Visit Provider Surgery
DX: R10.9 Unspecified abdominal pain (principal); K76.0 Fatty (change of) liver, not elsewhere classified
CPT/HCPCS: 76705

== ENCOUNTER 2024-11-13 12:31 | Outpatient (CLI) | payer SELFPAY ==
--- NOTE | 2024-11-13 12:41 | XR_ITS ---
WS: [id number] Exam: XR ribs RT 2V* [id number] Date/Time of Exam: 11/13/2024 12:52 PM Reason For Exam: R07.81 - Pleurodynia No RIGHT rib fracture noted. The lungs are bilaterally clear and fully expanded. Normal cardiomediastinal silhouette. No pleural or pulmonary reactive changes. XR/XR ribs RT 2V* [id number] IMPRESSION: 1. No RIGHT rib fracture. 2. No acute cardiopulmonary finding.
== END 2024-11-13 12:32 | disposition home or self-care (01) ==
PROVIDERS: PCP Nurse Practitioner; Visit Provider Nurse Practitioner
DX: R07.81 Pleurodynia (principal)
CPT/HCPCS: 71100

== ENCOUNTER 2025-07-02 16:06 | Emergency (ER) | payer SELFPAY ==
[2025-07-02 16:24] VITALS: BP 127/86; PULSE 106; RESP 16; TEMP 36.7; O2SAT 94
--- NOTE | 2025-07-02 16:28 | ECG_ITS ---
[facility] Date: 2025-07-02 Pat Name: Domi Charles Department: Room: Gender: Female Blank Driller: : 1985 Requested By: Ene Jurado Order Number: [id number] Robyn MD: ABRAHAM LUCERO Measurements Intervals [place] Rate: 104 P: 49 DC: 131 QRS: 63 QRSD: 79 T: 58 QT: 347 QTc: 458 Interpretive Statements SINUS TACHYCARDIA ABNORMAL RHYTHM ECG No previous ECG available for comparison Electronically Signed On 07-05-2025 23:25:03 CDT by ABRAHAM LUCERO [email or web address] [id number]
--- NOTE | 2025-07-02 16:48 | XRR_ITS ---
PROCEDURE INFORMATION: Exam: XR Chest Exam date and time: 07/02/2025 5:17 PM Age: 40 years old Clinical indication: Other: Weakness TECHNIQUE: Imaging protocol: Radiologic exam of the chest. Views: 1 view. COMPARISON: CR XR ribs LT mn 3V w CXR1V [id number] 01/16/2023 7:14 PM FINDINGS: Lungs: Unremarkable. No consolidation. Pleural spaces: Unremarkable. No pleural effusion. No pneumothorax. Heart/Mediastinum: Unremarkable. No cardiomegaly. Bones/joints: Unremarkable. XR/XR chest 1V portable [id number] IMPRESSION: No acute findings.
--- NOTE | 2025-07-02 16:48 | CTR_ITS ---
PROCEDURE INFORMATION: Exam: CT Head Without Contrast Exam date and time: 07/02/2025 5:30 PM Age: 40 years old Clinical indication: Altered mental status/memory loss; Patient daughter reports patient fell at home yesterday at unknown time and was down for unknown time. Patient was found at 3pm in the floor by coworker. Patient was altered and unable to answer questions; Additional info: Encephalopathy, altered mental status TECHNIQUE: Imaging protocol: Computed tomography of the head without contrast. Radiation optimization: All CT scans at this facility use at least one of these dose optimization techniques: automated exposure control; mA and/or kV adjustment per patient size (includes targeted exams where dose is matched to clinical indication); or iterative reconstruction. COMPARISON: No relevant prior studies available. RADIATION DOSE METRICS: Total DLP (mGy-cm): 1081.88 FINDINGS: Brain: Normal. No hemorrhage. Unremarkable white matter. No mass effect. Cerebral ventricles: No ventriculomegaly. Paranasal sinuses: Visualized sinuses are unremarkable. No fluid levels. Mastoid air cells: Visualized mastoid air cells are well aerated. Bones: Unremarkable. No acute fracture. Soft tissues: Unremarkable. CT/CT head wo con* [id number] IMPRESSION: No acute intracranial abnormality.
--- NOTE | 2025-07-02 16:49 | ED_ITS ---
HPI - Fall 2 General: Chief Complaint: Fall Stated Complaint: Stroke Like Symtoms Slurring Time Seen by Provider: 07/02/25 16:45 History of Present Illness: 40-year-old female with no known medical problems other than obesity who presents emergency room with complaints of altered mental status. She says she feels foggy or like a spacey today. She says she went to [facility] yesterday by ambulance and she feels like they did not answer any of her questions. They told her her potassium was low and her blood pressure was high. She continues to feel this way today. She answers all questions appropriately but sometimes is a little slow to answer. She is alert and oriented. No focal motor deficits. No fevers. No chest pain. No abdominal pain. No nausea or vomiting. She had fell the day before and was found on the floor by coworker they were not sure how long she was down. When they found her she was unable to answer questions. She says she feels foggy still today but not like she did yesterday Related Data Home Medications ?Medication ?Instructions ?Recorded ?Confirmed tramadol 50 mg tablet 50 - 100 mg PO Q6H PRN Pain 08/11/21 11/13/24 multivitamin with minerals-folic 1 tab PO QAM 07/05/23 11/13/24 acid 80 mcg chewable tablet magnesium 500 mg tablet 15 mg PO DAILY 08/13/2310/26 Previous Rx's ?Medication ?Instructions ?Recorded albuterol sulfate 90 mcg/actuation 2 puff inhalation Q 6H PRN 08/19/21 aerosol inhaler (ProAir HFA) shortness of breath or wh eezing #8.5 grams naproxen 500 mg tablet 500 mg PO BID PRN pain #20 t abs 11/13/24 tizanidine 2 mg tablet 2 mg PO DAILY PRN muscle spasticity #7 tabs Allergies Allergy/AdvReac Type Severity Reaction Status Date / Time No Known Allergies Allergy Verified 11/13/24 11:10 Review of Systems 2 Narrative: Constitutional symptoms: Negative except as documented in HPI. Skin symptoms: Negative except as documented in HPI. Eye symptoms: Negative except as documented in HPI. ENMT symptoms: Negative except as documented in HPI. Respiratory symptoms: Negative except as documented in HPI. Cardiovascular symptoms: Negative except as documented in HPI. Gastrointestinal symptoms: Negative except as documented in HPI. Genitourinary symptoms: Negative except as documented in HPI. Musculoskeletal symptoms: Negative except as documented in HPI. Neurologic symptoms: Negative except as documented in HPI. Psychiatric symptoms: Negative except as documented in HPI. Endocrine symptoms: Negative except as documented in HPI. [facility] ED 2 PFS: Medical History (Updated 07/02/25 @ 19:00 by Ene Eugene MD) Colitis Acute hypokalemia Nausea and vomiting Partial small bowel obstruction Chronic nausea Vdoo-Zwbnr-Cwpgogr disease Small bowel obstruction Surgical History History of esophagogastroduodenoscopy (EGD) S/P endometrial ablation (~03/2019) Performed at [facility]. History of bilateral tubal ligation (~2005) At time of section. Status post colonoscopy (10/07/20) Diverticulosis History of hip replacement, total (~2016) x 3. Last in 2016 H/O oophorectomy (~2006) Left History of delivery (~2005) 2001, 2002, and 2005. Family History Grandmother Cancer lung Other Diabetes Denies family history of CAD (coronary artery disease) Anesthesia complication Bleeding disorder Social History Smoking and tobacco/nicotine status: current every day tobacco/nicotine user cigarettes Packs smoked per day: 1 [ Other cigarette details: Started age 16.] Alcohol intake: current Alcohol intake frequency: few times a week Alcohol type: hard liquor Substance/Drug Use: never Household members: children Marital status: Single Current occupational status: employed Female Reproductive History: Spontaneous abortions: No Physical Exam 2 Narrative: EXAM NARRATIVE: General: Alert, no acute distress. Skin: Warm, dry. Head: Normocephalic, atraumatic. Neck: Supple, trachea midline. Eye: Extraocular movements are intact. Ears, nose, mouth and throat: mucosa moist. Cardiovascular: Regular, Normal peripheral perfusion. Respiratory: Lungs are clear to auscultation, respirations are non-labored, breath sounds are equal, Symmetrical chest wall expansion. Gastrointestinal: Soft, Nontender, Non distended Musculoskeletal: Normal ROM, no deformity. Neurological: Alert and oriented, No focal neurological deficit observed. Psychiatric: Cooperative, appropriate mood & affect. Course 2 Vital Signs: Vital signs: Vital Signs Temperature 98.0 F 07/02/25 16:24 Pulse Rate 103 H 07/02/25 19:17 Respiratory Rate 16 07/02/25 16:24 Blood Pressure 155/101 07/02/25 19:17 Pulse Oximetry 96 07/02/25 19:17 Oxygen Delivery Me thod Room Air 07/02/25 17:17 MDM - Fall Medical Decision Making Medical decision making: Differential diagnosis including but not limited to and based on the above HPI, review of systems and physical exam: In this patient with altered mental status: Stroke. Hypoglycemia. Metabolic encephalopathy. Infections such as pneumonia, urinary tract infection, Covid-19, Influenza. Electrolyte abnormalities such as hypernatremia. Renal failure / uremia. Hepatic encephalopathy. Hypoxemia. Hypercapnic respiratory failure. Psychosis. Drug or alcohol intoxication. Medication overdose. Orders placed to evaluate differential diagnosis based on the above differential, HPI and physical exam EKG: Time 1628. Rate 104. Sinus tachycardia, No ST-T changes, no ectopy, normal [place] & QRS intervals, This was reviewed and interpreted by myself the ER physician at 1632 Chest x-ray: No acute process. No infiltrate. No pneumothorax. This was reviewed and interpreted by myself the emergency room physician. I also reviewed the radiology report. CT head: No acute intracranial process. No intracranial hemorrhage, no evidence of infarct. No evidence of acute fracture. This was reviewed and interpreted by myself the emergency room physician. I also reviewed the radiology report. Lab Review: Laboratory results were reviewed and interpreted by myself the emergency room physician. No leukocytosis. No anemia. No renal failure. Blood alcohol level is 14 but the patient denies having any recent alcohol use. Urinalysis negative for infection I reviewed the patient's medical record. Reexamination: Patient remained stable. No increased work of breathing. No altered mental status. No focal motor deficits. Assessment and plan: Altered mental status - Discharged home - Discussed plan with patient. Answered any questions. - Evaluation and treatment of this problem were appropriate in the emergency setting. Lab Data 07/02/25 16:53 07/02/25 16:53 Radiology Impressions Chest X-Ray 07/02/25 16:48 IMPRESSION: No acute findings. Head CT 07/02/25 16:48 IMPRESSION: No acute intracranial abnormality. Laboratory Results WBC 5.56 10^3/uL (3.29-11.43) 07/02/25 16:53 RBC 3.04 10^6/uL (3.85-5.65) L 07/02/25 16:53 Hgb 12.70 g/dL (11.27-16.99) 07/02/25 16:53 Hct 35.3 % (36-47) L 07/02/25 16:53 MCV 116.1 fl (85-98) H 07/02/25 16:53 MCH 41.8 pg (27-33) H 07/02/25 16:53 MCHC 36.0 g/dL (30-55) 07/02/25 16:53 RDW 16.9 % (12.1-15.1) H 07/02/25 16:53 Plt Count 322 10^3/cmm (157-399) 07/02/25 16:53 MPV 8.4 fL (7.4-10.4) 07/02/25 16:53 Neut % (Auto) 57.8 % 07/02/25 16:53 Lymph % (Auto) 32.6 % 07/02/25 16:53 [place] % (Auto) 6.7 % 07/02/25 16:53 Eos % (Auto) 2.2 % 07/02/25 16:53 Baso % (Auto) 0.5 % 07/02/25 16:53 Neut # (Auto) 3.22 10^3/uL (1.8-7.7) 07/02/25 16:53 Lymph # (Auto) 1.8 10^3/uL (0.8-4.8) 07/02/25 16:53 [place] # (Auto) 0.4 10^3/uL (0.2-0.9) 07/02/25 16:53 Eos # (Auto) 0.1 10^3/uL (0.0-0.8) 07/02/25 16:53 Baso # (Auto) 0.0 10^3/uL (0.0-0.1) 07/02/25 16:53 Nucleated RBC % (auto) 0 % 07/02/25 16:53 Nucleated RBCs # 0.0 /100WBC 07/02/25 16:53 D-Dimer 0.36 ug/mLFEU (0-0.59) 07/02/25 16:53 Specimen Type Arterial 07/02/25 16:59 Sample Site Radial, right 07/02/25 16:59 ABG pH 7.50 (7.35-7.45) H 07/02/25 16:59 ABG pCO2 35.5 mmHg (35-45) 07/02/25 16:59 ABG pO2 95.0 mmHg (80.0-100.0) 07/02/25 16:59 ABG PO2/FiO2 Ratio 452 07/02/25 16:59 ABG HCO3 27.5 mmol/L (22-26) H 07/02/25 16:59 ABG O2 Saturation 98.8 07/02/25 16:59 ABG Base Excess 4.3 mmol/L (-2.0-2.0) H 07/02/25 16:59 Reid Test Pos 07/02/25 16:59 A-a O2 Gradient 1.4 mmHg (5-10) L 07/02/25 16:59 Hematocrit 37.7 % (37-47) 07/02/25 16:59 Hgb O2 Saturation 92.1 % (95-100) L 07/02/25 16:59 Carboxyhemoglobin 6.5 %THgb (0.4-20.1) 07/02/25 16:59 Methemoglobin 0.2 % (0.4-1.5) L 07/02/25 16:59 Total Hemoglobin 12.3 g/dL (12-16) 07/02/25 16:59 Sodium 141.0 mmol/L (131-143) 07/02/25 16:59 Potassium 6.3 mmol/L (3.5-5.0) H 07/02/25 16:59 Glucose 100.0 mg/dL (70-115) 07/02/25 16:59 Ionized Calcium 1.1 mmol/L (1.1-1.4) 07/02/25 16:59 O2 Delivery Device Room air 07/02/25 16:59 FiO2 21.0 % 07/02/25 16:59 Import Coordination And Production Head ID [place] 07/02/25 16:59 Sodium 144 mmol/L (136-145) 07/02/25 16:53 Potassium 3.9 mmol/L (3.5-5.1) 07/02/25 16:53 Chloride 101 mmol/L (98-107) 07/02/25 16:53 Carbon Dioxide 28 mmol/L (22-29) 07/02/25 16:53 Anion Gap 18.9 (5-19) 07/02/25 16:53 BUN 5 mg/dL (6-20) L 07/02/25 16:53 Creatinine 0.5 mg/dL (0.5-0.9) 07/02/25 16:53 GFR Calculation 136.0 mL/min (90-130) H 07/02/25 16:53 Glucose 97 mg/dL (65-115) 07/02/25 16:53 Calculated Osmolality 295 mOsm/kg (285-295) 07/02/25 16:53 Lactic Acid 3.1 mmol/L (0.5-2.2) H 07/02/25 16:53 Calcium 9.5 mg/dL (8.5-10.5) 07/02/25 16:53 Magnesium 1.6 mg/dL (1.7-2.3) L 07/02/25 16:53 Total Bilirubin 0.6 mg/dL (0.15-1.2) 07/02/25 16:53 AST 41 U/L (0-32) H 07/02/25 16:53 ALT 26 U/L (0-33) 07/02/25 16:53 Alkaline Phosphatase 99 U/L (35-105) 07/02/25 16:53 Ammonia 38 umol/L (11-51) 07/02/25 16:53 Troponin T Baseline < 6 ng/L (0-10) 07/02/25 16:53 Troponin T 120 Minute < 6.0 ng/L (0-10) 07/02/25 18:43 Delta Troponin T 0 ABS# (0-10) 07/02/25 18:43 Total Protein 7.1 g/dL (6.6-8.7) 07/02/25 16:53 Albumin 4.6 g/dL (3.5-5.2) 07/02/25 16:53 Globulin 2.5 g/dL (1.3-4.6) 07/02/25 16:53 TSH 2.38 uIU/mL (0.27-4.20) 07/02/25 16:53 Urine Color Yellow (Yellow) 07/02/25 17:59 Urine Appearance Clear (CLEAR) 07/02/25 17:59 Urine pH 6.0 (5-7) 07/02/25 17:59 Ur Specific [place] 1.023 (1.005-1.030) 07/02/25 17:59 Urine Protein Negative (Negative) 07/02/25 17:59 Urine Glucose (UA) Negative (Normal) 07/02/25 17:59 Urine Ketones Trace (Negative) 07/02/25 17:59 Urine Blood Negative (Negative) 07/02/25 17:59 Urine Nitrate Negative (Negative) 07/02/25 17:59 Urine Bilirubin Negative (Negative) 07/02/25 17:59 Urine Urobilinogen 1.0 mg/dL (Negative) 07/02/25 17:59 Ur Leukocyte Esterase Negative (Negative) 07/02/25 17:59 Urine RBC 0-4 /hpf (0-2) H 07/02/25 17:59 Urine WBC 0-4 /hpf (0-5) H 07/02/25 17:59 Ur Squamous Epith Cells 5-10 /hpf (0-5) H 07/02/25 17:59 Amorphous Sediment Not Reportable 07/02/25 17:59 Urine Bacteria None /hpf (NONE) 07/02/25 17:59 Urine Mucus None /hpf 07/02/25 17:59 Salicylates < 0.3 mg/dL (3-10) L 07/02/25 16:53 Urine Opiates Screen Negative ng/mL (Negative) 07/02/25 17:59 Acetaminophen < 5.0 ug/mL (10-30) L 07/02/25 16:53 Ur Barbiturates Screen Negative ng/mL (Negative) 07/02/25 17:59 Ur Phencyclidine Scrn Negative ng/mL (Negative) 07/02/25 17:59 Ur Amphetamines Screen Negative ng/mL (Negative) 07/02/25 17:59 U Benzodiazepines Scrn Positive ng/mL (Negative) H 07/02/25 17:59 Urine Cocaine Screen Negative ng/mL (Negative) 07/02/25 17:59 U Marijuana (THC) Screen Negative ng/mL (Negative) 07/02/25 17:59 Ethyl Alcohol 14 mg/dL (0-10) H 07/02/25 16:53 Influenza A (PCR) Negative (Negative) 07/02/25 17:08 Influenza Type B (PCR) Negative (Negative) 07/02/25 17:08 RSV (PCR) Negative (Negative) 07/02/25 17:08 SARS-CoV-2 (PCR) Negative (Negative) 07/02/25 17:08 All radiology interpretation(s) finalized by discharge Discharge Plan Discharge Patient Disposition: Home Clinical Impression: Encephalopathy, Hypertension Condition: Stable Prescriptions: No Action albuterol sulfate [ProAir HFA] 90 mcg/actuation HFA aerosol inhaler 2 puff inhalation Q6H PRN (Reason: shortness of breath or wheezing) Qty: 8.5 0RF tramadol 50 mg tablet 50 - 100 mg PO Q6H PRN (Reason: Pain) naproxen 500 mg tablet 500 mg PO BID PRN (Reason: pain) Qty: 20 0RF tizanidine 2 mg tablet 2 mg PO DAILY PRN (Reason: muscle spasticity) Qty: 7 0RF magnesium 500 mg Tablet 15 mg PO DAILY multivit with min-folic acid 80 mcg Tablet,Chewable 1 tab PO QAM Discharge Orders: Discharge ED (Routine); Ordered 07/02/25 Ordered By: Ene Eugene Discharge Diet: Usual diet Discharge Activity: Increase activity as tolerated Patient Instructions: Altered Mental Status (ED), Opioid Safety, Pain Management, Patient Portal & [place] Instructions Activity Restrictions/Additional Instructions: You need to find a primary care provider as soon as possible and have follow-up in the next several days. Thank you for choosing [facility] for your healthcare needs today. You have been screened and evaluated and felt safe for discharge. Health conditions do change or evolve sometimes and as such it is important that you follow up with your Primary Doctor to be re checked, 3-5 days is a general good time frame for follow up. You are always welcome to return to the ED for re assessment if your symptoms are worsening or you have new concerns Print Language: Sudanese Coding Level of Care Code ED Hand Loom Weaver for Leidy Agosto
[2025-07-02 17:04] LABS: Hematocrit 35.3 % (36-47); Hemoglobin 12.70 g/dL (11.27-16.99); Mean Corpuscular HGB Conc 36.0 g/dL (30-55); Mean Corpuscular Hemoglobin 41.8 pg (27-33); Mean Corpuscular Volume 116.1 fl (85-98); Nucleated Red Blood Cells % 0 %; Platelet Count 322 10^3/cmm (157-399); Red Blood Count 3.04 10^6/uL (3.85-5.65); White Blood Count 5.56 10^3/uL (3.29-11.43)
[2025-07-02 17:11] LABS: ABG PCO2 35.5 mmHg (35-45); ABG PH Result 7.50 (7.35-7.45); Alveolar-Arterial Oxygen Gradi 1.4 mmHg (5-10); Arterial Blood Gas Hematocrit 37.7 % (37-47); Blood Gas Allen Test Pos; Blood Gas Operator Identificat WALCI; Blood Gas Sample Site Radial, right; Blood Gas Sample Type Arterial; Carboxyhemoglobin 6.5 %THgb (0.4-20.1); Glucose Level-ABG 100.0 mg/dL (70-115); HCO3 ABG 27.5 mmol/L (22-26); Ionized Calcium Level - ABG 1.1 mmol/L (1.1-1.4); Methemoglobin 0.2 % (0.4-1.5); Oxygen Saturation ABG 98.8; PO2 ABG 95.0 mmHg (80.0-100.0); PO2 FiO2 Ratio Arterial Blood 452; Potassium Level - ABG 6.3 mmol/L (3.5-5.0); Sodium Level - ABG 141.0 mmol/L (131-143)
[2025-07-02 17:17] VITALS: BP 142/112; O2SAT 100
[2025-07-02 17:27] LABS: Ammonia 38 umol/L (11-51)
[2025-07-02 17:48] LABS: Troponin(5th) Baseline < 6 ng/L (0-10)
[2025-07-02 17:50] LABS: Lactic Sepsis W/Reflex 3.1 mmol/L (0.5-2.2)
[2025-07-02 17:56] LABS: Respiratory Syncytial Virus Ce NEGATIVE (Negative); SARS-CoV-2 PCR NEGATIVE (Negative)
[2025-07-02 18:01] LABS: Acetaminophen < 5.0 ug/mL (10-30); Alanine Aminotransferase 26 U/L (0-33); Albumin Level 4.6 g/dL (3.5-5.2); Alcohol Level 14 mg/dL (0-10); Alkaline Phosphatase 99 U/L (35-105); Aspartate Amino Transferase 41 U/L (0-32); Blood Urea Nitrogen 5 mg/dL (6-20); Calcium 9.5 mg/dL (8.5-10.5); Carbon Dioxide 28 mmol/L (22-29); Chloride 101 mmol/L (98-107); Creatinine Clr Calc Pharmacy 133.8817; Globulin 2.5 g/dL (1.3-4.6); Glucose 97 mg/dL (65-115); Magnesium 1.6 mg/dL (1.7-2.3); Osmolality Calculated 295 mOsm/kg (285-295); Salicylate < 0.3 mg/dL (3-10); Sodium 144 mmol/L (136-145); Thyroid Stimulating Hormone 2.38 uIU/mL (0.27-4.20); Total Protein 7.1 g/dL (6.6-8.7)
[2025-07-02 18:02] LABS: Anion Gap 18.9 (5-19); Potassium 3.9 mmol/L (3.5-5.1)
[2025-07-02 18:23] LABS: Glucose Urine UA Negative (Normal); Nitrate Urine Negative (Negative); Specific Gravity, Urine 1.023 (1.005-1.030)
[2025-07-02 18:28] LABS: PCP Screen Urine Negative (Negative)
[2025-07-02 18:46] LABS: Reflex Lactate Order REFLEX LACTIC ORDERD
--- NOTE | 2025-07-02 18:48 | ECG_ITS ---
Vetr Test Date: 2025-07-03 Pat Name: Domi Charles Department: Room: Gender: Female Manager Membership: : 1985 Requested By: Ene Jurado Order Number: [id number] Carlson MD: ABRAHAM LUCERO Measurements Intervals [place] Rate: 91 P: 56 MD: 141 QRS: 44 QRSD: 100 T: 38 QT: 332 QTc: 410 Interpretive Statements SINUS RHYTHM POSSIBLE LEFT ATRIAL ENLARGEMENT [-0.1mV P-WAVE IN V1/V2] NONSPECIFIC ST & T-WAVE ABNORMALITY Compared to ECG 07/02/2025 16:28:34 T-wave abnormality now present Sinus tachycardia no longer present Electronically Signed On 07-05-2025 23:32:16 CDT by ABRAHAM LUCERO [email or web address]
[2025-07-02 19:17] VITALS: BP 155/101; PULSE 103; O2SAT 96
[2025-07-02 19:25] LABS: Troponin 5 2HR < 6.0 ng/L (0-10); Troponin 5 2HR Delta 0 ABS# (0-10)
== END 2025-07-02 19:19 | disposition home or self-care (01) ==
PROVIDERS: Emergency Provider Emergency Medicine
DX: G93.40 Encephalopathy, unspecified (principal); I10 Essential (primary) hypertension; Z11.52 Encounter for screening for COVID-19; F17.210 Nicotine dependence, cigarettes, uncomplicated
CPT/HCPCS: 36415; 36600; 70450; 71045; 80051; 80053; 80306; 80307; 81001; 82140; 82330; 82805; 83605; 83735; 84443; 84484; 85025; 85378; 87040; 87637; 93005; 99285